=== PATIENT | male | born 1990 | race Caucasian/White ===

== ENCOUNTER 2016-05-03 20:40 | Emergency (ER) | payer MEDICAID ==
[~2016-05-03] VITALS: Ht 175.3 cm; Wt 82.8 kg
[2016-05-03 20:43] VITALS: Ht 175.3 cm; Wt 82.8 kg
[2016-05-03] MEDS ORDERED: CLOT30CR24 TOP (22:38)
--- NOTE | 2016-05-04 00:26 | ERD ---
ER Documentation Chief Complaint Date/Time DATE: 05/04/16 TIME: 00:20 Chief Complaint LARGE RED BUMPS ON PENIS X 1 MONTH HPI 25 year old male with no significant past medical history presents to the ED complaining of a rash of the tip of penis that started intermittently 1 month ago. States that it is itchy. Denies any penile discharge. Denies any concern for STDs. Denies any fever, chills, abdominal pain, nausea, chest pain, shortness of breath. ROS All systems reviewed and are negative except as per history of present illness. Medications Home Meds Active Scripts Clotrimazole* (Clotrimazole* AF) 1% - 30 Gm Cream.gm., 1 APPLIC TOP BID for 7 Days, TUB Prov:NANCY HOGAN PA-C 05/03/16 PMhx/Soc History of Surgery: No Anesthesia Reaction: No Hx Neurological Disorder: No Hx Respiratory Disorders: No Hx Cardiac Disorders: No Hx Psychiatric Problems: No Hx Miscellaneous Medical Probl: No Hx Alcohol Use: No Hx Substance Use: No Hx Tobacco Use: No Physical Exam Vitals Vital Signs Date Time Temp Pulse Resp B/P Pulse Ox O2 Delivery O2 Flow Rate FiO2 05/03/16 20:43 97.2 79 16 124/60 100 Physical Exam Const: [id number], well-nourished. In no acute distress. Head: Atraumatic, normocephalic Eyes: Normal Conjunctiva without injection. No purulent discharge. ENT: Normal external ear, nose. Moist oropharynx without tonsillar exudates. Non -erythematous pharynx. Uvula midline. No drooling. No trismus. Neck: No cervical midline tenderness. Full range of motion. No meningismus. No cervical lymphadenopathy. No JVD. Resp: Clear to auscultation bilaterally. No wheezing, rhonchi, rales, or crackles. No accessory muscle use. No retractions. Cardio: Regular rate and rhythm. No murmurs, rubs or gallops. Abd: Soft, nontender, non distended. Normal bowel sounds. No palpable masses. No rebound tenderness. No guarding. Negative McBurney's point. Negative psoas sign. Negative obturator sign. : Uncircumcised penis. No penile discharge. No scrotal discharge. No scrotal tenderness. No paraphimosis. No phimosis. No hernias. Skin: No petechiae or rashes Back: No midline tenderness. No CVA tenderness. Ext: No cyanosis, or edema. Neur: Awake and alert. Normal gait. Normal coordination. Psych: Normal Mood and Affect Procedures/MDM 25-year-old male with no significant past medical history presents to the ED complaining of a rash on the tip of his penis. Patient is afebrile and nontoxic -appearing. Patient has normal vital signs. Patient's physical exam is consistent with balanitis. There is no penile discharge. Low suspicion for STDs, urinary tract infection, pyelonephritis, acute abdomen, or other emergent conditions. Discharge medications: Clotrimazole Follow up with primary care physician in 1-2 days. Instructed patient to return to the ED sooner for any worsening symptoms. Patient's questions were answered. Patient understood and agreed with discharge plan. Patient discharged stable. Departure Diagnosis: Primary Impression: Balanitis Condition: Stable Patient Instructions: Balanitis Referrals: [facility] YOU HAVE RECEIVED A MEDICAL SCREENING EXAM AND THE RESULTS INDICATE THAT YOU DO NOT HAVE A CONDITION THAT REQUIRES URGENT TREATMENT IN THE EMERGENCY DEPARTMENT. FURTHER EVALUATION AND TREATMENT OF YOUR CONDITION CAN WAIT UNTIL YOU ARE SEEN IN YOUR DOCTORS OFFICE WITHIN THE NEXT 1-2 DAYS. IT IS YOUR RESPONSIBILITY TO MAKE AN APPOINTMENT FOR FOLOW-UP CARE. IF YOU HAVE A PRIMARY DOCTOR --you should call your primary doctor and schedule an appointment IF YOU DO NOT HAVE A PRIMARY DOCTOR YOU CAN CALL OUR PHYSICIAN REFERRAL HOTLINE AT IF YOU CAN NOT AFFORD TO SEE A PHYSICIAN YOU CAN CHOSE FROM THE FOLLOWING [facility] CLINICS [facility] [address] [facility] [address] [facility] [facility] [address] [facility] [address] [facility] [address] [facility]. [facility]. [address] [facility] [facility] YOU HAVE RECEIVED A MEDICAL SCREENING EXAM AND THE RESULTS INDICATE THAT YOU DO NOT HAVE A CONDITION THAT REQUIRES URGENT TREATMENT IN THE EMERGENCY DEPARTMENT. FURTHER EVALUATION AND TREATMENT OF YOUR CONDITION CAN WAIT UNTIL YOU ARE SEEN IN YOUR DOCTORS OFFICE WITHIN THE NEXT 1-2 DAYS. IT IS YOUR RESPONSIBILITY TO MAKE AN APPOINTMENT FOR FOLOW-UP CARE. IF YOU HAVE A PRIMARY DOCTOR --you should call your primary doctor and schedule and appointment IF YOU DO NOT HAVE A PRIMARY DOCTOR YOU CAN CALL OUR PHYSICIAN REFERRAL HOTLINE AT . IF YOU CAN NOT AFFORD TO SEE A PHYSICIAN YOU CAN CHOSE FROM THE FOLLOWING [facility] INSTITUTIONS: [facility] [address] [place] [address] [facility] [address] [place], [place] [id number] [place] [address] [address] [place] [address] [facility] URGENT CARE/SPECIALTIES Additional Instructions: Llame al doctor MAANA y dennis melissa LELAND PARA DENTRO DE 1-2 NOONAN.Dgale a la secretaria que nosotros le instruimos hacer esta leland.Avise o llame si monaco condicin se empeora antes de la leland. Regresa aqui si peor o no mejor. NANCY HOGAN PA-C May 04, 2016 00:26
== END 2016-05-03 22:48 | disposition home or self-care (01) ==
LOC: FTE 20:40
DX: N48.1 Balanitis (principal)
CPT/HCPCS: 99283

== ENCOUNTER 2018-05-16 21:39 | Inpatient (IN) | payer MEDICAID ==
[~2018-05-16] VITALS: Ht 175.3 cm; Wt 68.3 kg
[~2018-05-16 21:39] MED LIST: CLOT30CR24 TOP
[2018-05-16] MEDS ORDERED: SOD CHLORIDE 0.9% 500 ML IV STA (22:38)
[2018-05-16] MEDS: POTASSIUM CHLORIDE 100 ML IVPB SCH (23:30)
[2018-05-17] VITALS (10 sets, daily range): BP systolic 110–121; BP diastolic 56–59; PULSE 59–101; RESP 17–20; Ht 175.3 cm; Wt 68.3 kg
[2018-05-17] MEDS ORDERED: ESCI5TAB10 PO (01:13)
[2018-05-17] MEDS ORDERED: BENZ1TAB7 PO (01:13)
[2018-05-17] MEDS ORDERED: OLAN15TA7 PO (01:13)
[2018-05-17] MEDS ORDERED: CLON1TAB13 PO (01:13)
[2018-05-17] MEDS: POTASSIUM CHLORIDE 100 ML IVPB SCH ×2 (01:54→04:35)
--- NOTE | 2018-05-17 03:33 | HP ---
Date/Time of Note Date/Time of Note DATE: 05/17/18 TIME: 03:20 Assessment/Plan VTE Prophylaxis Pharmacological prophylaxis: heparin Lines/Catheters IV Catheter Type (from Nrs): Saline Lock Assessment/Plan Assessment/Plan 27-year-old male with a history of depression, psychosis, anxiety, catatonia brought to the ER for altered mentation and excessive sleepiness PLAN -Head CT without acute findings. U tox and EtOH negative. -Patient recently hospitalized at [facility]. Will obtain records -Obtain MRI of the brain -EEG -Neurology consult -Replace potassium -will hold home psych medications Result Diagram: 05/16/18224805/16/182248 Results 24hrs Laboratory Tests Test 05/16/18 22:49 05/16/18 23:05 White Blood Count 12.4 H Red Blood Count 4.74 Hemoglobin 14.1 Hematocrit 40.6 L Mean Corpuscular Volume 85.7 Mean Corpuscular Hemoglobin 29.7 Mean Corpuscular Hemoglobin Concent 34.7 Red Cell Distribution Width 11.9 Platelet Count 187 Mean Platelet Volume 12.4 H Immature Granulocytes % 0.600 H Neutrophils % 78.8 H Lymphocytes % 14.1 L Monocytes % 6.0 Eosinophils % 0.2 Basophils % 0.3 Nucleated Red Blood Cells % 0.0 Immature Granulocytes # 0.070 H Neutrophils # 9.8 H Lymphocytes # 1.8 Monocytes # 0.8 Eosinophils # 0.0 Basophils # 0.0 Nucleated Red Blood Cells # 0.0 Sodium Level 143 Potassium Level 2.6 *L Chloride Level 114 H Carbon Dioxide Level 18 L Anion Gap 11 Blood Urea Nitrogen 13 Creatinine 0.54 L Est Glomerular Filtrat Rate mL/min > 60 Glucose Level 76 Calcium Level 8.0 L Total Bilirubin 0.5 Direct Bilirubin 0.00 Indirect Bilirubin 0.5 Aspartate Amino Transf (AST/SGOT) 16 Alanine Aminotransferase (ALT/SGPT) 36 Alkaline Phosphatase 58 Troponin I < 0.012 Total Protein 6.4 Albumin 3.8 Globulin 2.60 Albumin/Globulin Ratio 1.46 Salicylates Level < 1.0 L Acetaminophen Level < 10.0 L Ethyl Alcohol Level < 10.0 H Urine Color YELLOW Urine Clarity CLEAR Urine pH 6.0 Urine Specific [place] 1.021 Urine Ketones 1+ H Urine Nitrite NEGATIVE Urine Bilirubin NEGATIVE Urine Urobilinogen 1+ H Urine Leukocyte Esterase NEGATIVE Urine Microscopic RBC 4 Urine Microscopic WBC 0 Urine Hemoglobin 1+ H Urine Glucose NEGATIVE Urine Total Protein NEGATIVE Urine Opiates Screen Negative Urine Barbiturates Negative Urine Amphetamines Screen Negative Urine Benzodiazepines Screen Negative Urine Cocaine Screen Negative Urine Cannabinoids Negative HPI/ROS Admit Date/Time Admit Date/Time Hx of Present Illness This is a 27-year-old male with a history of depression, psychosis, anxiety, catatonia who was brought to the ER for excessive sleepiness and altered menta tion. Information is gathered from sister who was at the bedside. Patient eyes closed and only responds to painful stimuli. According to the sister, problem started around July of last year after patient his . They do however CT chest or off and on usually on weekends. Patient progressively became more depressed and at times has been experiencing auditory hallucinations. He was diagnosed with depression, psychosis and anxiety and has been placed on psychiatric medications. In January of last year, sister noticed that patient sometimes sleeps excessively for 36 hours or so. This happened again last month. At that time he was taken to [facility] where he was medically managed. Sister is not sure about the results of the brain imaging at that time. Patient is now brought to our ER because his eyes has been closed and has been sleeping for 48 hours. Sister said the last time he opened his eyes was around 7 PM on Monday, which is 2 days ago. She said he is never aggressive or combative. She did mention about occasional auditory hallucinations. No alcohol or illicit drug use. No history of seizure or seizure-like activity witnessed. Sister also went on to say that he lives with her Monday through Monday and on weekends he stays with his ex-. She said every time he comes back after staying with his , he becomes more altered and sick. . When he presented to ER, vitals were stable. Head CT without acute findings. Lab shows a WBC of 12.4 and a potassium of 2.6. Patient has not eaten for 48 hours. . PMH/Family/Social Past Medical History Medical History: other (See HPI) Medications Current Medications Potassium Chloride 100 ml @ 50 mls/hr Q2H IVPB Last administered on 05/17/18at 01:54; Admin Dose 50 MLS/HR; Start 05/16/18 at 23:30; Stop 05/17/18 at 05:29 Coded Allergies: No Known Allergy (Unverified , 05/16/18) Past Surgical History Past Surgical Hx: no surgical history Family History Significant Family History: no pertinent family hx Social History Alcohol Use: none Smoking Status: Never smoker Drug Use: none Exam/Review of Systems Vital Signs Vitals Vital Signs Date Temp Pulse Resp B/P (MAP) Pulse Ox O2 O2 Flow FiO2 Time Delivery Rate 05/17/18 81 14 112/65 100 Room Air 02:00 (81) 05/16/18 98.3 21:47 Exam Constitutional: other (Eyes closed. Responds to painful stimuli. No acute distress.) Head: normocephalic, atraumatic Respiratory: clear to auscultation, normal air movement Cardiovascular: regular rate and rhythm Gastrointestinal: soft Extremities: normal pulses Neurological: other (Eyes closed. Responds to painful stimuli.) FRANCISCO PERDOMO MD May 17, 2018 03:32
[2018-05-17] MEDS ORDERED: ONDANSETRON 4 MG INJ IV PRN (04:00)
[2018-05-17] MEDS ORDERED: NACL 0.9% 3 ML SYG IV SCH (04:00)
[2018-05-17] MEDS: D5W-0.45 NACL + KCL 20 MEQ 1,000 ML IV SCH ×3 (06:52→20:19)
[2018-05-17] MEDS: HEPARIN 5,000 UNIT/1 ML VIAL SC SCH ×2 (10:27→22:55)
--- NOTE | 2018-05-17 12:07 | QN ---
Documentation Comment Unable to evaluate patient. He is non responsive KAREN MCINTOSH NP May 17, 2018 12:07
--- NOTE | 2018-05-17 13:35 | PN ---
Date/Time of Note Date/Time of Note DATE: 05/17/18 TIME: 13:28 Assessment/Plan VTE Prophylaxis Risk score (from [facility])>0 risk: 2 SCD applied (from [facility]): Yes Pharmacological prophylaxis: heparin Lines/Catheters IV C[facility]ter Type (from [facility] Saline Lock Urinary Cath still in place: No Assessment/Plan Assessment/Plan 1. Altered mental status, prob psychogenic, r/o oethers, follow up with MRI and neurology consultation 2. Depression, psychosis, anxiety, catatonia, follow up with psychiatry Result Diagram: 05/17/181 05/17/181 Results 24hrs Laboratory Tests Test 05/16/18 22:49 05/16/18 23:05 05/17/18 04:31 White Blood Count 12.4 H 9.9 # Red Blood Count 4.74 4.22 L Hemoglobin 14.1 12.5 L Hematocrit 40.6 L 37.0 L Mean Corpuscular Volume 85.7 87.7 Mean Corpuscular Hemoglobin 29.7 29.6 Mean Corpuscular Hemoglobin Concent 34.7 33.8 Red Cell Distribution Width 11.9 12.0 Platelet Count 187 163 Mean Platelet Volume 12.4 H 12.3 H Immature Granulocytes % 0.600 H 0.300 Neutrophils % 78.8 H 76.4 Lymphocytes % 14.1 L 16.3 Monocytes % 6.0 6.6 Eosinophils % 0.2 0.2 Basophils % 0.3 0.2 Nucleated Red Blood Cells % 0.0 0.0 Immature Granulocytes # 0.070 H 0.030 Neutrophils # 9.8 H 7.6 H Lymphocytes # 1.8 1.6 Monocytes # 0.8 0.7 Eosinophils # 0.0 0.0 Basophils # 0.0 0.0 Nucleated Red Blood Cells # 0.0 0.0 Sodium Level 143 144 Potassium Level 2.6 *L 3.9 Chloride Level 114 H 110 Carbon Dioxide Level 18 L 20 L Anion Gap 11 14 H Blood Urea Nitrogen 13 16 Creatinine 0.54 L 0.81 Est Glomerular Filtrat Rate mL/min > 60 > 60 Glucose Level 76 86 Calcium Level 8.0 L 9.6 Total Bilirubin 0.5 0.7 Direct Bilirubin 0.00 0.00 Indirect Bilirubin 0.5 0.7 Aspartate Amino Transf (AST/SGOT) 16 18 Alanine Aminotransferase (ALT/SGPT) 36 42 Alkaline Phosphatase 58 65 Troponin I < 0.012 Total Protein 6.4 7.2 Albumin 3.8 4.3 Globulin 2.60 2.90 Albumin/Globulin Ratio 1.46 1.48 Salicylates Level < 1.0 L Acetaminophen Level < 10.0 L Ethyl Alcohol Level < 10.0 H Urine Color YELLOW Urine Clarity CLEAR Urine pH 6.0 Urine Specific [place] 1.021 Urine Ketones 1+ H Urine Nitrite NEGATIVE Urine Bilirubin NEGATIVE Urine Urobilinogen 1+ H Urine Leukocyte Esterase NEGATIVE Urine Microscopic RBC 4 Urine Microscopic WBC 0 Urine Hemoglobin 1+ H Urine Glucose NEGATIVE Urine Total Protein NEGATIVE Urine Opiates Screen Negative Urine Barbiturates Negative Urine Amphetamines Screen Negative Urine Benzodiazepines Screen Negative Urine Cocaine Screen Negative Urine Cannabinoids Negative Hemoglobin A1c 5.3 Magnesium Level 2.3 Triglycerides Level 67 Cholesterol Level 144 LDL Cholesterol, Calculated 90 HDL Cholesterol 41 Cholesterol/HDL Ratio 3.5 Thyroid Stimulating Hormone (TSH) 0.903 Subjective 24 Hr Interval Summary Free Text/Dictation unresponsive but the sister at bedside states he moves all extremities and opens eyes himself Exam/Review of Systems Exam Vitals Vital Signs Date Temp Pulse Resp B/P (MAP) Pulse Ox O2 O2 Flow FiO2 Time Delivery Rate 05/17/18 68 12:31 05/17/18 98.0 20 110/59 99 Room Air 10:58 (76) Constitutional: well developed, non-verbal Head: normocephalic, atraumatic Eyes: nl conjunctiva, EOMI, nl lids, PERRL ENMT: nl external ears & nose, nl lips & teeth, nl nasal mucosa & septum Neck: supple, non-tender Respiratory: clear to auscultation, normal air movement; No congested cough, No crackles/rales, No diminished breath sounds, No intercostal retraction, No labored breathing, No respirations, No tactile fremitus, No wheezing, No other Cardiovascular: regular rate and rhythm, nl pulses Gastrointestinal: soft, nl liver, spleen Musculoskeletal: nl extremities to inspection Extremities: normal pulses; No calf tenderness, No cyanosis, No clubbing, No edema, No pitting pedal edema, No palpable cord, No tenderness, No other Neurological: other (sleeping, daughter states he moves all extremities and opens eyes) Results Results 24hrs Laboratory Tests Test 05/16/18 22:49 05/16/18 23:05 05/17/18 04:31 White Blood Count 12.4 H 9.9 # Red Blood Count 4.74 4.22 L Hemoglobin 14.1 12.5 L Hematocrit 40.6 L 37.0 L Mean Corpuscular Volume 85.7 87.7 Mean Corpuscular Hemoglobin 29.7 29.6 Mean Corpuscular Hemoglobin Concent 34.7 33.8 Red Cell Distribution Width 11.9 12.0 Platelet Count 187 163 Mean Platelet Volume 12.4 H 12.3 H Immature Granulocytes % 0.600 H 0.300 Neutrophils % 78.8 H 76.4 Lymphocytes % 14.1 L 16.3 Monocytes % 6.0 6.6 Eosinophils % 0.2 0.2 Basophils % 0.3 0.2 Nucleated Red Blood Cells % 0.0 0.0 Immature Granulocytes # 0.070 H 0.030 Neutrophils # 9.8 H 7.6 H Lymphocytes # 1.8 1.6 Monocytes # 0.8 0.7 Eosinophils # 0.0 0.0 Basophils # 0.0 0.0 Nucleated Red Blood Cells # 0.0 0.0 Sodium Level 143 144 Potassium Level 2.6 *L 3.9 Chloride Level 114 H 110 Carbon Dioxide Level 18 L 20 L Anion Gap 11 14 H Blood Urea Nitrogen 13 16 Creatinine 0.54 L 0.81 Est Glomerular Filtrat Rate mL/min > 60 > 60 Glucose Level 76 86 Calcium Level 8.0 L 9.6 Total Bilirubin 0.5 0.7 Direct Bilirubin 0.00 0.00 Indirect Bilirubin 0.5 0.7 Aspartate Amino Transf (AST/SGOT) 16 18 Alanine Aminotransferase (ALT/SGPT) 36 42 Alkaline Phosphatase 58 65 Troponin I < 0.012 Total Protein 6.4 7.2 Albumin 3.8 4.3 Globulin 2.60 2.90 Albumin/Globulin Ratio 1.46 1.48 Salicylates Level < 1.0 L Acetaminophen Level < 10.0 L Ethyl Alcohol Level < 10.0 H Urine Color YELLOW Urine Clarity CLEAR Urine pH 6.0 Urine Specific [place] 1.021 Urine Ketones 1+ H Urine Nitrite NEGATIVE Urine Bilirubin NEGATIVE Urine Urobilinogen 1+ H Urine Leukocyte Esterase NEGATIVE Urine Microscopic RBC 4 Urine Microscopic WBC 0 Urine Hemoglobin 1+ H Urine Glucose NEGATIVE Urine Total Protein NEGATIVE Urine Opiates Screen Negative Urine Barbiturates Negative Urine Amphetamines Screen Negative Urine Benzodiazepines Screen Negative Urine Cocaine Screen Negative Urine Cannabinoids Negative Hemoglobin A1c 5.3 Magnesium Level 2.3 Triglycerides Level 67 Cholesterol Level 144 LDL Cholesterol, Calculated 90 HDL Cholesterol 41 Cholesterol/HDL Ratio 3.5 Thyroid Stimulating Hormone (TSH) 0.903 Medications Medication Current Medications Potassium Chloride/Dextrose/ Sod Cl 1,000 ml @ 120 mls/hr Q8H20M IV Last administered on 05/17/18at 06:52; Admin Dose 120 MLS/HR; Start 05/17/18 at 03:39 IV Flush (NS 3 ml) 3 ml PER PROTOCOL IV ; Start 05/17/18 at 04:00 Ondansetron HCl (Zofran Inj) 4 mg Q6H PRN IV NAUSEA/VOMITING; Start 05/17/18 at 04:00 Heparin Sodium (Porcine) (Heparin (5000 Units/1ml)) 5,000 unit Q12 SC Last administered on 05/17/18at 10:27; Admin Dose 5,000 UNIT; Start 05/17/18 at 09:00 MELANI GIBBS MD May 17, 2018 13:35
[2018-05-18] VITALS (14 sets, daily range): BP systolic 94–121; BP diastolic 52–63; PULSE 49–81; RESP 16–19
[2018-05-18] MEDS: D5W-0.45 NACL + KCL 20 MEQ 1,000 ML IV SCH ×3 (04:17→15:05)
[2018-05-18] MEDS: HEPARIN 5,000 UNIT/1 ML VIAL SC SCH ×2 (09:06→20:56)
--- NOTE | 2018-05-18 14:51 | PN ---
Date/Time of Note Date/Time of Note DATE: 05/18/18 TIME: 14:49 Assessment/Plan VTE Prophylaxis Risk score (from Ns)>0 risk: 2 SCD applied (from Ns): Yes Pharmacological prophylaxis: heparin Lines/Catheters IV [facility] Type (from [facility] Saline Lock Urinary Cath still in place: Yes Reason Cath still needed: other (indicate) Assessment/Plan Assessment/Plan 1. Altered mental status, consider psychogenic, r/o others, unremarkable MRI brain, follow up with neurology consultation 2. Depression, psychosis, anxiety, catatonia 3. DVT prophylaxis: heparin SQ Result Diagram: 05/18/1862605/18/18626 Results 24hrs Laboratory Tests Test 05/18/18 06:27 White Blood Count 7.1 # Red Blood Count 4.15 L Hemoglobin 12.3 L Hematocrit 36.7 L Mean Corpuscular Volume 88.4 Mean Corpuscular Hemoglobin 29.6 Mean Corpuscular Hemoglobin Concent 33.5 Red Cell Distribution Width 12.3 Platelet Count 148 Mean Platelet Volume 12.4 H Immature Granulocytes % 0.100 Neutrophils % 63.1 Lymphocytes % 26.6 Monocytes % 8.5 Eosinophils % 1.3 Basophils % 0.4 Nucleated Red Blood Cells % 0.0 Immature Granulocytes # 0.010 Neutrophils # 4.5 Lymphocytes # 1.9 Monocytes # 0.6 Eosinophils # 0.1 Basophils # 0.0 Nucleated Red Blood Cells # 0.0 Sodium Level 142 Potassium Level 3.6 Chloride Level 108 Carbon Dioxide Level 24 Anion Gap 10 Blood Urea Nitrogen 9 Creatinine 0.75 Est Glomerular Filtrat Rate mL/min > 60 Glucose Level 102 Calcium Level 9.5 Total Bilirubin 0.4 Direct Bilirubin 0.00 Indirect Bilirubin 0.4 Aspartate Amino Transf (AST/SGOT) 16 Alanine Aminotransferase (ALT/SGPT) 32 Alkaline Phosphatase 59 Total Protein 6.9 Albumin 4.1 Globulin 2.80 Albumin/Globulin Ratio 1.46 Subjective 24 Hr Interval Summary Free Text/Dictation moves all extremities per the sister Exam/Review of Systems Exam Vitals Vital Signs Date Temp Pulse Resp B/P (MAP) Pulse Ox O2 O2 Flow FiO2 Time Delivery Rate 05/18/18 63 12:13 05/18/18 98.0 19 112/54 100 11:32 (73) 05/18/18 Room Air 01:51 Intake and Output 3/05/17/18 05/18/18 1515:00 23:00 07:00 IntakeIntake Total 200 ml 0 ml 1000 ml OutputOutput Total 1800 ml 350 ml BalanceBalance 200 ml -1800 ml 650 ml Constitutional: non-verbal Head: normocephalic, atraumatic Eyes: nl conjunctiva, EOMI, nl lids, PERRL ENMT: nl external ears & nose, nl lips & teeth, nl nasal mucosa & septum Neck: supple, non-tender Respiratory: clear to auscultation, normal air movement; No congested cough, No crackles/rales, No diminished breath sounds, No intercostal retraction, No labored breathing, No respirations, No tactile fremitus, No wheezing, No other Cardiovascular: regular rate and rhythm, nl pulses; No bruits, No diastolic murmur, No edema, No gallop, No irregular rhythm, No jugular venous distention (JVD), No murmurs/extra sounds, No rub, No systolic murmur, No S3, No S4, No other Gastrointestinal: soft, nl liver, spleen Musculoskeletal: nl extremities to inspection Extremities: normal pulses; No calf tenderness, No cyanosis, No clubbing, No edema, No pitting pedal edema, No palpable cord, No tenderness, No other Neurological: unresponsive Results Results 24hrs Laboratory Tests Test 05/18/18 06:27 White Blood Count 7.1 # Red Blood Count 4.15 L Hemoglobin 12.3 L Hematocrit 36.7 L Mean Corpuscular Volume 88.4 Mean Corpuscular Hemoglobin 29.6 Mean Corpuscular Hemoglobin Concent 33.5 Red Cell Distribution Width 12.3 Platelet Count 148 Mean Platelet Volume 12.4 H Immature Granulocytes % 0.100 Neutrophils % 63.1 Lymphocytes % 26.6 Monocytes % 8.5 Eosinophils % 1.3 Basophils % 0.4 Nucleated Red Blood Cells % 0.0 Immature Granulocytes # 0.010 Neutrophils # 4.5 Lymphocytes # 1.9 Monocytes # 0.6 Eosinophils # 0.1 Basophils # 0.0 Nucleated Red Blood Cells # 0.0 Sodium Level 142 Potassium Level 3.6 Chloride Level 108 Carbon Dioxide Level 24 Anion Gap 10 Blood Urea Nitrogen 9 Creatinine 0.75 Est Glomerular Filtrat Rate mL/min > 60 Glucose Level 102 Calcium Level 9.5 Total Bilirubin 0.4 Direct Bilirubin 0.00 Indirect Bilirubin 0.4 Aspartate Amino Transf (AST/SGOT) 16 Alanine Aminotransferase (ALT/SGPT) 32 Alkaline Phosphatase 59 Total Protein 6.9 Albumin 4.1 Globulin 2.80 Albumin/Globulin Ratio 1.46 Medications Medication Current Medications Potassium Chloride/Dextrose/ Sod Cl 1,000 ml @ 120 mls/hr Q8H20M IV Last administered on 05/18/18at 13:02; Admin Dose 120 MLS/HR; Start 05/17/18 at 03:39 IV Flush (NS 3 ml) 3 ml PER PROTOCOL IV ; Start 05/17/18 at 04:00 Ondansetron HCl (Zofran Inj) 4 mg Q6H PRN IV NAUSEA/VOMITING; Start 05/17/18 at 04:00 Heparin Sodium (Porcine) (Heparin (5000 Units/1ml)) 5,000 unit Q12 SC Last administered on 05/18/18at 09:06; Admin Dose 5,000 UNIT; Start 05/17/18 at 09:00 MELANI GIBBS MD May 18, 2018 14:51
--- NOTE | 2018-05-18 16:51 | CONS ---
Assessment/Plan Assessment/Plan Hospital Course 27 M c/ Hx of psychiatric ill, who is admitted for evaluation of ams.. The clinical picture suggests a decompensated psychiatric disorder.. An acute COAT PADDER process is, though, not yet excluded.. MRI brain is without evidence of acute intracranial pathology.. P: Await EEG to evaluate for epileptiform activity Add ammonia, B1, B12 levels Psychiatry follow up Continued medical management and supportive care per primary Will follow clinically Consultation Date/Type/Reason Admit Date/Time Type of Consult Neurology Reason for Consultation ams Requesting Provider: MELANI GIBBS MD Date/Time of Note DATE: 05/18/18 TIME: 16:50 Hx of Present Illness The pt is currently unable to contribute a hx. It is elsewhere noted: Hx of Present Illness This is a 27-year-old male with a history of depression, psychosis, anxiety, catatonia who was brought to the ER for excessive sleepiness and altered mentation. Information is gathered from sister who was at the bedside. Patient eyes closed and only responds to painful stimuli. According to the sister, problem started around July of last year after patient his . They do however CT chest or off and on usually on weekends. Patient progressively became more depressed and at times has been experiencing auditory hallucinations. He was diagnosed with depression, psychosis and anxiety and has been placed on psychiatric medications. In January of last year, sister noticed that patient sometimes sleeps excessively for 36 hours or so. This happened again last month. At that time he was taken to [facility] where he was medically managed. Sister is not sure about the results of the brain imaging at that time. Patient is now brought to our ER because his eyes h as been closed and has been sleeping for 48 hours. Sister said the last time he opened his eyes was around 7 PM on Monday, which is 2 days ago. She said he is never aggressive or combative. She did mention about occasional auditory hallucinations. No alcohol or illicit drug use. No history of seizure or seizure-like activity witnessed. Sister also went on to say that he lives with her Monday through Monday and on weekends he stays with his ex-. She said every time he comes back after staying with his , he becomes more altered and sick. . When he presented to ER, vitals were stable. Head CT without acute findings. Lab shows a WBC of 12.4 and a potassium of 2.6. Patient has not eaten for 48 hours. . Subjective hx not possible: pt non-verbal Exam/Review of Systems Exam Vitals Vital Signs Date Temp Pulse Resp B/P (MAP) Pulse Ox O2 O2 Flow FiO2 Time Delivery Rate 05/18/18 81 16:13 05/18/18 98.1 19 105/56 100 16:02 (72) 05/18/18 Room Air 01:51 Intake and Output 05/17/18 05/17/18 05/18/18 1515:00 23:00 07:00 IntakeIntake Total 200 ml 0 ml 1000 ml OutputOutput Total 1800 ml 350 ml BalanceBalance 200 ml -1800 ml 650 ml Exam PE: Gen Appearance: No Apparent Distress HEENT: Normocephalic Cardiovascular: Regular rate Abdomen: Soft Extremities: Dry NE: The patient was obtunded and nonverbal. The pt did not open his eyes or otherwise respond meaningfully to noxious stimuli. Cranial nerve examination was limited by mental status. Pupils were equal and reactive to light. There was no afferent pupillary defect. Funduscopic examination was limited. Face was grossly symmetric, w/ present corneal reflexes. Tone was normal. Muscle bulk was normal. I did not see fasciculations. The patient did not withdraw to noxious stimulation x 4. Coordination and gait testing was limited by mental status. Arm and leg reflexes were within normal limits and symmetric. Peacock's sign was absent. Plantar responses were flexor. Results Result Diagram: 05/18/18 0627 05/18/18 0627 Results 24hrs Laboratory Tests Test 05/18/18 06:27 White Blood Count 7.1 # Red Blood Count 4.15 L Hemoglobin 12.3 L Hematocrit 36.7 L Mean Corpuscular Volume 88.4 Mean Corpuscular Hemoglobin 29.6 Mean Corpuscular Hemoglobin Concent 33.5 Red Cell Distribution Width 12.3 Platelet Count 148 Mean Platelet Volume 12.4 H Immature Granulocytes % 0.100 Neutrophils % 63.1 Lymphocytes % 26.6 Monocytes % 8.5 Eosinophils % 1.3 Basophils % 0.4 Nucleated Red Blood Cells % 0.0 Immature Granulocytes # 0.010 Neutrophils # 4.5 Lymphocytes # 1.9 Monocytes # 0.6 Eosinophils # 0.1 Basophils # 0.0 Nucleated Red Blood Cells # 0.0 Sodium Level 142 Potassium Level 3.6 Chloride Level 108 Carbon Dioxide Level 24 Anion Gap 10 Blood Urea Nitrogen 9 Creatinine 0.75 Est Glomerular Filtrat Rate mL/min > 60 Glucose Level 102 Calcium Level 9.5 Total Bilirubin 0.4 Direct Bilirubin 0.00 Indirect Bilirubin 0.4 Aspartate Amino Transf (AST/SGOT) 16 Alanine Aminotransferase (ALT/SGPT) 32 Alkaline Phosphatase 59 Total Protein 6.9 Albumin 4.1 Globulin 2.80 Albumin/Globulin Ratio 1.46 Medications Medication Current Medications Potassium Chloride/Dextrose/ Sod Cl 1,000 ml @ 75 mls/hr [id number] IV Last administered on 05/18/18at 15:05; Admin Dose 75 MLS/HR; Start 05/17/18 at 03:39 IV Flush (NS 3 ml) 3 ml PER PROTOCOL IV ; Start 05/17/18 at 04:00 Ondansetron HCl (Zofran Inj) 4 mg Q6H PRN IV NAUSEA/VOMITING; Start 05/17/18 at 04:00 Heparin Sodium (Porcine) (Heparin (5000 Units/1ml)) 5,000 unit Q12 SC Last administered on 05/18/18at 09:06; Admin Dose 5,000 UNIT; Start 05/17/18 at 09:00 Past Medical History reviewed Medical History: other (See HPI) Home Meds Active Scripts Clotrimazole* (Clotrimazole* AF) 1% - 30 Gm Cream.gm., 1 APPLIC TOP BID for 7 Days, TUB Prov:NANCY HOGAN PA-C 05/03/16 Reported Medications Escitalopram Oxalate* (Escitalopram Oxalate*) 5 Mg Tablet, 5 MG PO DAILY, #30 TAB 05/17/18 Clonazepam* (Clonazepam*) 1 Mg Tablet, 1 MG PO Q8H PRN for ANXIETY, TAB 05/17/18 Olanzapine* (Olanzapine*) 15 Mg Tablet, 15 MG PO DAILY, TAB 05/17/18 Benztropine Mesylate* (Benztropine Mesylate*) 1 Mg Tablet, 1 MG PO BID, TAB 05/17/18 Medications Current Medications Potassium Chloride/Dextrose/ Sod Cl 1,000 ml @ 75 mls/hr [id number] IV Last administered on 05/18/18at 15:05; Admin Dose 75 MLS/HR; Start 05/17/18 at 03:39 IV Flush (NS 3 ml) 3 ml PER PROTOCOL IV ; Start 05/17/18 at 04:00 Ondansetron HCl (Zofran Inj) 4 mg Q6H PRN IV NAUSEA/VOMITING; Start 05/17/18 at 04:00 Heparin Sodium (Porcine) (Heparin (5000 Units/1ml)) 5,000 unit Q12 SC Last administered on 05/18/18at 09:06; Admin Dose 5,000 UNIT; Start 05/17/18 at 09:00 Allergies: Coded Allergies: No Known Allergy (Unverified , 05/17/18) Past Surgical History reviewed Past Surgical Hx: no surgical history Social History reviewed Alcohol Use: none Smoking Status: Never smoker Drug Use: none ELODIA RODRIGUEZ NP May 18, 2018 16:51 FIDEL CHAVEZ May 18, 2018 20:11
[2018-05-19] VITALS (13 sets, daily range): BP systolic 106–117; BP diastolic 58–63; PULSE 68–129; RESP 16
[2018-05-19] MEDS: D5W-0.45 NACL + KCL 20 MEQ 1,000 ML IV SCH ×2 (01:16→14:49)
--- NOTE | 2018-05-19 07:25 | EEG ---
EEG NOTE Report Details DATE OF TEST: 05/17/18 HISTORY: The patient is a 27-year-old M who presents with altered mental status. This EEG is requested to evaluate for seizures. SEDATION: None. CONDITIONS OF RECORDING: This EEG was recorded digitally on the [employer] machine, using the International 10-20 System of electrodes plus anterior temporals and [place]. STATES SAMPLED: Comatose. FINDINGS: During wakefulness, there is an 8 Hz posterior dominant rhythm. There is a normal [id number] frequency-amplitude gradient. The remainder of the awake background is normal. Photic stimulation does not elicit any definite driving responses or epileptiform discharges. Hyperventilation was not performed. No asymmetries, focal abnormalities or epileptiform discharges were seen. IMPRESSION: Normal electroencephalogram during wakefulness and drowsiness. FIDEL CHAVEZ May 19, 2018 07:25
[2018-05-19] MEDS: HEPARIN 5,000 UNIT/1 ML VIAL SC SCH ×2 (08:18→21:47)
--- NOTE | 2018-05-19 09:18 | CONS ---
Assessment/Plan Assessment/Plan Hospital Course 27 M c/ Hx of psychiatric ill, who is admitted for evaluation of ams.. The clinical picture suggests a decompensated psychiatric disorder.. 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 MRI brain is without evidence of acute intracranial pathology.. EEG was normal. TSH/ammonia/B12 wnl P: Await B1 levels Psychiatry follow up Continued medical management and supportive care per primary Will follow clinically Consultation Date/Type/Reason Admit Date/Time May 17, 2018 at 01:36 Type of Consult Neurology Reason for Consultation ams Requesting Provider: MELANI GIBBS MD Date/Time of Note DATE: 05/19/18 TIME: 09:18 24 HR Interval Summary Free Text/Dictation Continues acute care. S/p EEG Exam Vital Signs Vitals Vital Signs Date Temp Pulse Resp B/P (MAP) Pulse Ox O2 O2 Flow FiO2 Time Delivery Rate 05/19/18 84 08:00 05/19/18 98.3 16 106/59 96 Room Air 07:11 (75) Intake and Output 05/18/18 05/18/18 05/19/18 1515:00 23:00 07:00 IntakeIntake Total 360 ml 0 ml 450 ml OutputOutput Total 1600 ml 1000 ml BalanceBalance 360 ml -1600 ml -550 ml Exam PE: Gen Appearance: No Apparent Distress HEENT: Normocephalic Cardiovascular: Regular rate Abdomen: Soft Extremities: Dry NE: The patient was obtunded and nonverbal. The pt did not open his eyes or otherwise respond meaningfully to noxious stimuli. Cranial nerve examination was limited by mental status. Pupils were equal and reactive to light. There was no afferent pupillary defect. Funduscopic examination was limited. Face was grossly symmetric, w/ present corneal reflexes. Tone was normal. Muscle bulk was normal. I did not see fasciculations. The patient did not withdraw to noxious stimulation x 4. Coordination and gait testing was limited by mental status. Arm and leg reflexes were within normal limits and symmetric. Peacock's sign was absent. Plantar responses were flexor. ELODIA RODRIGUEZ NP May 19, 2018 09:18 FIDEL CHAVEZ May 20, 2018 06:58
--- NOTE | 2018-05-19 15:51 | PSY ---
Date/Time of Note Date/Time of Note DATE: 05/19/18 TIME: 18:41 Psychiatric Subjective Eval Consent Pt consented to telemedicine: Yes Subjective Evaluation Patient location: inpatient Chief Complaint: bib ra from home for aloc, hx of psych dx, depression, altered, History of present illness HPI: 27 yo male with ho depression and psychosis, is catatonic, brought into hospital inpatient for catatonia, unresponsive (is responsive ot pain) not eating just keeps eyes closed. Sister was in room and gave parallel via net finisher. Per her, pt has been catatonic since 05/15. Reports his happened a month ago also. Reports he did wake up once to day to ask what is going on. Sister also reprots pt was having AH before catatonia set in. Past Psych Hx: + ho psych admits, denies si Meds: was taking clonazepam 1mg hs, zyprexa 5mg qhs and lexapro All: nkda PMhx: denies MSE: pt disheveled, eyes closed, looks lie he is sleeping but does not respond to voice Imp: 27 yo male, catatonic gravely dsiabled Full delirium workup including MRI/CT brain/head, rpr tsh, utox infectious workup (e.g., UA), cbc lfts nh4 electrolytes Utox 5150 psych admit For moderate agitation Zyprexa 5mg po prn For severe agitation or catatonia chlorpromazine 25mg im prn recommend chlorpromazine 15 im bid or 25mg pobid ativan 1mg tid iv for catatonia (can try 2mg iv x1 for first dose if 1mg has no effect and pt not too drowsy; once pt responds affect taper to avoid dependence) 1:1 sitter while on medicine Medical history Problems Medical Problems: (1) Balanitis Status: Acute (2) Balanitis Status: Acute (3) Catatonia Status: Acute (4) Hypokalemia Status: Acute Allergies: Coded Allergies: No Known Allergy (Unverified , 05/17/18) Psychiatric Objective Eval Mental Status Examination: Laboratory Results Laboratory Tests Test 05/18/18 06:27 05/18/18 20:46 05/19/18 06:03 White Blood Count 7.1 10^3/ul Red Blood Count 4.15 10^6/ul Hemoglobin 12.3 g/dl Hematocrit 36.7 % Mean Corpuscular Volume 88.4 fl Mean Corpuscular Hemoglobin 29.6 pg Mean Corpuscular 33.5 g/dl Hemoglobin Concent Red Cell Distribution Width 12.3 % Platelet Count 148 10^3/UL Mean Platelet Volume 12.4 fl Immature Granulocytes % 0.100 % Neutrophils % 63.1 % Lymphocytes % 26.6 % Monocytes % 8.5 % Eosinophils % 1.3 % Basophils % 0.4 % Nucleated Red Blood Cells % 0.0 /100WBC Immature Granulocytes # 0.010 10^3/ul Neutrophils # 4.5 10^3/ul Lymphocytes # 1.9 10^3/ul Monocytes # 0.6 10^3/ul Eosinophils # 0.1 10^3/ul Basophils # 0.0 10^3/ul Nucleated Red Blood Cells # 0.0 10^3/ul Sodium Level 142 mmol/L 141 mmol/L Potassium Level 3.6 mmol/L 3.4 mmol/L Chloride Level 108 mmol/L 106 mmol/L Carbon Dioxide Level 24 mmol/L 24 mmol/L Anion Gap 10 11 Blood Urea Nitrogen 9 mg/dl 8 mg/dl Creatinine 0.75 mg/dl 0.86 mg/dl Est Glomerular Filtrat Rate mL/min > 60 mL/min > 60 mL/min Glucose Level 102 mg/dl 97 mg/dl Calcium Level 9.5 mg/dl 9.7 mg/dl Total Bilirubin 0.4 mg/dl Direct Bilirubin 0.00 mg/dl Indirect Bilirubin 0.4 mg/dl Aspartate Amino Transf (AST/SGOT) 16 IU/L Alanine 32 IU/L Aminotransferase (ALT/SGPT) Alkaline Phosphatase 59 IU/L Total Protein 6.9 g/dl Albumin 4.1 g/dl Globulin 2.80 g/dl Albumin/Globulin Ratio 1.46 Ammonia < 9 umol/l Vitamin B12 Level 584 pg/ml Magnesium Level 2.0 mg/dl Assessment and Plan Recommendation/Plan Multiple antipsychotics: No Discharge Disposition: Psychiatric inpatient Legal Status: Place involuntary hold BRENDAN SIM May 19, 2018 15:51
--- NOTE | 2018-05-19 17:19 | PN ---
Date/Time of Note Date/Time of Note DATE: 05/19/18 TIME: 17:15 Assessment/Plan VTE Prophylaxis Risk score (from Nsg)>0 risk: 2 SCD applied (from Nsg): Yes Pharmacological prophylaxis: NA/contraindicated Pharm contraindication: low risk/ambulating Lines/Catheters IV Catheter Type (from Nrsg): Saline Lock Urinary Cath still in place: Yes Reason Cath still needed: other (indicate) (catatonia) Assessment/Plan Assessment/Plan 27 yo schizophrenic man presents with acute catatonia #Catatonia - seen by psychiatry today - Will start IM chlorpromazine ATC - IV ativan prn catatonia #Schizophrenia - Will resume home meds when acute catatonia resolves and patient able to take PO DVT: SCDs GI: None Result Diagram: 05/18/1827 05/19/18 0603 Subjective 24 Hr Interval Summary Free Text/Dictation No acute overnight events. Remains catatonic and unresponsive. According to sister he woke up for 15 minutes, asked where he was, appeared confused; then fell back asleep. Exam/Review of Systems Exam Vitals Vital Signs Date Temp Pulse Resp B/P (MAP) Pulse Ox O2 O2 Flow FiO2 Time Delivery Rate 05/19/18 89 16:00 05/19/18 98.2 16 114/58 99 Room Air 15:05 (76) Intake and Output 05/18/18 05/18/18 05/19/18 1515:00 23:00 07:00 IntakeIntake Total 360 ml 0 ml 450 ml OutputOutput Total 1600 ml 1000 ml BalanceBalance 360 ml -1600 ml -550 ml Exam Constitutional: non-verbal Head: normocephalic, atraumatic Eyes: nl conjunctiva, EOMI, nl lids, PERRL ENMT: nl external ears & nose, nl lips & teeth, nl nasal mucosa & septum Neck: supple, non-tender Respiratory: clear to auscultation, normal air movement; No congested cough, No crackles/rales, No diminished breath sounds, No intercostal retraction, No labored breathing, No respirations, No tactile fremitus, No wheezing, No other Cardiovascular: regular rate and rhythm, nl pulses; No bruits, No diastolic murmur, No edema, No gallop, No irregular rhythm, No jugular venous distention (JVD), No murmurs/extra sounds, No rub, No systolic murmur, No S3, No S4, No other Gastrointestinal: soft, nl liver, spleen Musculoskeletal: nl extremities to inspection Extremities: normal pulses; No calf tenderness, No cyanosis, No clubbing, No edema, No pitting pedal edema, No palpable cord, No tenderness, No other Neurological: unresponsive Results Results 24hrs Laboratory Tests Test 05/18/18 20:46 05/19/18 06:03 Ammonia < 9 L Vitamin B12 Level 584 Sodium Level 141 Potassium Level 3.4 L Chloride Level 106 Carbon Dioxide Level 24 Anion Gap 11 Blood Urea Nitrogen 8 Creatinine 0.86 Est Glomerular Filtrat Rate mL/min > 60 Glucose Level 97 Calcium Level 9.7 Magnesium Level 2.0 Medications Medication Current Medications Potassium Chloride/Dextrose/ Sod Cl 1,000 ml @ 75 mls/hr [id number] IV Last administered on 05/19/18at 14:49; Admin Dose 75 MLS/HR; Start 05/17/18 at 03:39 IV Flush (NS 3 ml) 3 ml PER PROTOCOL IV ; Start 05/17/18 at 04:00 Ondansetron HCl (Zofran Inj) 4 mg Q6H PRN IV NAUSEA/VOMITING; Start 05/17/18 at 04:00 Heparin Sodium (Porcine) (Heparin (5000 Units/1ml)) 5,000 unit Q12 SC Last a dministered on 05/19/18at 08:18; Admin Dose 5,000 UNIT; Start 05/17/18 at 09:00 GISSEL CLAYTON MD May 19, 2018 17:19
[2018-05-19] MEDS ORDERED: LORAZEPAM 2 MG INJ IV ONE (17:30)
[2018-05-19] MEDS: CHLORPROMAZINE 25 MG INJ IM SCH (21:35)
[2018-05-20] VITALS (11 sets, daily range): BP systolic 107–123; BP diastolic 55–58; PULSE 75–107; RESP 16–19
[2018-05-20] MEDS: D5W-0.45 NACL + KCL 20 MEQ 1,000 ML IV SCH ×2 (03:54→17:01)
[2018-05-20] MEDS: CHLORPROMAZINE 25 MG INJ IM SCH ×2 (09:53→21:29)
[2018-05-20] MEDS: HEPARIN 5,000 UNIT/1 ML VIAL SC SCH ×2 (09:54→21:43)
--- NOTE | 2018-05-20 11:03 | CONS ---
Assessment/Plan Assessment/Plan Hospital Course 27 M c/ Hx of psychiatric ill, who is admitted for evaluation of ams.. The clinical picture suggests a decompensated psychiatric disorder.. 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 MRI brain is without evidence of acute intracranial pathology.. EEG was normal. TSH/ammonia/B12 wnl P: Await B1 levels Psychiatry follow up Continued medical management and supportive care per primary Will follow clinically Consultation Date/Type/Reason Admit Date/Time May 17, 2018 at 01:36 Type of Consult Neurology Reason for Consultation ams Requesting Provider: MELANI GIBBS MD Date/Time of Note DATE: 05/20/18 TIME: 11:02 24 HR Interval Summary Free Text/Dictation Continues acute care. Family at bedside reports that he has had wakeful episodes w/ interaction.. Exam Vital Signs Vitals Vital Signs Date Temp Pulse Resp B/P (MAP) Pulse Ox O2 O2 Flow FiO2 Time Delivery Rate 05/20/18 93 08:11 05/20/18 98.9 18 113/56 96 07:11 (75) 05/19/18 Room Air 23:50 Intake and Output 05/19/18 05/19/18 05/20/18 1515:00 23:00 07:00 IntakeIntake Total 550 ml 300 ml 1000 ml OutputOutput Total 1800 ml 1200 ml BalanceBalance 550 ml -1500 ml -200 ml Exam PE: Gen Appearance: No Apparent Distress HEENT: Normocephalic Cardiovascular: Regular rate Abdomen: Soft Extremities: Dry NE: The patient was obtunded, nonverbal.. Cranial nerve examination was limited by mental status. Pupils were equal and reactive to light. There was no afferent pupillary defect. Funduscopic examination was limited. Face was grossly symmetric, w/ present corneal and cough reflexes. Tone was normal. Muscle bulk was normal. I did not see fasciculations. The patient withdrew to noxious stimulation x 4. Coordination and gait testing was limited by mental status. Arm and leg reflexes were within normal limits and symmetric. Peacock's sign was absent. Plantar responses were flexor. FIDEL CHAVEZ May 20, 2018 11:03
[2018-05-20] MEDS: LORAZEPAM 2 MG INJ IV PRN (13:16)
--- NOTE | 2018-05-20 14:15 | PN ---
Date/Time of Note Date/Time of Note DATE: 05/20/18 TIME: 14:14 Assessment/Plan VTE Prophylaxis Risk score (from Nsg)>0 risk: 4 SCD applied (from Nsg): Yes Pharmacological prophylaxis: NA/contraindicated Pharm contraindication: low risk/ambulating Lines/Catheters IV Catheter Type (from Nrsg): Saline Lock Urinary Cath still in place: Yes Reason Cath still needed: other (indicate) (catatonia) Assessment/Plan Assessment/Plan 27 yo schizophrenic man presents with acute catatonia #Catatonia - seen by tele-psych - IM chlorpromazine BID - IV ativan prn catatonia #Schizophrenia - Will resume home meds when acute catatonia resolves and patient able to take PO DVT: SCDs GI: None Result Diagram: 05/20/18 0608 05/20/18 06 Subjective 24 Hr Interval Summary Free Text/Dictation No acute overnight events. On my exam he is still completely unresponsive. According to sister, he has more brief episodes of wakefulness. According to nurse, does not fully wake up after ativan but does have more fac ial movements and grimacing. Exam/Review of Systems Exam Vitals Vital Signs Date Temp Pulse Resp B/P (MAP) Pulse Ox O2 O2 Flow FiO2 Time Delivery Rate 05/20/18 107 12:17 05/20/18 98.7 17 107/58 95 11:36 (74) 05/19/18 Room Air 23:50 Intake and Output 05/19/18 05/19/18 05/20/18 1515:00 23:00 07:00 IntakeIntake Total 550 ml 300 ml 1000 ml OutputOutput Total 1800 ml 1200 ml BalanceBalance 550 ml -1500 ml -200 ml Exam Constitutional: non-verbal Head: normocephalic, atraumatic Eyes: nl conjunctiva, EOMI, nl lids, PERRL ENMT: nl external ears & nose, nl lips & teeth, nl nasal mucosa & septum Neck: supple, non-tender Respiratory: clear to auscultation, normal air movement; No congested cough, No crackles/rales, No diminished breath sounds, No in tercostal retraction, No labored breathing, No respirations, No tactile fremitus, No wheezing, No other Cardiovascular: regular rate and rhythm, nl pulses; No bruits, No diastolic murmur, No edema, No gallop, No irregular rhythm, No jugular venous distention (JVD), No murmurs/extra sounds, No rub, No systolic murmur, No S3, No S4, No other Gastrointestinal: soft, nl liver, spleen Musculoskeletal: nl extremities to inspection Extremities: normal pulses; No calf tenderness, No cyanosis, No clubbing, No edema, No pitting pedal edema, No palpable cord, No tenderness, No other Neurological: unresponsive Results Results 24hrs Laboratory Tests Test 05/20/18 06:08 White Blood Count 5.6 # Red Blood Count 4.32 L Hemoglobin 12.8 L Hematocrit 38.3 L Mean Corpuscular Volume 88.7 Mean Corpuscular Hemoglobin 29.6 Mean Corpuscular Hemoglobin Concent 33.4 Red Cell Distribution Width 12.2 Platelet Count 158 Mean Platelet Volume 11.7 H Immature Granulocytes % 0.400 Neutrophils % 74.0 Lymphocytes % 15.6 Monocytes % 8.3 Eosinophils % 1.3 Basophils % 0.4 Nucleated Red Blood Cells % 0.0 Immature Granulocytes # 0.020 Neutrophils # 4.1 Lymphocytes # 0.9 Monocytes # 0.5 Eosinophils # 0.1 Basophils # 0.0 Nucleated Red Blood Cells # 0.0 Sodium Level 141 Potassium Level 3.9 Chloride Level 105 Carbon Dioxide Level 24 Anion Gap 12 Blood Urea Nitrogen 9 Creatinine 0.72 Est Glomerular Filtrat Rate mL/min > 60 Glucose Level 99 Calcium Level 9.6 Phosphorus Level 4.6 Magnesium Level 2.0 Total Bilirubin 0.3 Direct Bilirubin 0.00 Indirect Bilirubin 0.3 Aspartate Amino Transf (AST/SGOT) 24 Alanine Aminotransferase (ALT/SGPT) 32 Alkaline Phosphatase 66 Ammonia 22 Total Protein 7.4 Albumin 4.2 Globulin 3.20 Albumin/Globulin Ratio 1.31 Medications Medication Current Medications Potassium Chloride/Dextrose/ Sod Cl 1,000 ml @ 75 mls/hr [id number] IV Last administered on 05/20/18at 03:54; Admin Dose 75 MLS/HR; Start 05/17/18 at 03:39 IV Flush (NS 3 ml) 3 ml PER PROTOCOL IV ; Start 05/17/18 at 04:00 Ondansetron HCl (Zofran Inj) 4 mg Q6H PRN IV NAUSEA/VOMITING; Start 05/17/18 at 04:00 Heparin Sodium (Porcine) (Heparin (5000 Units/1ml)) 5,000 unit Q12 SC Last administered on 05/20/18 09:54; Admin Dose 5,000 UNIT; Start 05/17/18 at 09:00 Chlorpromazine (Thorazine) 15 mg BID IM Last administered on 05/20/18 09:53; Admin Dose 15 MG; Start 05/19/18 at 21:00 Lorazepam (Ativan) 1 mg Q8H PRN IV catatonia Last administered on 05/20/18at 13:16; Admin Dose 1 MG; Start 05/20/18 at 01:00 GISSEL CLAYTON MD May 20, 2018 14:15
[2018-05-21] VITALS (10 sets, daily range): BP systolic 92–135; BP diastolic 52–77; PULSE 81–104; RESP 18–20
[2018-05-21] MEDS: LORAZEPAM 2 MG INJ IV PRN (03:26)
[2018-05-21] MEDS: D5W-0.45 NACL + KCL 20 MEQ 1,000 ML IV SCH ×2 (05:56→19:44)
[2018-05-21] MEDS: HEPARIN 5,000 UNIT/1 ML VIAL SC SCH ×2 (09:12→20:12)
[2018-05-21] MEDS: CHLORPROMAZINE 25 MG INJ IM SCH ×2 (10:04→20:08)
--- NOTE | 2018-05-21 14:09 | PN ---
Date/Time of Note Date/Time of Note DATE: 05/21/18 TIME: 13:49 Assessment/Plan VTE Prophylaxis Risk score (from Ns)>0 risk: 2 SCD applied (from Nsg): Yes Pharmacological prophylaxis: heparin Lines/Catheters IV Catheter Type (from Nrsg): Saline Lock Urinary Cath still in place: Yes Reason Cath still needed: other (indicate) Assessment/Plan Assessment/Plan 1.Depression, psychosis, anxiety, catatonia, on chlorpromazine follow up with psychiatry, supportive care 2. DVT prophylaxis: heparin SQ Result Diagram: 05/20/18 0608 05/20/18 0608 Subjective 24 Hr Interval Summary Free Text/Dictation woke up shortly but unresponsive right away when I exam him Exam/Review of Systems Exam Vitals Vital Signs Date Temp Pulse Resp B/P (MAP) Pulse Ox O2 O2 Flow FiO2 Time Delivery Rate 05/21/18 81 12:01 05/21/18 97.8 20 110/56 96 11:40 (74) 05/19/18 Room Air 23:50 Intake and Output 05/20/18 05/20/18 05/21/18 1515:00 23:00 07:00 IntakeIntake Total 1075 ml 925 ml OutputOutput Total 1400 ml 600 ml BalanceBalance -325 ml 325 ml Constitutional: non-verbal Head: normocephalic, atraumatic Eyes: nl conjunctiva, EOMI, nl lids, PERRL ENMT: nl external ears & nose, nl lips & teeth, nl nasal mucosa & septum Neck: supple, non-tender Respiratory: clear to auscultation, normal air movement; No congested cough, No crackles/rales, No diminished breath sounds, No intercostal retraction, No labored breathing, No respirations, No tactile fremitus, No wheezing, No other Cardiovascular: regular rate and rhythm, nl pulses; No bruits, No diastolic murmur, No edema, No gallop, No irregular rhythm, No jugular venous distention (JVD), No murmurs/extra sounds, No rub, No systolic murmur, No S3, No S4, No other Gastrointestinal: soft, nl liver, spleen Musculoskeletal: nl extremities to inspection Extremities: normal pulses; No calf tenderness, No cyanosis, No clubbing, No edema, No pitting pedal edema, No palpable cord, No tenderness, No other Neurological: unresponsive Medications Medication Current Medications Potassium Chloride/Dextrose/ Sod Cl 1,000 ml @ 75 mls/hr [id number] IV Last administered on 05/21/18at 05:56; Admin Dose 75 MLS/HR; Start 05/17/18 at 03:39 IV Flush (NS 3 ml) 3 ml PER PROTOCOL IV ; Start 05/17/18 at 04:00 Ondansetron HCl (Zofran Inj) 4 mg Q6H PRN IV NAUSEA/VOMITING; Start 05/17/18 at 04:00 Heparin Sodium (Porcine) (Heparin (5000 Units/1ml)) 5,000 unit Q12 SC Last administered on 05/21/18 09:12; Admin Dose 5,000 UNIT; Start 05/17/18 at 09:00 Chlorpromazine (Thorazine) 15 mg BID IM Last administered on 05/21/18at 10:04; Admin Dose 15 MG; Start 05/19/18 at 21:00 Lorazepam (Ativan) 1 mg Q8H PRN IV catatonia Last administered on 05/21/18 03:26; Admin Dose 1 MG; Start 05/20/18 at 01:00 MELANI GIBBS MD May 21, 2018 14:07
--- NOTE | 2018-05-21 14:17 | CONS ---
Assessment/Plan Assessment/Plan Hospital Course 27 M c/ Hx of psychiatric ill, who is admitted for evaluation of ams.. The clinical picture suggests a decompensated psychiatric disorder.. 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 MRI brain is without evidence of acute intracranial pathology.. EEG was normal. TSH/ammonia/B12 wnl P: Await B1 levels Psychiatry follow up Continued medical management and supportive care per primary Will follow clinically Consultation Date/Type/Reason Admit Date/Time May 17, 2018 at 01:36 Type of Consult Neurology Reason for Consultation ams Requesting Provider: MELANI GIBBS MD Date/Time of Note DATE: 05/21/18 TIME: 14:17 24 HR Interval Summary Free Text/Dictation Continues acute care. Seen by telepsych. Subjective hx not possible: pt non-verbal Exam Vital Signs Vitals Vital Signs Date Temp Pulse Resp B/P (MAP) Pulse Ox O2 O2 Flow FiO2 Time Delivery Rate 05/21/18 81 12:01 05/21/18 97.8 20 110/56 96 11:40 (74) 05/19/18 Room Air 23:50 Intake and Output 05/20/18 05/20/18 05/21/18 1515:00 23:00 07:00 IntakeIntake Total 1075 ml 925 ml OutputOutput Total 1400 ml 600 ml BalanceBalance -325 ml 325 ml Exam PE: Gen Appearance: No Apparent Distress HEENT: Normocephalic Cardiovascular: Regular rate Abdomen: Soft Extremities: Dry NE: The patient was awake and nonverbal.. Turned head to side and closed eyes once HCPs walked into room Cranial nerve examination was limited by mental status. Pupils were equal and reactive to light. There was no afferent pupillary defect. Funduscopic examination was limited. Face was grossly symmetric, w/ present corneal and cough reflexes. Tone was normal. Muscle bulk was normal. I did not see fasciculations. The patient withdrew to noxious stimulation x 4. Coordination and gait testing was limited by mental status. Arm and leg reflexes were within normal limits and symmetric. Peacock's sign was absent. Plantar responses were flexor. ELODIA RODRIGUEZ NP May 21, 2018 14:17
[2018-05-22 02:00] VITALS: BP 95/53; PULSE 75; RESP 18
[2018-05-22 08:18] VITALS: BP 98/56; PULSE 69; RESP 16
[2018-05-22] MEDS: CHLORPROMAZINE 25 MG INJ IM SCH ×2 (08:36→21:46)
[2018-05-22] MEDS: HEPARIN 5,000 UNIT/1 ML VIAL SC SCH ×2 (08:44→21:48)
[2018-05-22] MEDS: D5W-0.45 NACL + KCL 20 MEQ 1,000 ML IV SCH ×2 (09:10→11:40)
--- NOTE | 2018-05-22 12:48 | PN ---
Date/Time of Note Date/Time of Note DATE: 05/22/18 TIME: 12:46 Assessment/Plan VTE Prophylaxis Risk score (from Ns)>0 risk: 4 SCD applied (from Ns): Yes Pharmacological prophylaxis: heparin Lines/Catheters IV [facility]from [facility] Peripheral IV Urinary Cath still in place: Yes Reason Cath still needed: urinary retention Assessment/Plan Assessment/Plan 1.Depression, psychosis, anxiety, catatonia, on chlorpromazine follow up with psychiatry, supportive care, NG tube with tube feeding 2. DVT prophylaxis: heparin SQ Result Diagram: 05/20/18 0608 05/20/18 0608 Subjective 24 Hr Interval Summary Free Text/Dictation nonverbal Exam/Review of Systems Exam Vitals Vital Signs Date Temp Pulse Resp B/P (MAP) Pulse Ox O2 O2 Flow FiO2 Time Delivery Rate 05/22/18 97.7 69 16 98/56 (70) 98 Room Air 08:18 Intake and Output 05/21/18 05/21/18 05/22/18 1414:59 22:59 06:59 IntakeIntake Total 750 ml OutputOutput Total 600 ml BalanceBalance -600 ml 750 ml Constitutional: non-verbal Head: normocephalic, atraumatic Eyes: nl conjunctiva, EOMI, nl lids, PERRL ENMT: nl external ears & nose, nl lips & teeth, nl nasal mucosa & septum Neck: supple, non-tender Respiratory: clear to auscultation, normal air movement; No congested cough, No crackles/rales, No diminished breath sounds, No intercostal retraction, No labored breathing, No respirations, No tactile fremitus, No wheezing, No other Cardiovascular: regular rate and rhythm, nl pulses; No bruits, No diastolic murmur, No edema, No gallop, No irregular rhythm, No jugular venous distention (JVD), No murmurs/extra sounds, No rub, No systolic murmur, No S3, No S4, No other Gastrointestinal: soft, nl liver, spleen Musculoskeletal: nl extremities to inspection Extremities: normal pulses Neurological: unresponsive Medications Medication Current Medications Potassium Chloride/Dextrose/ Sod Cl 1,000 ml @ 75 mls/hr [id number] IV Last administered on 05/22/18at 11:40; Admin Dose 75 MLS/HR; Start 05/17/18 at 03:39 IV Flush (NS 3 ml) 3 ml PER PROTOCOL IV ; Start 05/17/18 at 04:00 Ondansetron HCl (Zofran Inj) 4 mg Q6H PRN IV NAUSEA/VOMITING; Start 05/17/18 at 04:00 Heparin Sodium (Porcine) (Heparin (5000 Units/1ml)) 5,000 unit Q12 SC Last administered on 05/22/18at 08:44; Admin Dose 5,000 UNIT; Start 05/17/18 at 09:00 Chlorpromazine (Thorazine) 15 mg BID IM Last administered on 05/22/18at 08:36; Admin Dose 15 MG; Start 05/19/18 at 21:00 Lorazepam (Ativan) 1 mg Q8H PRN IV catatonia Last administered on 05/21/18at 03:26; Admin Dose 1 MG; Start 05/20/18 at 01:00 MELANI GIBBS MD May 22, 2018 12:48
[2018-05-22 14:32] VITALS: BP 91/50; PULSE 90; RESP 14
--- NOTE | 2018-05-22 15:23 | CONS ---
Assessment/Plan Assessment/Plan Hospital Course 27 M c/ Hx of psychiatric ill, who is admitted for evaluation of ams.. The clinical picture suggests a decompensated psychiatric disorder.. 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 MRI brain is without evidence of acute intracranial pathology.. EEG was normal. TSH/ammonia/B12 wnl P: Await B1 levels Psychiatry follow up Continued medical management and supportive care per primary Will follow clinically Consultation Date/Type/Reason Admit Date/Time May 17, 2018 at 01:36 Type of Consult Neurology Reason for Consultation ams Requesting Provider: MELANI GIBBS MD Date/Time of Note DATE: 05/22/18 TIME: 15:23 24 HR Interval Summary Free Text/Dictation Continues acute care. No reported changes at this time. Subjective hx not possible: pt non-verbal Exam Vital Signs Vitals Vital Signs Date Temp Pulse Resp B/P (MAP) Pulse Ox O2 O2 Flow FiO2 Time Delivery Rate 05/22/18 98.3 90 14 91/50 (64) 97 Room Air 14:32 Intake and Output 05/21/18 05/21/18 05/22/18 1414:59 22:59 06:59 IntakeIntake Total 750 ml OutputOutput Total 600 ml BalanceBalance -600 ml 750 ml Exam PE: Gen Appearance: No Apparent Distress HEENT: Normocephalic Cardiovascular: Regular rate Abdomen: Soft Extremities: Dry NE: The patient was obtunded, nonverbal.. Cranial nerve examination was limited by mental status. Pupils were equal and reactive to light. There was no afferent pupillary defect. Funduscopic exa mination was limited. Face was grossly symmetric, w/ present corneal and cough reflexes. Tone was normal. Muscle bulk was normal. I did not see fasciculations. The patient withdrew to noxious stimulation x 4. Coordination and gait testing was limited by mental status. Arm and leg reflexes were within normal limits and symmetric. Peacock's sign was absent. Plantar responses were flexor. ELODIA RODRIGUEZ NP May 22, 2018 15:23
[2018-05-22] MEDS: LORAZEPAM 2 MG INJ IV PRN (17:48)
[2018-05-22 20:00] VITALS: BP 102/57; PULSE 98; RESP 19
[2018-05-23] MEDS: D5W-0.45 NACL + KCL 20 MEQ 1,000 ML IV SCH ×2 (00:09→15:19)
[2018-05-23 02:00] VITALS: BP 99/57; PULSE 90; RESP 20
[2018-05-23 07:57] VITALS: BP 95/57; PULSE 78; RESP 17
[2018-05-23] MEDS: HEPARIN 5,000 UNIT/1 ML VIAL SC SCH ×2 (08:35→20:15)
[2018-05-23] MEDS: CHLORPROMAZINE 25 MG INJ IM SCH ×2 (08:35→20:09)
[2018-05-23 13:56] VITALS: BP 98/62; PULSE 102; RESP 18
--- NOTE | 2018-05-23 15:18 | CONS ---
Assessment/Plan Assessment/Plan Hospital Course 27 M c/ Hx of psychiatric illness, who is admitted for evaluation of ams.. The clinical picture suggests a decompensated psychiatric disorder.. 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 MRI brain is without evidence of acute intracranial pathology.. EEG was normal. TSH/ammonia/B12 wnl P: Await B1 levels Psychiatry follow up Continued medical management and supportive care per primary Will follow clinically Consultation Date/Type/Reason Admit Date/Time May 17, 2018 at 01:36 Type of Consult Neurology Reason for Consultation ams Requesting Provider: MELANI GIBBS MD Date/Time of Note DATE: 05/23/18 TIME: 15:18 24 HR Interval Summary Free Text/Dictation Continues acute care. Pt remains unable to contribute at this time. Subjective hx not possible: pt non-verbal Exam Vital Signs Vitals Vital Signs Date Temp Pulse Resp B/P (MAP) Pulse Ox O2 O2 Flow FiO2 Time Delivery Rate 05/23/18 98.1 102 18 98/62 (74) 98 Room Air 13:56 Intake and Output 05/22/18 05/22/18 05/23/18 1515:00 23:00 07:00 IntakeIntake Total 250 ml 0 ml 1400 ml OutputOutput Total 650 ml BalanceBalance 250 ml -650 ml 1400 ml Exam PE: Gen Appearance: No Apparent Distress HEENT: Normocephalic Cardiovascular: Regular rate Abdomen: Soft Extremities: Dry NE: The patient was obtunded, nonverbal.. Cranial nerve examination was limited by mental status. Pupils were equal and reactive to light. There was no afferent pupillary defect. Funduscopic examination was limited. Face was grossly symmetric, w/ present corneal and cough reflexes. Tone was normal. Muscle bulk was normal. I did not see fasciculations. The patient withdrew to noxious stimulation x 4. Coordination and gait testing was limited by mental status. Arm and leg reflexes were within normal limits and symmetric. Peacock's sign was absent. Plantar responses were flexor. ELODIA RODRIGUEZ NP May 23, 2018 15:18
--- NOTE | 2018-05-23 15:36 | PN ---
Date/Time of Note Date/Time of Note DATE: 05/23/18 TIME: 15:34 Assessment/Plan VTE Prophylaxis Risk score (from Nsg)>0 risk: 2 SCD applied (from Nsg): Yes Pharmacological prophylaxis: heparin Lines/Catheters IV Catheter Type (from Nrsg): Peripheral IV Urinary Cath still in place: Yes Reason Cath still needed: other (indicate) Assessment/Plan Assessment/Plan 1.Depression, psychosis, anxiety, catatonia, on chlorpromazine follow up with psychiatry, supportive care, add zyprexa 2. DVT prophylaxis: heparin SQ Result Diagram: 05/20/18 0608 05/23/18 0549 Results 24hrs Laboratory Tests Test 05/23/18 05:49 Sodium Level 141 Potassium Level 4.1 Chloride Level 104 Carbon Dioxide Level 25 Anion Gap 12 Blood Urea Nitrogen 11 Creatinine 0.74 Est Glomerular Filtrat Rate mL/min > 60 Glucose Level 91 Calcium Level 9.8 Magnesium Level 2.3 Subjective 24 Hr Interval Summary Free Text/Dictation not responding Exam/Review of Systems Exam Vitals Vital Signs Date Temp Pulse Resp B/P (MAP) Pulse Ox O2 O2 Flow FiO2 Time Delivery Rate 05/23/18 98.1 102 18 98/62 (74) 98 Room Air 13:56 Intake and Output 05/22/18 05/22/18 05/23/18 1515:00 23:00 07:00 IntakeIntake Total 250 ml 0 ml 1400 ml OutputOutput Total 650 ml BalanceBalance 250 ml -650 ml 1400 ml Constitutional: non-verbal Head: normocephalic, atraumatic Eyes: nl conjunctiva, EOMI, nl lids, nl sclera, PERRL ENMT: nl external ears & nose, nl lips & teeth, nl nasal mucosa & septum Respiratory: clear to auscultation, normal air movement; No congested cough, No crackles/rales, No diminished breath sounds, No intercostal retraction, No labored breathing, No respirations, No tactile fremitus, No wheezing, No other Cardiovascular: regular rate and rhythm, nl pulses; No bruits, No diastolic murmur, No edema, No gallop, No irregular rhythm, No jugular venous distention (JVD), No murmurs/extra sounds, No rub, No systolic murmur, No S3, No S4, No other Gastrointestinal: soft, nl liver, spleen Musculoskeletal: nl extremities to inspection Neurological: unresponsive Results Results 24hrs Laboratory Tests Test 05/23/18 05:49 Sodium Level 141 Potassium Level 4.1 Chloride Level 104 Carbon Dioxide Level 25 Anion Gap 12 Blood Urea Nitrogen 11 Creatinine 0.74 Est Glomerular Filtrat Rate mL/min > 60 Glucose Level 91 Calcium Level 9.8 Magnesium Level 2.3 Medications Medication Current Medications Potassium Chloride/Dextrose/ Sod Cl 1,000 ml @ 75 mls/hr [id number] IV Last administered on 05/23/18at 15:19; Admin Dose 75 MLS/HR; Start 05/17/18 at 03:39 IV Flush (NS 3 ml) 3 ml PER PROTOCOL IV ; Start 05/17/18 at 04:00 Ondansetron HCl (Zofran Inj) 4 mg Q6H PRN IV NAUSEA/VOMITING; Start 05/17/18 at 04:00 Heparin Sodium (Porcine) (Heparin (5000 Units/1ml)) 5,000 unit Q12 SC Last administered on 05/23/18at 08:35; Admin Dose 5,000 UNIT; Start 05/17/18 at 09:00 Chlorpromazine (Thorazine) 15 mg BID IM Last administered on 05/23/18at 08:35; Admin Dose 15 MG; Start 05/19/18 at 21:00 Lorazepam (Ativan) 1 mg Q8H PRN IV catatonia Last administered on 05/22/18at 17:48; Admin Dose 1 MG; Start 05/20/18 at 01:00 MELANI GIBBS MD May 23, 2018 15:36
[2018-05-23 19:54] VITALS: BP 95/56; PULSE 97; RESP 17
[2018-05-23] MEDS: OLANZAPINE 10 MG VIAL IM SCH (20:09)
[2018-05-24] MEDS: D5W-0.45 NACL + KCL 20 MEQ 1,000 ML IV SCH ×2 (05:30→20:23)
[2018-05-24 07:29] VITALS: BP 104/59; PULSE 89; RESP 16
[2018-05-24] MEDS: CHLORPROMAZINE 25 MG INJ IM SCH ×2 (08:35→20:23)
[2018-05-24] MEDS: HEPARIN 5,000 UNIT/1 ML VIAL SC SCH ×2 (08:38→20:25)
[2018-05-24] MEDS: OLANZAPINE 10 MG VIAL IM SCH (09:46)
[2018-05-24 14:08] VITALS: BP 106/61; PULSE 101; RESP 16
--- NOTE | 2018-05-24 14:53 | PN ---
Date/Time of Note Date/Time of Note DATE: 05/24/18 TIME: 14:51 Assessment/Plan VTE Prophylaxis Risk score (from Ns)>0 risk: 4 SCD applied (from Ns): Yes Pharmacological prophylaxis: heparin Lines/Catheters IV Catheter Type (from Nrs): Peripheral IV Urinary Cath still in place: Yes Reason Cath still needed: other (indicate) Assessment/Plan Assessment/Plan 1.Depression, psychosis, anxiety, catatonia, on chlorpromazine follow up with psychiatry, supportive care, add zyprexa, talked with the aunt about G-tube for feeding, she will talk to the family 2. DVT prophylaxis: heparin SQ Result Diagram: 05/20/18 0608 05/23/18 0549 Subjective 24 Hr Interval Summary Free Text/Dictation unresponsive Exam/Review of Systems Exam Vitals Vital Signs Date Temp Pulse Resp B/P (MAP) Pulse Ox O2 O2 Flow FiO2 Time Delivery Rate 05/24/18 98.9 101 16 106/61 100 Room Air 14:08 (76) Intake and Output 05/23/18 05/23/18 05/24/18 1515:00 23:00 07:00 IntakeIntake Total 750 ml 850 ml OutputOutput Total 1950 ml 500 ml BalanceBalance -1200 ml 350 ml Constitutional: non-verbal Head: normocephalic, atraumatic Eyes: nl conjunctiva, EOMI, nl lids, PERRL ENMT: nl external ears & nose, nl lips & teeth, nl nasal mucosa & septum Neck: supple, non-tender Respiratory: clear to auscultation, normal air movement Cardiovascular: regular rate and rhythm, nl pulses; No bruits, No diastolic murmur, No edema, No gallop, No irregular rhythm, No jugular venous distention (JVD), No murmurs/extra sounds, No rub, No systolic murmur, No S3, No S4, No other Gastrointestinal: soft, nl liver, spleen; No ascites, No bowel sounds, No distended, No firm, No hepatomegaly, No mass, No rebound or guarding, No splenomegaly, No surgical scars, No tender, No other Musculoskeletal: nl extremities to inspection Extremities: normal pulses; No calf tenderness, No cyanosis, No clubbing, No edema, No pitting pedal edema, No palpable cord, No tenderness, No other Neurological: unresponsive Medications Medication Current Medications Potassium Chloride/Dextrose/ Sod Cl 1,000 ml @ 75 mls/hr [id number] IV Last administered on 05/24/18 05:30; Admin Dose 75 MLS/HR; Start 05/17/18 at 03:39 IV Flush (NS 3 ml) 3 ml PER PROTOCOL IV ; Start 05/17/18 at 04:00 Ondansetron HCl (Zofran Inj) 4 mg Q6H PRN IV NAUSEA/VOMITING; Start 05/17/18 at 04:00 Heparin Sodium (Porcine) (Heparin (5000 Units/1ml)) 5,000 unit Q12 SC Last administered on 05/24/18at 08:38; Admin Dose 5,000 UNIT; Start 05/17/18 at 09:00 Chlorpromazine (Thorazine) 15 mg BID IM Last administered on 05/24/18 08:35; Admin Dose 15 MG; Start 05/19/18 at 21:00 Lorazepam (Ativan) 1 mg Q8H PRN IV catatonia Last administered on 05/22/18at 17:48; Admin Dose 1 MG; Start 05/20/18 at 01:00 Olanzapine (Zyprexa) 2.5 mg BID IM Last administered on 05/24/18at 09:46; Admin Dose 2.5 MG; Start 05/23/18 at 21:00 MELANI GIBBS MD May 24, 2018 14:53
--- NOTE | 2018-05-24 15:15 | CONS ---
Assessment/Plan Assessment/Plan Hospital Course 27 M c/ Hx of psychiatric illness, who is admitted for evaluation of ams.. The clinical picture suggests a decompensated psychiatric disorder. 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 MRI brain is without evidence of acute intracranial pathology.. EEG was reassuringly without epileptiform activity. TSH/ammonia/B12 wnl P: Psychiatry follow up Medical management and supportive care per primary Will follow clinically Consultation Date/Type/Reason Admit Date/Time May 17, 2018 at 01:36 Type of Consult Neurology Reason for Consultation ams Requesting Provider: MELANI GIBBS MD Date/Time of Note DATE: 05/24/18 TIME: 15:15 24 HR Interval Summary Free Text/Dictation Continues acute care. Subjective hx not possible: pt non-verbal Exam Vital Signs Vitals Vital Signs Date Temp Pulse Resp B/P (MAP) Pulse Ox O2 O2 Flow FiO2 Time Delivery Rate 05/24/18 98.9 101 16 106/61 100 Room Air 14:08 (76) Intake and Output 05/23/18 05/23/18 05/24/18 1515:00 23:00 07:00 IntakeIntake Total 750 ml 850 ml OutputOutput Total 1950 ml 500 ml BalanceBalance -1200 ml 350 ml Exam PE: Gen Appearance: No Apparent Distress HEENT: Normocephalic Cardiovascular: Regular rate Abdomen: Soft Extremities: Dry NE: The patient was obtunded and nonverbal.. Cranial nerve examination was limited by mental status. Pupils were equal and reactive to light. There was no afferent pupillary defect. Funduscopic examination was limited. Face was grossly symmetric, w/ present corneal and cough reflexes. Tone was normal. Muscle bulk was normal. I did not see fasciculations. The patient withdrew to noxious stimulation x 4. Coordination and gait testing was limited by mental status. Arm and leg reflexes were within normal limits and symmetric. Peacock's sign was absent. Plantar responses were flexor. ELODIA RODRIGUEZ NP May 24, 2018 15:15 FIDEL CHAVEZ May 24, 2018 16:41
[2018-05-24] MEDS ORDERED: CEFAZOLIN 2 GM/50 ML (PMX) 50 ML IVPB ONE (15:30)
--- NOTE | 2018-05-24 15:41 | CONS ---
Assessment/Plan Assessment/Plan Hospital Course (Demo Recall) Summary Assessment and Plan: Assessment: Dysphagia 2/2 underlying psychosis catatonia Depression Psychosis Anxiety Plan: Family agrees to Peg- which we will now put on hold per Dr. Mcmillan and neurology Endoscopy - risks/benefits/alternatives/indications of procedure and sedation/anesthesia discussed with patient who states understanding and gives informed consent to proceed. Patient seen in collaboration with Dr. Davies CC: LORENZO DAVIES ; Consultation Date/Type/Reason Admit Date/Time May 17, 2018 at 01:36 Date of Consultation: May 24, 2018 Type of Consult GI Reason for Consultation Dysphagia secondary to underlying psychosis and catatonia Date/Time of Note DATE: 05/24/18 TIME: 15:28 Hx of Present Illness This is a 27-year-old male with past psychiatric history who was admitted for catatonia. Pt is unresponsive, NGT placement was attempted but unable to be placed. GI has been consulted for PEG placement. Currently Pt aunt is at bedside I reviewed PEG placement including risk of procedure and sedation she verbalized understanding. Additionally I spoke to the patient mother who agrees to move forward with PEG placement. Subjective hx not possible: pt non-verbal Past Medical History Medical History: other (See HPI) Home Meds Active Scripts Clotrimazole* (Clotrimazole* AF) 1% - 30 Gm Cream.gm., 1 APPLIC TOP BID for 7 Days, TUB Prov:NANCY HOGAN PA-C 05/03/16 Reported Medications Escitalopram Oxalate* (Escitalopram Oxalate*) 5 Mg Tablet, 5 MG PO DAILY, #30 TAB 05/17/18 Clonazepam* (Clonazepam*) 1 Mg Tablet, 1 MG PO Q8H PRN for ANXIETY, TAB 05/17/18 Olanzapine* (Olanzapine*) 15 Mg Tablet, 15 MG PO DAILY, TAB 05/17/18 Benztropine Mesylate* (Benztropine Mesylate*) 1 Mg Tablet, 1 MG PO BID, TAB 05/17/18 Medications Current Medications Potassium Chloride/Dextrose/ Sod Cl 1,000 ml @ 75 mls/hr [id number] IV Last administered on 05/24/18at 05:30; Admin Dose 75 MLS/HR; Start 05/17/18 at 03:39 IV Flush (NS 3 ml) 3 ml PER PROTOCOL IV ; Start 05/17/18 at 04:00 Ondansetron HCl (Zofran Inj) 4 mg Q6H PRN IV NAUSEA/VOMITING; Start 05/17/18 at 04:00 Heparin Sodium (Porcine) (Heparin (5000 Units/1ml)) 5,000 unit Q12 SC Last administered on 05/24/18at 08:38; Admin Dose 5,000 UNIT; Start 05/17/18 at 09:00 Chlorpromazine (Thorazine) 15 mg BID IM Last administered on 05/24/18at 08:35; Admin Dose 15 MG; Start 05/19/18 at 21:00 Lorazepam (Ativan) 1 mg Q8H PRN IV catatonia Last administered on 05/22/18at 17:48; Admin Dose 1 MG; Start 05/20/18 at 01:00 Olanzapine (Zyprexa) 2.5 mg BID IM Last administered on 05/24/18at 09:46; Admin Dose 2.5 MG; Start 05/23/18 at 21:00 Cefazolin Sodium/ Dextrose 50 ml @ 100 mls/hr ON JOANNA TO GI LAB ONCE IVPB ; Start 05/24/18 at 15:30; Stop 05/24/18 at 15:59 Allergies: Coded Allergies: No Known Allergy (Unverified , 05/17/18) Past Surgical History Past Surgical Hx: no surgical history Social History Alcohol Use: none Smoking Status: Never smoker Drug Use: none Exam/Review of Systems Exam Vitals Vital Signs Date Temp Pulse Resp B/P (MAP) Pulse Ox O2 O2 Flow FiO2 Time Delivery Rate 05/24/18 98.9 101 16 106/61 100 Room Air 14:08 (76) Intake and Output 05/23/18 05/23/18 05/24/18 1515:00 23:00 07:00 IntakeIntake Total 750 ml 850 ml OutputOutput Total 1950 ml 500 ml BalanceBalance -1200 ml 350 ml Exam PHYSICAL EXAMINATION: GENERAL: Well developed, unresponsive SKIN: No lesions EYES: Pupils equal reactive to light. EARS/NOSE AND THROAT: Ears normal, nose normal, oropharynx normal NECK: Supple, no masses CHEST: Inspection within normal limits. CARDIOVASCULAR: Heart: Regular rate and rhythm RESPIRATORY: Lungs clear to auscultation GASTROINTESTINAL AND LIVER: Abdomen: Soft, non tenderness, non-distended, no hernias, no masses, no organomegaly, no ascites, no guarding, no rebound tenderness, normoactive bowel sounds. Rectal: Deferred. GENITOURINARY: Male genitalia within normal limits. Results Result Diagram: 05/20/18 0608 05/23/18 0549 Medications Medication Current Medications Potassium Chloride/Dextrose/ Sod Cl 1,000 ml @ 75 mls/hr [id number] IV Last administered on 05/24/18at 05:30; Admin Dose 75 MLS/HR; Start 05/17/18 at 03:39 IV Flush (NS 3 ml) 3 ml PER PROTOCOL IV ; Start 05/17/18 at 04:00 Ondansetron HCl (Zofran Inj) 4 mg Q6H PRN IV NAUSEA/VOMITING; Start 05/17/18 at 04:00 Heparin Sodium (Porcine) (Heparin (5000 Units/1ml)) 5,000 unit Q12 SC Last administered on 05/24/18at 08:38; Admin Dose 5,000 UNIT; Start 05/17/18 at 09:00 Chlorpromazine (Thorazine) 15 mg BID IM Last administered on 05/24/18at 08:35; Admin Dose 15 MG; Start 05/19/18 at 21:00 Lorazepam (Ativan) 1 mg Q8H PRN IV catatonia Last administered on 05/22/18at 17:48; Admin Dose 1 MG; Start 05/20/18 at 01:00 Olanzapine (Zyprexa) 2.5 mg BID IM Last administered on 05/24/18at 09:46; Admin Dose 2.5 MG; Start 05/23/18 at 21:00 Cefazolin Sodium/ Dextrose 50 ml @ 100 mls/hr ON JOANNA TO GI LAB ONCE IVPB ; Start 05/24/18 at 15:30; Stop 05/24/18 at 15:59 CARLOS A MAX May 24, 2018 15:38
[2018-05-24] MEDS ORDERED: OLANZAPINE 10 MG VIAL IM PRN (16:30)
[2018-05-24] MEDS: LORAZEPAM 2 MG INJ IV SCH (17:39)
[2018-05-24 20:45] VITALS: BP 98/58; PULSE 112; RESP 18
[2018-05-25] MEDS: LORAZEPAM 2 MG INJ IV SCH ×3 (01:07→16:13)
[2018-05-25 02:50] VITALS: BP 96/58; PULSE 88; RESP 18
[2018-05-25 08:00] VITALS: BP 107/57; PULSE 78; RESP 18
[2018-05-25] MEDS: D5W-0.45 NACL + KCL 20 MEQ 1,000 ML IV SCH ×2 (09:04→23:07)
[2018-05-25] MEDS: HEPARIN 5,000 UNIT/1 ML VIAL SC SCH ×2 (09:06→20:27)
[2018-05-25] MEDS: CHLORPROMAZINE 25 MG INJ IM SCH ×2 (09:07→20:23)
--- NOTE | 2018-05-25 11:38 | PN ---
Date/Time of Note Date/Time of Note DATE: 05/25/18 TIME: 11:20 Assessment/Plan VTE Prophylaxis Risk score (from Nsg)>0 risk: 4 SCD applied (from Nsg): Yes Pharmacological prophylaxis: heparin Lines/Catheters IV Catheter Type (from Nrsg): Peripheral IV Urinary Cath still in place: Yes Reason Cath still needed: skin wounds contaminated by urine Assessment/Plan Assessment/Plan Assessment: Dysphagia 2/2 underlying psychosis catatonia Depression Psychosis Anxiety Plan: Family agrees to Peg- which we will now put on hold per Dr. Mcmillan and neurology GI will sign off at this time and will be available to reconsult upon request . Patient seen in collaboration with Dr. Khan Subjective: Patient is resting in bed comfortably. Arousable. No c/o abd pain, nausea or v omiting. With the PEG placement on hold GI will sign off and will be available to reconsult upon request. PHYSICAL EXAMINATION: GENERAL: Well developed, unresponsive SKIN: No lesions EYES: Pupils equal reactive to light. EARS/NOSE AND THROAT: Ears normal, nose normal, oropharynx normal NECK: Supple, no masses CHEST: Inspection within normal limits. CARDIOVASCULAR: Heart: Regular rate and rhythm RESPIRATORY: Lungs clear to auscultation GASTROINTESTINAL AND LIVER: Abdomen: Soft, non tenderness, non-distended, no hernias, no masses, no organomegaly, no ascites, no guarding, no rebound tenderness, normoactive bowel sounds. Rectal: Deferred. GENITOURINARY: Male genitalia within normal limits. Result Diagram: 05/25/18 0742 Results 24hrs Laboratory Tests Test 05/25/18 07:42 Sodium Level 140 Potassium Level 4.3 Chloride Level 101 Carbon Dioxide Level 28 Anion Gap 11 Blood Urea Nitrogen 11 Creatinine 0.97 Est Glomerular Filtrat Rate mL/min > 60 Glucose Level 101 Calcium Level 10.2 Exam/Review of Systems Exam Vitals Vital Signs Date Temp Pulse Resp B/P (MAP) Pulse Ox O2 O2 Flow FiO2 Time Delivery Rate 05/25/18 98.7 78 18 107/57 98 08:00 (74) 05/24/18 Room Air 14:08 Intake and Output 05/24/18 05/24/18 05/25/18 1515:00 23:00 07:00 IntakeIntake Total 1000 ml 700 ml OutputOutput Total 1500 ml BalanceBalance -500 ml 700 ml Results Results 24hrs Laboratory Tests Test 05/25/18 07:42 Sodium Level 140 Potassium Level 4.3 Chloride Level 101 Carbon Dioxide Level 28 Anion Gap 11 Blood Urea Nitrogen 11 Creatinine 0.97 Est Glomerular Filtrat Rate mL/min > 60 Glucose Level 101 Calcium Level 10.2 Medications Medication Current Medications Potassium Chloride/Dextrose/ Sod Cl 1,000 ml @ 75 mls/hr [id number] IV Last a dministered on 05/25/18 09:04; Admin Dose 75 MLS/HR; Start 05/17/18 at 03:39 IV Flush (NS 3 ml) 3 ml PER PROTOCOL IV ; Start 05/17/18 at 04:00 Ondansetron HCl (Zofran Inj) 4 mg Q6H PRN IV NAUSEA/VOMITING; Start 05/17/18 at 04:00 Heparin Sodium (Porcine) (Heparin (5000 Units/1ml)) 5,000 unit Q12 SC Last administered on 05/25/18at 09:06; Admin Dose 5,000 UNIT; Start 05/17/18 at 09:00 Lorazepam (Ativan) 1 mg Q8H PRN IV catatonia Last administered on 05/22/18 17:48; Admin Dose 1 MG; Start 05/20/18 at 01:00 Olanzapine (Zyprexa) 2.5 mg BID PRN IM agitation; Start 05/24/18 at 16:30 Chlorpromazine (Thorazine) 15 mg BID IM Last administered on 05/25/18 09:07; Admin Dose 15 MG; Start 05/24/18 at 21:00 Lorazepam (Ativan) 1 mg Q8H IV Last administered on 05/25/18at 09:08; Admin Dose 1 MG; Start 05/24/18 at 16:30 ROSA PATTERSON NP May 25, 2018 11:38
[2018-05-25 14:00] VITALS: BP 96/52; PULSE 100; RESP 18
--- NOTE | 2018-05-25 14:03 | PN ---
Date/Time of Note Date/Time of Note DATE: 05/25/18 TIME: 13:59 Assessment/Plan VTE Prophylaxis Risk score (from Nsg)>0 risk: 4 SCD applied (from Nsg): Yes Pharmacological prophylaxis: heparin Lines/Catheters IV Catheter Type (from Nrsg): Peripheral IV Urinary Cath still in place: Yes Reason Cath still needed: other (indicate) Assessment/Plan Assessment/Plan 1. Catatonia, on ativan, psychiatry follow up if no response over the weekend, supportive care 2. Depression, psychosis, anxiety, on chlorpromazine, follow up with psychiatry 3. DVT prophylaxis: heparin SQ Result Diagram: 05/25/18 0742 Results 24hrs Laboratory Tests Test 05/25/18 07:42 Sodium Level 140 Potassium Level 4.3 Chloride Level 101 Carbon Dioxide Level 28 Anion Gap 11 Blood Urea Nitrogen 11 Creatinine 0.97 Est Glomerular Filtrat Rate mL/min > 60 Glucose Level 101 Calcium Level 10.2 Subjective 24 Hr Interval Summary Free Text/Dictation unresponsive Exam/Review of Systems Exam Vitals Vital Signs Date Temp Pulse Resp B/P (MAP) Pulse Ox O2 O2 Flow FiO2 Time Delivery Rate 05/25/18 98.7 78 18 107/57 98 08:00 (74) 05/24/18 Room Air 14:08 Intake and Output 05/24/18 05/24/18 05/25/18 1414:59 22:59 06:59 IntakeIntake Total 1000 ml 700 ml OutputOutput Total 1500 ml BalanceBalance -500 ml 700 ml Constitutional: non-verbal Head: normocephalic, atraumatic Eyes: nl conjunctiva, EOMI, nl lids, PERRL ENMT: nl external ears & nose, nl lips & teeth, nl nasal mucosa & septum Neck: supple, non-tender Respiratory: clear to auscultation, normal air movement; No congested cough, No crackles/rales, No diminished breath sounds, No intercostal retraction, No labored breathing, No respirations, No tactile fremitus, No wheezing, No other Cardiovascular: regular rate and rhythm, nl pulses; No bruits, No diastolic murmur, No edema, No gallop, No irregular rhythm, No jugular venous distention (JVD), No murmurs/extra sounds, No rub, No systolic murmur, No S3, No S4, No other Gastrointestinal: soft, nl liver, spleen Musculoskeletal: nl extremities to inspection Extremities: normal pulses; No calf tenderness, No cyanosis, No clubbing, No edema, No pitting pedal edema, No palpable cord, No tenderness, No other Neurological: unresponsive Results Results 24hrs Laboratory Tests Test 05/25/18 07:42 Sodium Level 140 Potassium Level 4.3 Chloride Level 101 Carbon Dioxide Level 28 Anion Gap 11 Blood Urea Nitrogen 11 Creatinine 0.97 Est Glomerular Filtrat Rate mL/min > 60 Glucose Level 101 Calcium Level 10.2 Medications Medication Current Medications Potassium Chloride/Dextrose/ Sod Cl 1,000 ml @ 75 mls/hr [id number] IV Last admi nistered on 05/25/18 09:04; Admin Dose 75 MLS/HR; Start 05/17/18 at 03:39 IV Flush (NS 3 ml) 3 ml PER PROTOCOL IV ; Start 05/17/18 at 04:00 Ondansetron HCl (Zofran Inj) 4 mg Q6H PRN IV NAUSEA/VOMITING; Start 05/17/18 at 04:00 Heparin Sodium (Porcine) (Heparin (5000 Units/1ml)) 5,000 unit Q12 SC Last administered on 05/25/18 09:06; Admin Dose 5,000 UNIT; Start 05/17/18 at 09:00 Lorazepam (Ativan) 1 mg Q8H PRN IV catatonia Last administered on 05/22/18 17:48; Admin Dose 1 MG; Start 05/20/18 at 01:00 Olanzapine (Zyprexa) 2.5 mg BID PRN IM agitation; Start 05/24/18 at 16:30 Chlorpromazine (Thorazine) 15 mg BID IM Last administered on 05/25/18 09:07; Admin Dose 15 MG; Start 05/24/18 at 21:00 Lorazepam (Ativan) 1 mg Q8H IV Last administered on 05/25/18 09:08; Admin Dose 1 MG; Start 05/24/18 at 16:30 MELANI GIBBS MD May 25, 2018 14:03
--- NOTE | 2018-05-25 15:06 | CONS ---
Assessment/Plan Assessment/Plan Hospital Course 27 M c/ Hx of psychiatric illness, who is admitted for evaluation of ams.. The clinical picture suggests a decompensated psychiatric disorder. An acute PRODUCE SORTER process is less likely, though, not yet excluded.. MRI brain is without evidence of acute intracranial pathology.. EEG was reassuringly without epileptiform activity. TSH/ammonia/B12 wnl P: Ok to defer neuroimaging for now Psychiatry follow up Medical management and supportive care per primary Will follow clinically Consultation Date/Type/Reason Admit Date/Time May 17, 2018 at 01:36 Type of Consult Neurology Reason for Consultation ams Requesting Provider: MELANI GIBBS MD Date/Time of Note DATE: 05/25/18 TIME: 15:06 24 HR Interval Summary Free Text/Dictation Continues acute care. Pt reportedly is without changes. Subjective hx not possible: pt non-verbal Exam Vital Signs Vitals Vital Signs Date Temp Pulse Resp B/P (MAP) Pulse Ox O2 O2 Flow FiO2 Time Delivery Rate 05/25/18 98.5 100 18 96/52 (67) 97 14:00 05/24/18 Room Air 14:08 Intake and Output 05/24/18 05/24/18 05/25/18 1414:59 22:59 06:59 IntakeIntake Total 1000 ml 700 ml OutputOutput Total 1500 ml BalanceBalance -500 ml 700 ml Exam PE: Gen Appearance: No Apparent Distress HEENT: Normocephalic Cardiovascular: Regular rate Abdomen: Soft Extremities: Dry NE: The patient was obtunded and nonverbal.. Cranial nerve examination was limited by mental status. Pupils were equal and reactive to light. There was no afferent pupillary defect. Funduscopic examination was limited. Face was grossly symmetric, w/ present corneal and cough reflexes. Tone was normal. Muscle bulk was normal. I did not see fasciculations. The patient withdrew to noxious stimulation x 4. Coordination and gait testing was limited by mental status. Arm and leg reflexes were within normal limits and symmetric. Peacock's sign was absent. Plantar responses were flexor. ELODIA RODRIGUEZ NP May 25, 2018 15:06
--- NOTE | 2018-05-25 17:36 | PSY ---
Date/Time of Note Date/Time of Note DATE: 05/25/18 TIME: 20:23 Psychiatric Subjective Eval Consent Pt consented to telemedicine: Yes Subjective Evaluation Patient location: inpatient Chief Complaint: bib ra from home for aloc, hx of psych dx, depression, altered, History of present illness HPI: 27 yo male seen by this MD a week ago with ho depression and psychosis, is catatonic, brought into hospital inpatient for catatonia, unresponsive (is responsive to pain) not eating just keeps eyes closed. Per previous notes, pt has been catatonic since 05/15. This has happened to pt in past, including one month prior to last week. This information was obtained from pt's sister. Per last note, pt was having AH before catatonia set in. Today MD spoke with charge nurse who reports pt has been stable, not eating or getting out of bed. Has a colon catheter and is getting iv fluid with dextrose. Per nurse, he does not respond to voice but does clearly respond to pain and very vigorously responded to attempts to place NG tube, which pt fully resisted. They also report that when pt not being monitored, he has been noted to move. MD also observed pt move when video was first turned on. Per chart and nurse, pt has normal imaging, normal labs. HAs not responded at all to antipsychotics or iv lorazepam. Past Psych Hx: + ho psych admits, Home Meds: chlorpromazine 15mg im bid, lorazepam 1mg tid iv All: nkda PMhx: denies MSE: pt disheveled, eyes closed, looks lie he is sleeping but does not respond to voice Imp: 27 yo male, catatonic gravely disabled, very severe since pt unable to communicate in current state, recommend ethics consult to discuss ECT with family recommend electroconvulsive therapy as next treatment option as pt has not resp onded to lorazepam or antipsychotics; recommend safe taper of both lorazepam and chlorpromazine 5150 psych admit For moderate agitation Zyprexa 5mg po prn For severe agitation or catatonia chlorpromazine 25mg im prn 1:1 sitter while on medicine d/w charge nurse who will also give the attending physician the psych consult physician's phone number to discuss plan as the attending medical physician is not on the unit Medical history Problems Medical Problems: (1) Balanitis Status: Acute (2) Balanitis Status: Acute (3) Catatonia Status: Acute (4) Hypokalemia Status: Acute Allergies: Coded Allergies: No Known Allergy (Unverified , 05/17/18) Psychiatric Objective Eval Mental Status Examination: Laboratory Results Laboratory Tests Test 05/25/18 07:42 Sodium Level 140 mmol/L Potassium Level 4.3 mmol/L Chloride Level 101 mmol/L Carbon Dioxide Level 28 mmol/L Anion Gap 11 Blood Urea Nitrogen 11 mg/dl Creatinine 0.97 mg/dl Est Glomerular Filtrat Rate mL/min > 60 mL/min Glucose Level 101 mg/dl Calcium Level 10.2 mg/dl Assessment and Plan Recommendation/Plan Multiple antipsychotics: No Discharge Disposition: Psychiatric inpatient Legal Status: Place involuntary hold CHIQUISBRENDAN CHAN May 25, 2018 17:35
[2018-05-25 20:00] VITALS: BP 102/58; PULSE 108; RESP 20
[2018-05-26] MEDS: LORAZEPAM 2 MG INJ IV SCH ×3 (00:04→16:30)
[2018-05-26 02:11] VITALS: BP 91/54; PULSE 86; RESP 16
[2018-05-26 07:56] VITALS: BP 93/51; PULSE 95; RESP 17
[2018-05-26] MEDS: HEPARIN 5,000 UNIT/1 ML VIAL SC SCH ×2 (08:16→20:21)
[2018-05-26] MEDS: CHLORPROMAZINE 25 MG INJ IM SCH ×2 (08:18→20:21)
[2018-05-26] MEDS: D5W-0.45 NACL + KCL 20 MEQ 1,000 ML IV SCH (12:54)
[2018-05-26 14:32] VITALS: BP 100/52; PULSE 130; RESP 19
--- NOTE | 2018-05-26 15:02 | PN ---
Date/Time of Note Date/Time of Note DATE: 05/26/18 TIME: 14:59 Assessment/Plan VTE Prophylaxis Risk score (from Nsg)>0 risk: 4 SCD applied (from Ns): Yes Pharmacological prophylaxis: heparin Lines/Catheters IV Catheter Type (from Nrsg): Peripheral IV Urinary Cath still in place: Yes Reason Cath still needed: other (indicate) (not needed) Assessment/Plan Assessment/Plan 1. Catatonia, on ativan. Now awake but still gravely disabled, plan for transfer to psych facility. 2. Depression, psychosis, anxiety, on chlorpromazine, follow up with psychiatry 3. DVT prophylaxis: heparin SQ Result Diagram: 05/25/18 0742 Subjective 24 Hr Interval Summary Free Text/Dictation The patient is awake and alert when I saw him this afternoon. Ate all his lunch and is reading the Bible ([place]). Oriented to name. Disoriented to location (won't even guess), year, month, day, situation. Does not remember why he is in the hospital or for how long. Refused to get out of bed and try ambulating, saying he feels too weak. Exam/Review of Systems Exam Vitals Vital Signs Date Temp Pulse Resp B/P (MAP) Pulse Ox O2 O2 Flow FiO2 Time Delivery Rate 05/26/18 98.1 130 19 100/52 97 14:32 (68) 05/24/18 Room Air 14:08 Intake and Output 05/25/18 05/25/18 05/26/18 1515:00 23:00 07:00 IntakeIntake Total 151 ml 825 ml OutputOutput Total 1400 ml BalanceBalance 151 ml -575 ml Exam Constitutional: Well developed man lying in bed in no distress. Head: normocephalic, atraumatic ENMT: nl external ears & nose, nl lips & teeth, nl nasal mucosa & septum Neck: supple, non-tender Respiratory: Breathing comfortably on room air. Cardiovascular: regular rate and rhythm Gastrointestinal: soft, nontender. Musculoskeletal: nl extremities to inspection Extremities: normal pulses; Medications Medication Current Medications Potassium Chloride/Dextrose/ Sod Cl 1,000 ml @ 75 mls/hr [id number] IV Last administered on 05/26/18at 12:54; Admin Dose 75 MLS/HR; Start 05/17/18 at 03:39 IV Flush (NS 3 ml) 3 ml PER PROTOCOL IV ; Start 05/17/18 at 04:00 Ondansetron HCl (Zofran Inj) 4 mg Q6H PRN IV NAUSEA/VOMITING; Start 05/17/18 at 04:00 Heparin Sodium (Porcine) (Heparin (5000 Units/1ml)) 5,000 unit Q12 SC Last administered on 05/26/18 08:16; Admin Dose 5,000 UNIT; Start 05/17/18 at 09:00 Lorazepam (Ativan) 1 mg Q8H PRN IV catatonia Last administered on 05/22/18at 17:48; Admin Dose 1 MG; Start 05/20/18 at 01:00 Olanzapine (Zyprexa) 2.5 mg BID PRN IM agitation; Start 05/24/18 at 16:30 Chlorpromazine (Thorazine) 15 mg BID IM Last administered on 05/26/18at 08:18; Admin Dose 15 MG; Start 05/24/18 at 21:00 Lorazepam (Ativan) 1 mg Q8H IV Last administered on 05/26/18at 08:16; Admin Dose 1 MG; Start 05/24/18 at 16:30 GISSEL CLAYTON MD May 26, 2018 15:02
[2018-05-26 18:30] VITALS: PULSE 129
[2018-05-26 19:47] VITALS: BP 106/59; PULSE 124; RESP 18
[2018-05-26 23:38] VITALS: PULSE 109
[2018-05-27] MEDS: D5W-0.45 NACL + KCL 20 MEQ 1,000 ML IV SCH (01:10)
[2018-05-27 01:42] VITALS: BP 90/52; PULSE 102; RESP 18
[2018-05-27 03:38] VITALS: PULSE 98
[2018-05-27 08:11] VITALS: BP 101/47; PULSE 89; RESP 18
[2018-05-27] MEDS: CHLORPROMAZINE 25 MG INJ IM SCH ×2 (08:29→21:00)
[2018-05-27] MEDS: HEPARIN 5,000 UNIT/1 ML VIAL SC SCH ×2 (08:36→21:00)
--- NOTE | 2018-05-27 12:31 | PN ---
Date/Time of Note Date/Time of Note DATE: 05/27/18 TIME: 12:29 Assessment/Plan VTE Prophylaxis Risk score (from Nsg)>0 risk: 3 SCD applied (from Ns): Yes Pharmacological prophylaxis: NA/contraindicated Pharm contraindication: low risk/ambulating Lines/Catheters IV Catheter Type (from Nrsg): Peripheral IV Urinary Cath still in place: No Assessment/Plan Assessment/Plan 1. Catatonia, on ativan. Now awake but still gravely disabled, plan for transfer to psych facility. 2. Depression, psychosis, anxiety, on chlorpromazine, follow up with psychiatry 3. DVT prophylaxis: heparin SQ Dispo: Patient awake and alert, ambulatory. Medically clear to transfer to [facility] psych. If cannot be transferred, maybe repeat tele-psych eval to see if he can be discharged home. Result Diagram: 05/25/18 0742 Subjective 24 Hr Interval Summary Free Text/Dictation No acute overnight events. Patient awake and alert today. He is aware he was "sleeping" for the past week and acknowledges this has happened before. Able to ambulate the full 5th floor [place] without assistance. Wants to go home. I informed him still on 5150. Exam/Review of Systems Exam Vitals Vital Signs Date Temp Pulse Resp B/P (MAP) Pulse Ox O2 O2 Flow FiO2 Time Delivery Rate 05/27/18 98.3 89 18 101/47 99 08:11 (65) 05/24/18 Room Air 14:08 Intake and Output 05/26/18 05/26/18 05/27/18 1515:00 23:00 07:00 IntakeIntake Total 1270 ml 1307.5 ml OutputOutput Total 1600 ml BalanceBalance -330 ml 1307.5 ml Exam Constitutional: Well developed man lying in bed in no distress. Head: normocephalic, atraumatic ENMT: nl external ears & nose, nl lips & teeth, nl nasal mucosa & septum Neck: supple, non-tender Respiratory: Breathing comfortably on room air. Cardiovascular: regular rate and rhythm Gastrointestinal: soft, nontender. Musculoskeletal: nl extremities to inspection Extremities: normal pulses; Medications Medication Current Medications Potassium Chloride/Dextrose/ Sod Cl 1,000 ml @ 75 mls/hr [id number] IV Last administered on 05/27/18at 01:10; Admin Dose 75 MLS/HR; Start 05/17/18 at 03:39 IV Flush (NS 3 ml) 3 ml PER PROTOCOL IV ; Start 05/17/18 at 04:00 Ondansetron HCl (Zofran Inj) 4 mg Q6H PRN IV NAUSEA/VOMITING; Start 05/17/18 at 04:00 Heparin Sodium (Porcine) (Heparin (5000 Units/1ml)) 5,000 unit Q12 SC Last administered on 05/26/18at 08:16; Admin Dose 5,000 UNIT; Start 05/17/18 at 09:00 Lorazepam (Ativan) 1 mg Q8H PRN IV catatonia Last administered on 05/22/18at 17:48; Admin Dose 1 MG; Start 05/20/18 at 01:00 Olanzapine (Zyprexa) 2.5 mg BID PRN IM agitation; Start 05/24/18 at 16:30 Chlorpromazine (Thorazine) 15 mg BID IM Last administered on 05/26/18at 08:18; Admin Dose 15 MG; Start 05/24/18 at 21:00 GISSEL CLAYTON MD May 27, 2018 12:31
[2018-05-27 14:23] VITALS: BP 96/57; PULSE 98; RESP 17
--- NOTE | 2018-05-27 16:23 | RADRPT ---
Vent Rate: 89 bpm RR Interval: 0 msec DC Interval: 136 msec QRS Duration: 88 msec QT Interval: 352 msec QTC Interval: 428 msec P-R-T [place]: 66 - 68 - 41 degrees Normal sinus rhythm Normal ECG Electronically Signed By: Renard Alvarado
[2018-05-27 20:45] VITALS: BP 98/58; PULSE 86; RESP 18
[2018-05-27] MEDS: DOCUSATE SODIUM 100 MG CAP PO SCH (23:02)
[2018-05-27] MEDS: POLYETHYLENE GLYCOL 17 GM PACKET GTB SCH (23:02)
[2018-05-28 02:14] VITALS: BP 89/53; PULSE 75; RESP 18
[2018-05-28 08:00] VITALS: BP 96/48; PULSE 84; RESP 18
[2018-05-28] MEDS: CHLORPROMAZINE 25 MG INJ IM SCH (08:31)
[2018-05-28] MEDS: HEPARIN 5,000 UNIT/1 ML VIAL SC SCH (08:32)
[2018-05-28] MEDS: POLYETHYLENE GLYCOL 17 GM PACKET GTB SCH (08:33)
[2018-05-28] MEDS: DOCUSATE SODIUM 100 MG CAP PO SCH (08:33)
--- NOTE | 2018-05-28 11:58 | CONS ---
Assessment/Plan Assessment/Plan Hospital Course 27 M c/ Hx of psychiatric illness, who is admitted for evaluation of ams.. The clinical picture suggests a decompensated psychiatric disorder. An acute [employer] DEVELOPER process is less likely, though, not yet excluded.. MRI brain is without evidence of acute intracranial pathology.. EEG was reassuringly without epileptiform activity. TSH/ammonia/B12 wnl P: Ok to defer neuroimaging for now Psychiatry follow up Medical management and supportive care per primary Will sign off for now; please call w/ ?s Consultation Date/Type/Reason Admit Date/Time May 17, 2018 at 01:36 Type of Consult Neurology Reason for Consultation ams Requesting Provider: MELANI GIBBS MD Date/Time of Note DATE: 05/28/18 TIME: 11:58 24 HR Interval Summary Free Text/Dictation Continues acute care. Pt reportedly awake today. Exam Vital Signs Vitals Vital Signs Date Temp Pulse Resp B/P (MAP) Pulse Ox O2 O2 Flow FiO2 Time Delivery Rate 05/28/18 97.8 84 18 96/48 (64) 98 08:00 05/24/18 Room Air 14:08 Intake and Output 05/27/18 05/27/18 05/28/18 1515:00 23:00 07:00 IntakeIntake Total 940 ml 120 ml OutputOutput Total 1400 ml 300 ml BalanceBalance -460 ml -180 ml Exam PE: Gen Appearance: No Apparent Distress HEENT: Normocephalic Cardiovascular: Regular rate Lungs: Clear bilaterally Abdomen: Soft Extremities: Dry NE: The patient was alert and oriented. Language was normal. Fund of knowledge was normal. Pupils were equal and reactive to light. There was no afferent pupillary defect. Visual deng were normal. Funduscopic examination was limited. Extra-ocular movements were full. Ptosis was absent. There was no nystagmus. Facial sensation was normal. Face was symmetric with normal strength. Hearing was intact. Palate movements were normal. Neck strength was normal. There was normal tongue bulk and speed of movement. Tone was normal. Muscle bulk was normal. I did not see fasciculations. Arms and legs were moving spontaneously. Vibration sensation was normal. Temperature and pinprick sensation was normal. Rapid alternating movements were normal. There was no dysmetria. There was no intention tremor. Gait was deferred due to bedrest. Arm and leg reflexes were 2+ and symmetric. Peacock's sign was absent. Plantar responses were flexor. ELODIA RODRIGUEZ NP May 28, 2018 11:58 FIDEL CHAVEZ May 28, 2018 14:17
[2018-05-28 14:00] VITALS: BP 96/58; PULSE 101; RESP 18
--- NOTE | 2018-05-28 14:03 | PDOCDIS ---
Discharge Instructions CONDITION [id number] Patient Condition: [id number] Stable HOME CARE INSTRUCTIONS: [id number] Diet Instructions: [id number] Low Fat /Cholesterol ACTIVITY: [id number] Activity Restrictions: [id number] Slowly Increase Activity Rest between Activity Avoid heavy lifting FOLLOW UP/APPOINTMENTS Follow-up Plan Please take your medications as prescribed, see your doctor in the clinic in the next 1-2 weeks for follow-up. ILENE LUTZ May 28, 2018 14:03
[2018-05-28] MEDS ORDERED: OLAN5TAB5 PO (14:05)
--- NOTE | 2018-05-28 14:12 | DS ---
Date/Time of Note Date/Time of Note DATE: 05/28/18 TIME: 14:07 Discharge Summary Admission/Discharge Info Admit Date/Time May 17, 2018 at 01:36 Discharge Date/Time Discharge Diagnosis 1. Catatonia-resolved after a few days, now awake evaluated by psychiatry team during this hospital admission 2. Depression, psychosis, anxiety-prior to admission had been on chlorpromazine, follow up with psychiatry Patient Condition: Stable Hx of Present Illness 27-year-old male with a history of depression, psychosis, anxiety, catatonia who was brought to the ER for excessive sleepiness and altered mentation. I nformation is gathered from sister who was at the bedside. Patient eyes closed and only responds to painful stimuli. According to the sister, problem started around July of last year after patient his . They do however CT chest or off and on usually on weekends. Patient progressively became more depressed and at times has been experiencing auditory hallucinations. He was diagnosed with depression, psychosis and anxiety and has been placed on psychiatric medications. In January of last year, sister noticed that patient sometimes sleeps excessively for 36 hours or so. This happened again last month. At that time he was taken to [facility] where he was medically managed. Sister is not sure about the results of the brain imaging at that time. Patient is now brought to our ER because his eyes has been closed and has been sleeping for 48 hours. Sister said the last time he opened his eyes was around 7 PM on Monday, which is 2 days ago. She said he is never aggressive or combative. She did mention about occasional auditory hallucinations. No alcohol or illicit drug use. No history of seizure or seizure-like activity witnessed. Sister also went on to say that he lives with her Monday through Monday and on weekends he stays with his ex-. She said every time he comes back after staying with his , he becomes more altered and sick. When he presented to ER, vitals were stable. Head CT without acute findings. Lab shows a WBC of 12.4 and a potassium of 2.6. Patient has not eaten for 48 hours. Hospital Course Patient was admitted with a diagnosis of catatonia. Patient apparently has a prior history of these occurrences. He was seen by psychiatry neurology team during this hospital stay. Patient had some tests performed which included MRI brain is without evidence of acute intracranial pathology. EEG was reassuringly without epileptiform activity. TSH/ammonia/B12 wnl as well. Eventually has catatonia resolved. He was initially recommended to be placed on a 5150 hold with a sitter which was performed. Initially he was thought to be needed to be transferred to inpatient psych psychiatric facility. However upon their evaluation on the day of discharge, they felt that the patient was more awake and alert, tolerating diet, did not show any signs of any further catatonia or other psychiatric symptoms. They felt that the patient could be discharged home with close follow-up with outpatient psychiatrist in the next week or 2 and in improved condition. The inpatient psychiatrist did recommend a few days prior to discharge Zyprexa as needed for agitation which we will prescribe. Because the patient is clinically improved as mentioned before he will be discharged home today and is stated will need close follow-up with psychiatry outpatient services in improved condition. See below for full list of discharge medications. Home Meds Active Scripts Olanzapine* (Zyprexa*) 5 Mg Tablet, 5 MG PO QPM, #30 TAB Prov:ILENE LUTZ 05/28/18 Discontinued Reported Medications Escitalopram Oxalate* (Escitalopram Oxalate*) 5 Mg Tablet, 5 MG PO DAILY, #30 TAB 05/17/18 Clonazepam* (Clonazepam*) 1 Mg Tablet, 1 MG PO Q8H PRN for ANXIETY, TAB 05/17/18 Olanzapine* (Olanzapine*) 15 Mg Tablet, 15 MG PO DAILY, TAB 05/17/18 Benztropine Mesylate* (Benztropine Mesylate*) 1 Mg Tablet, 1 MG PO BID, TAB 05/17/18 Discontinued Scripts Clotrimazole* (Clotrimazole* AF) 1% - 30 Gm Cream.gm., 1 APPLIC TOP BID for 7 Days, TUB Prov:NANCY HOGAN PA-C 05/03/16 Follow-up Plan Please take your medications as prescribed, see your doctor in the clinic in the next 1-2 weeks for follow-up. Primary Care Provider Time spent on discharge: > 30 minutes ILENE LUTZ May 28, 2018 14:12
--- NOTE | 2018-05-29 02:32 | ERD ---
ER Documentation Chief Complaint Chief Complaint bib ra from home for aloc, hx of psych dx, depression, altered, HPI This is a 19-year-old male brought in by rescue from home for altered level conscious. 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 Patient himself refuses to give any history and does not move at all. ROS All systems reviewed and are negative except as per history of present illness. Medications Home Meds Active Scripts Olanzapine* (Zyprexa*) 5 Mg Tablet, 5 MG PO QPM, #30 TAB Prov:ILENE LUTZ S. 05/28/18 Discontinued Reported Medications Escitalopram Oxalate* (Escitalopram Oxalate*) 5 Mg Tablet, 5 MG PO DAILY, #30 TAB 05/17/18 Clonazepam* (Clonazepam*) 1 Mg Tablet, 1 MG PO Q8H PRN for ANXIETY, TAB 05/17/18 Olanzapine* (Olanzapine*) 15 Mg Tablet, 15 MG PO DAILY, TAB 05/17/18 Benztropine Mesylate* (Benztropine Mesylate*) 1 Mg Tablet, 1 MG PO BID, TAB 05/17/18 Discontinued Scripts Clotrimazole* (Clotrimazole* AF) 1% - 30 Gm Cream.gm., 1 APPLIC TOP BID for 7 Days, TUB Prov:NANCY HOGAN PA-C 05/03/16 Allergies Allergies: Coded Allergies: No Known Allergy (Unverified , 05/17/18) PMhx/Soc Medical and Surgical Hx: pt denies Surgical Hx History of Surgery: No Anesthesia Reaction: No Hx Neurological Disorder: No Hx Respiratory Disorders: No Hx Cardiac Disorders: No Hx Psychiatric Problems: Yes (acute depression w/psychotic symptoms, catatonia) Hx Miscellaneous Medical Probl: Yes (depression, psychosis, anxiety, catatonia) Hx Alcohol Use: No Hx Substance Use: No Hx Tobacco Use: No Smoking Status: Never smoker Physical Exam Physical Exam Const: No acute distress Head: Atraumatic Eyes: Normal Conjunctiva ENT: Normal External Ears, Nose and Mouth. Neck: Full range of motion. No meningismus. Resp: Clear to auscultation bilaterally Cardio: Regular rate and rhythm, no murmurs Abd: Soft, non tender, non distended. Normal bowel sounds Skin: No petechiae or rashes Back: No midline or flank tenderness Ext: No cyanosis, or edema Neur: Awake and alert Psych: Normal Mood and Affect Result Diagram: 05/25/18 0742 Results 24 hrs Laboratory Tests Test 05/16/18 22:49 05/16/18 23:05 White Blood Count 12.4 10^3/ul Red Blood Count 4.74 10^6/ul Hemoglobin 14.1 g/dl Hematocrit 40.6 % Mean Corpuscular Volume 85.7 fl Mean Corpuscular Hemoglobin 29.7 pg Mean Corpuscular Hemoglobin Concent 34.7 g/dl Red Cell Distribution Width 11.9 % Platelet Count 187 10^3/UL Mean Platelet Volume 12.4 fl Immature Granulocytes % 0.600 % Neutrophils % 78.8 % Lymphocytes % 14.1 % Monocytes % 6.0 % Eosinophils % 0.2 % Basophils % 0.3 % Nucleated Red Blood Cells % 0.0 /100WBC Immature Granulocytes # 0.070 10^3/ul Neutrophils # 9.8 10^3/ul Lymphocytes # 1.8 10^3/ul Monocytes # 0.8 10^3/ul Eosinophils # 0.0 10^3/ul Basophils # 0.0 10^3/ul Nucleated Red Blood Cells # 0.0 10^3/ul Sodium Level 143 mmol/L Potassium Level 2.6 mmol/L Chloride Level 114 mmol/L Carbon Dioxide Level 18 mmol/L Anion Gap 11 Blood Urea Nitrogen 13 mg/dl Creatinine 0.54 mg/dl Est Glomerular Filtrat Rate mL/min > 60 mL/min Glucose Level 76 mg/dl Calcium Level 8.0 mg/dl Total Bilirubin 0.5 mg/dl Direct Bilirubin 0.00 mg/dl Indirect Bilirubin 0.5 mg/dl Aspartate Amino Transf (AST/SGOT) 16 IU/L Alanine Aminotransferase (ALT/SGPT) 36 IU/L Alkaline Phosphatase 58 IU/L Troponin I < 0.012 ng/ml Total Protein 6.4 g/dl Albumin 3.8 g/dl Globulin 2.60 g/dl Albumin/Globulin Ratio 1.46 Salicylates Level < 1.0 mg/dl Acetaminophen Level < 10.0 ug/ml Ethyl Alcohol Level < 10.0 mg/dl Urine Color YELLOW Urine Clarity CLEAR Urine pH 6.0 Urine Specific [place] 1.021 Urine Ketones 1+ mg/dL Urine Nitrite NEGATIVE mg/dL Urine Bilirubin NEGATIVE mg/dL Urine Urobilinogen 1+ mg/dL Urine Leukocyte Esterase NEGATIVE Luis Fernando/ul Urine Microscopic RBC 4 /HPF Urine Microscopic WBC 0 /HPF Urine Hemoglobin 1+ mg/dL Urine Glucose NEGATIVE mg/dL Urine Total Protein NEGATIVE mg/dl Urine Opiates Screen Negative Urine Barbiturates Negative Urine Amphetamines Screen Negative Urine Benzodiazepines Screen Negative Urine Cocaine Screen Negative Urine Cannabinoids Negative Current Medications Medications Dose Sig/Lia Start Time Status Last (Trade) Ordered Route PRN Stop Time Admin Dose Reason Admin Sodium 500 ml @ Q1H STAT 05/16/18 DC 05/16/18 Chloride 500 mls/hr IV 22:38 22:52 05/16/18 23:37 Potassium 100 ml @ Q2H IVPB 05/16/18 DC 05/17/18 Chloride 50 mls/hr 23:30 04:35 05/17/18 05:29 Procedures/MDM Medical decision making: Is a 19-year-old male with essentially psychiatric catatonia, however the patient does have severe hypokalemia. It has been supplemented however the patient will need to be admitted to telemetric setting given his severe hypokalemia. Psychiatric consult can be appreciated as an inpatient. Departure Diagnosis: Primary Impression: Catatonia Additional Impression: Hypokalemia Condition: Serious Patient Instructions: Hypokalemia FRANCISCO BARBA May 29, 2018 02:32
== END 2018-05-28 15:45 | disposition home or self-care (01) | DRG 885 ==
LOC: E/R 21:39 → MERGE 05-17 01:36 → TEL 05-17 01:36 → CANRESERV 05-17 04:18 → TEL 05-17 17:32 → 5EC 05-21 15:48
PROVIDERS: ADMIT Internal Medicine; ATTEND Hospitalist
DX: F20.2 Catatonic schizophrenia (principal); R13.10 Dysphagia, unspecified; F32.9 Major depressive disorder, single episode, unspecified; F29 Unspecified psychosis not due to a substance or known physiological condition; F41.9 Anxiety disorder, unspecified
CPT/HCPCS: 70450; 70551; 71045; 80048; 80053; 80061; 80307; 81001; 82140; 82607; 83036; 83735; 84100; 84425; 84443; 84484; 85025; 86592; 90686; 93005; 95819; 97161; J0690; J1644; J2060; J3230; J3480; J7040

== ENCOUNTER 2018-07-21 20:35 | Inpatient (IN) | payer MEDICAID, OTHER ==
[~2018-07-21] VITALS: Ht 180.3 cm; Wt 56.7 kg
[~2018-07-21 20:35] MED LIST changes: -CLOT30CR24 TOP; +OLAN5TAB5 PO
[2018-07-21] MEDS ORDERED: SOD CHLORIDE 0.9% 1,000 ML IV STA (20:37)
[2018-07-21] MEDS ORDERED: SOD CHLORIDE 0.9% 500 ML IV STA (20:37)
--- NOTE | 2018-07-21 22:45 | ERD ---
ER Documentation Chief Complaint Chief Complaint bruce KAM from home,filure to thrive,refused to speak,low BS 59 HPI This is a 27-year-old male who is not providing any history. History is later provided by family the patient had a mental breakdown in January and basically stopped eating. He had a recent hospitalization at an outside hospital for similar symptoms. The family called because he has not been eating over the last several days. Patient's blood pressure is borderline low. Blood sugars in the 50-60 range. Patient is not providing any history and refuses to speak. ROS All systems reviewed and are negative except as per history of present illness. Allergies Allergies: Coded Allergies: Unknown: Unable to obtain (Unverified , 07/21/18) Pt refused to respond. PMhx/Soc Medical and Surgical Hx: Unable to obtain Smoking Status: Unknown if ever smoked FmHx Family History: No diabetes Physical Exam Vitals Vital Signs Date Temp Pulse Resp B/P (MAP) Pulse Ox O2 O2 Flow FiO2 Time Delivery Rate 07/21/18 98.4 75 18 99/52 (68) 100 Room Air 21:24 07/21/18 Nasal 21:20 Cannula 07/21/18 98.4 69 18 99/58 (72) 100 20:42 Physical Exam General: Cachectic male, refusing to speak Head: Normocephalic, atraumatic. Eyes: Pupils equally reactive, EOM intact ENT: Dry mucous membranes Neck: Supple, no lymphadenopathy Respiratory: Lungs clear bilaterally, no distress Cardiovascular: RRR, no murmurs, rubs, or gallops Abdominal: Soft, non-tender, non-distended, no peritoneal signs : Deferred MSK: No edema, no unilateral swelling, Neurologic: uncooperative, moving extremities but limited exam Skin: No rash Psych: Unable to assess, patient not conversive Result Diagram: 07/21/188 07/21/188 Results 24 hrs Laboratory Tests Test 07/21/18 20:46 07/21/18 21:21 07/21/18 22:18 Bedside Glucose 62 mg/dL Prothrombin Time 13.3 Sec Prothrombin Time Ratio 1.0 INR International Normalized Ratio 1.00 Activated Partial Thromboplast 31.4 Sec Time White Blood Count 8.5 10^3/ul Red Blood Count 4.07 10^6/ul Hemoglobin 11.9 g/dl Hematocrit 36.2 % Mean Corpuscular Volume 88.9 fl Mean Corpuscular Hemoglobin 29.2 pg Mean Corpuscular 32.9 g/dl Hemoglobin Concent Red Cell Distribution Width 13.0 % Platelet Count 199 10^3/UL Mean Platelet Volume 12.3 fl Immature Granulocytes % 0.400 % Neutrophils % 64.6 % Lymphocytes % 28.3 % Monocytes % 5.4 % Eosinophils % 0.9 % Basophils % 0.4 % Nucleated Red Blood Cells % 0.0 /100WBC Immature Granulocytes # 0.030 10^3/ul Neutrophils # 5.5 10^3/ul Lymphocytes # 2.4 10^3/ul Monocytes # 0.5 10^3/ul Eosinophils # 0.1 10^3/ul Basophils # 0.0 10^3/ul Nucleated Red Blood Cells # 0.0 10^3/ul Sodium Level 141 mmol/L Potassium Level 3.8 mmol/L Chloride Level 106 mmol/L Carbon Dioxide Level 22 mmol/L Anion Gap 13 Blood Urea Nitrogen 26 mg/dl Creatinine 0.69 mg/dl Est Glomerular Filtrat Rate mL/min > 60 mL/min Glucose Level 71 mg/dl Calcium Level 9.9 mg/dl Total Bilirubin 0.8 mg/dl Direct Bilirubin 0.00 mg/dl Indirect Bilirubin 0.8 mg/dl Aspartate Amino Transf (AST/SGOT) 26 IU/L Alanine 29 IU/L Aminotransferase (ALT/SGPT) Alkaline Phosphatase 66 IU/L Troponin I < 0.012 ng/ml Total Protein 7.4 g/dl Albumin 4.5 g/dl Globulin 2.90 g/dl Albumin/Globulin Ratio 1.55 Free Thyroxine Index Pending Thyroxine (T4) Pending Triiodothyronine (T3) Uptake Pending Ethyl Alcohol Level < 10.0 mg/dl Current Medications Medications Dose Sig/Lia Start Time Status Last (Trade) Ordered Route PRN Stop Time Admin Dose Reason Admin Sodium 500 ml @ Q1H STAT 07/21/18 DC 07/21/18 Chloride 500 mls/hr IV 20:37 20:37 07/21/18 21:36 Sodium 1,000 ml @ Q1H STAT 07/21/18 DC 07/21/18 Chloride 1,000 mls/hr IV 20:37 20:37 07/21/18 21:36 1,000 ml @ Q10H IV 07/21/18 Dextrose/Sodi 100 mls/hr 23:00 um Chloride Procedures/MDM EKG, MONITORS, & DIAGNOSTIC IMAGING: EKG: I reviewed and interpreted a 12-lead EKG. Rhythm: Normal sinus rhythm ST Changes: No contiguous ST segment elevations T waves: No contiguous T wave inversions Impression: No evidence of acute cardiac ischemia CTB IMPRESSION: 1. No acute intracranial abnormality. 2. Generalized atrophy. 3. Incidental slight asymmetry lateral ventricles without an underlying lesion. RPTAT: HMVK Chest x-ray: I reviewed and interpreted a 1 view of the chest Mediastinum: No enlargement Cardiac silhouette: No cardiomegaly Airspace: Clear lung deng bilaterally without evidence of pneumothorax Bones: No evidence of fracture LAB INTERPRETATION: I reviewed the laboratory testing and it shows hypoglycemia MEDICAL DECISION MAKING: Patient has signs and symptoms consistent with severe dehydration, failure to thrive and borderline hypoglycemia. The patient is neglecting himself. There is likely underlying psychiatric illness but the patient likely has medical issues that need to be addressed first. The patient is clinically dehydrated. IV fluids provided. Dextrose solution initiated. ER COURSE: * Patient given IV fluid resuscitation, dextrose supplementation * Patient will require inpatient psychiatric evaluation CONSULTATION: None DISPOSITION PLAN: Accepting care team and consultations: I discussed the current laboratory data, diagnostic imaging and emergency care provided. Admitting team: Dr. Salinas Admitting team indication: Insurance directed Departure Diagnosis: Primary Impression: Severe dehydration Additional Impressions: Failure to thrive in adult Hypoglycemia Condition: Stable SUSANNE CASTILLO MD July 21, 2018 22:45
[2018-07-21] MEDS: DEXTROSE 5%-0.45% NACL 1,000 ML IV SCH (23:25)
[2018-07-22] MEDS ORDERED: NACL 0.9% 3 ML SYG IV SCH
[2018-07-22] MEDS ORDERED: LORAZEPAM 2 MG INJ IV ONE
[2018-07-22] MEDS ORDERED: ACETAMINOPHEN 325 MG TAB PO PRN ×2
[2018-07-22] MEDS ORDERED: ONDANSETRON 4 MG INJ IV PRN ×2
[2018-07-22] MEDS ORDERED: LORAZEPAM 2 MG INJ IV PRN
--- NOTE | 2018-07-22 01:37 | HP ---
Date/Time of Note Date/Time of Note DATE: 07/22/18 TIME: 01:36 Assessment/Plan VTE Prophylaxis SCD applied (from Nsg): Yes Pharmacological prophylaxis: NA/contraindicated Pharm contraindication: low risk/ambulating Lines/Catheters IV Catheter Type (from Nrsg): Saline Lock Assessment/Plan Hospital Course This is a 27-year-old male being admitted to the [facility] floor for: #1 suspect major depressive disorder: At the current time we will obtain a telemetry psych evaluation. I did recommend to the ED physician that patient would need inpatient psychiatric evaluation. However given that the fact that the patient is not eating the ED physician suspected that the psychiatric facilities would not accept him. At the current time we will await telemetry psychiatry evaluation for medication recommendations. We will also obtain social work and case management consult to assist in seeing if we can transfer the patient to inpatient psychiatry. Patient was on Zyprexa, clonazepam, and lorazepam that he received from [facility]. We will attempt to convert this to IM dosing in the meantime to see if they have any positive effect for the patient. Will consult inpatient psych nurse practitioner. #2 failure to thrive: Secondary to #1. Patient is refusing to eat or drink. He does appear to be malnourished. His labs though do appear stable. We will provide him with IV fluid hydration with dextrose. Monitor electrolytes. Encourage diet. #3 protein calorie malnutrition: Secondary to refusal to eat secondary to psychiatric disorder. Attempt to encourage diet. IV fluid hydration at the current time. #4 DVT GI prophylaxis: Lovenox, no GI prophylaxis indicated Further treatment strategy will be implemented as per the clinical course. Result Diagram: 07/21/188 07/21/188 Results 24hrs Laboratory Tests Test 07/21/18 20:46 07/21/18 21:21 07/21/18 22:18 Bedside Glucose 62 L Prothrombin Time 13.3 Prothrombin Time Ratio 1.0 INR International Normalized Ratio 1.00 Activated Partial Thromboplast Time 31.4 White Blood Count 8.5 Red Blood Count 4.07 L Hemoglobin 11.9 L Hematocrit 36.2 L Mean Corpuscular Volume 88.9 Mean Corpuscular Hemoglobin 29.2 Mean Corpuscular Hemoglobin Concent 32.9 Red Cell Distribution Width 13.0 Platelet Count 199 Mean Platelet Volume 12.3 H Immature Granulocytes % 0.400 Neutrophils % 64.6 Lymphocytes % 28.3 Monocytes % 5.4 Eosinophils % 0.9 Basophils % 0.4 Nucleated Red Blood Cells % 0.0 Immature Granulocytes # 0.030 Neutrophils # 5.5 Lymphocytes # 2.4 Monocytes # 0.5 Eosinophils # 0.1 Basophils # 0.0 Nucleated Red Blood Cells # 0.0 Sodium Level 141 Potassium Level 3.8 Chloride Level 106 Carbon Dioxide Level 22 Anion Gap 13 Blood Urea Nitrogen 26 H Creatinine 0.69 Est Glomerular Filtrat Rate mL/min > 60 Glucose Level 71 Calcium Level 9.9 Total Bilirubin 0.8 Direct Bilirubin 0.00 Indirect Bilirubin 0.8 Aspartate Amino Transf (AST/SGOT) 26 Alanine Aminotransferase (ALT/SGPT) 29 Alkaline Phosphatase 66 Troponin I < 0.012 Total Protein 7.4 Albumin 4.5 Globulin 2.90 Albumin/Globulin Ratio 1.55 Free Thyroxine Index 2.33 Thyroxine (T4) 7.7 Triiodothyronine (T3) Uptake 30.2 Ethyl Alcohol Level < 10.0 H HPI/ROS Admit Date/Time Admit Date/Time Hx of Present Illness Chief complaint: Not speaking, refusing to eat This is a 27-year-old male brought in via EMS after patient refusing to eat or talk. History was provided by the family at the bedside. Family states that patient recently was admitted to [facility] and was there for approximately 6 weeks due to similar condition. Family states that prior to his admission at [facility] patient had an issue with his girlfriend and was no longer able to live with her. Patient as a result of that ended up not eating or drinking and not communicating. He was admitted to [facility] and was there for approximately 6 weeks and then just a few days ago was discharged and he walked home. Patient was back to talking and eating at home however after he talked to his girlfriend again and after she did not want him to come back to the house patient completely shut down. He has not been eating or drinking. The family states that today when they called the EMS that the p atient all of a sudden got up and tried to run away from them. Upon my examination of the patient at the bedside he is laying flat on the bed without any movement. His eyes are open and he just staring into space. He does not respond to questions nor does the follow any commands. Patient was discharged from [facility] with medications but the patient has not been taking them. Family does report that he has lost a significant amount of weight since he is refusing to eat or drink. Allergies: None Medications: Clonazepam Lorazepam Zyprexa ROS Subjective hx not possible: pt non-verbal PMH/Family/Social Past Medical History Suspect mood disorder/adjustment disorder Medications Current Medications Dextrose/Sodium Chloride 1,000 ml @ 100 mls/hr Q10H IV Last administered on 07/21/18at 23:25; Admin Dose 100 MLS/HR; Start 07/21/18 at 23:00 Ondansetron HCl (Zofran Inj) 4 mg BRIDGE ORDER PRN IV NAUSEA/VOMITING; Start 07/22/18 at 00:00; Stop 07/22/18 at 23:59 Acetaminophen (Tylenol Tab) 650 mg ER BRIDGE PRN PO .MILD PAIN 1-3 OR TEMP; Start 07/22/18 at 00:00; Stop 07/22/18 at 23:59 IV Flush (NS 3 ml) 3 ml PER PROTOCOL IV ; Start 07/22/18 at 00:00 Ondansetron HCl (Zofran Inj) 4 mg Q6H PRN IV NAUSEA/VOMITING; Start 07/22/18 at 00:00 Acetaminophen (Tylenol Tab) 650 mg Q6H PRN PO .PAIN 1-3 OR TEMP; Start 07/22/18 at 00:00 Lorazepam (Ativan) 0.5 mg Q8H PRN IV ANXIETY; Start 07/22/18 at 00:00 Coded Allergies: Unknown: Unable to obtain (Unverified , 07/21/18) Pt refused to respond. Past Surgical History Past Surgical Hx: no surgical history Family History Significant Family History: no pertinent family hx Social History Alcohol Use: none Smoking Status: Current every day smoker Drug Use: marijuana Exam/Review of Systems Vital Signs Vitals Vital Signs Date Temp Pulse Resp B/P (MAP) Pulse Ox O2 O2 Flow FiO2 Time Delivery Rate 07/21/18 98.4 56 16 97/55 (69) 100 Room Air 23:54 Exam Exam General: Patient is currently lying in bed he does not appear to be in any acute distress, he is noncommunicative. His eyes are open. He does not respond to questions or commands. She does appear to be malnourished HEENT: Atraumatic, normocephalic. The pupils are equal, round and reactive. Extraocular motor are intact, mucous membranes slightly dry Neck: Supple with full range of motion. No rigidity or meningismus Chest: Nontender Lungs: Clear to auscultation bilaterally no crackles rales or wheezing Heart: Normal S1-S2, Regular rhythm and rate. No murmur, S3, or S4 Abdomen: Soft , nontender, nondistended , bowel sounds are present. No guarding no rebound tenderness , No masses or organomegaly. No costovertebral temporal angle mass Extremities: Normal to inspection, no edema no cyanosis Neurologic: Awake, but not responding to commands or conversing. Psych: Awake, flat affect. Noncombative. Additional Comments PROCEDURE: CT Brain without contrast. CLINICAL INDICATION: Altered mental status. TECHNIQUE: Serial axial computed tomographic images of the brain was performed on a CT scanner from the skull base through the vertex without contrast. Sagittal and coronal reconstruction images were produced. Exam CTDlvol = 40 mGy and DLP = 634 mGy-cm. One of the following 3 dose reduction techniques were used: Automated exposure control; adjustment of the mA and/or kV according to patient size; or use of iterative reconstruction technique. DICOM images are available. COMPARISON: None available FINDINGS: There is mild generalized atrophy for age. There is slight asymmetric dilation of the left lateral ventricle without an underlying lesion, likely a congenital variant. The ventricles and sulci are otherwise normal in size and configuration. There is no hydrocephalus. There is no midline shift. There are no focal parenchymal abnormalities. There is no acute stroke. No acute intrac ranial hemorrhage or abnormal extra-axial fluid collection. No fracture identified. Visualized paranasal sinuses are clear. IMPRESSION: 1. No acute intracranial abnormality. 2. Generalized atrophy. 3. Incidental slight asymmetry lateral ventricles without an underlying lesion. RPTAT: HMVK .Renard Kim MD, Date Time Electronically viewed and signed by .Renard Kim MD, MD on 07/21/2018 22:05 .K/ CC: SUSANNE CASTILLO MD [id number] PROCEDURE: XR Chest. CLINICAL INDICATION: Shortness of breath. TECHNIQUE: Single frontal chest x-ray. COMPARISON: None. FINDINGS: The cardiomediastinal silhouette is unremarkable. There is no congestive heart failure.. No focal infiltrate is seen. There is no pleural effusion. There is no pneumothorax. The osseous structures are unremarkable. IMPRESSION: 1. No active disease. RPTAT: HMVK .Renard Kim MD, MD Date Time Electronically viewed and signed by .Renard Kim MD, MD on 07/21/2018 22:03 .K/ CC: SUSANNE CASTILLO MD [id number] JERAMY SHETH July 22, 2018 01:37
[2018-07-22 02:00] VITALS: BP 124/76; PULSE 74; RESP 18
[2018-07-22] MEDS ORDERED: ACCU-CHEK XX SCH (02:00)
[2018-07-22] MEDS ORDERED: GLUCOSE GEL 15 GRAM TUBE PO PRN ×2 (02:00)
[2018-07-22] MEDS ORDERED: GLUCAGON 1 MG INJ IM PRN (02:00)
[2018-07-22] MEDS ORDERED: GLUCOSE GEL 15 GRAM TUBE BUCCAL PRN (02:00)
[2018-07-22] MEDS ORDERED: DEXTROSE 50% 50 ML SYRINGE IV PRN ×2 (02:00)
[2018-07-22 02:01] VITALS: Ht 180.3 cm; Wt 56.7 kg
[2018-07-22] MEDS: DEXTROSE 5%-0.45% NACL 1,000 ML IV SCH (02:19)
--- NOTE | 2018-07-22 02:38 | PSY ---
Date/Time of Note Date/Time of Note DATE: 07/22/18 TIME: 02:32 Psychiatric Subjective Eval Consent Pt consented to telemedicine: Yes Subjective Evaluation Patient location: emergency Chief Complaint: EDDY,m from home,filure to thrive,refused to speak,low BS 59 Reason for consult: not eating not talking History of present illness patient is 27 yo male with PPH Of depression and anxiety who was brought to the ER by his sister and sister's boyfriend due to worsening failure to thrive, patient was recently discharged from medical unit where he was for the same reason but according to the family he has not done better, he is not talking for days, not getting out of bed, not going to the bathroom and not eating. He has been feeling depressed hopeless and helpless for months due to conflict with 2 differents girlfriends, he has not been sleeping well, during the interview patient did not answer any of my question just having blank stare. Past psychiatric history no past tx Hospitalization: no Family History no Medical history Problems Medical Problems: (1) Failure to thrive in adult Status: Acute (2) Hypoglycemia Status: Acute (3) Severe dehydration Status: Acute Allergies: Coded Allergies: Unknown: Unable to obtain (Unverified , 07/21/18) Pt refused to respond. Substance Abuse Substance use: No known substance abuse Social History Marital status: single Level of education: hs DPA/Conservatorship: No Psychiatric Objective Eval Review of Systems: Review of Systems: Not Applicable Physical Examination: Physical Examination: Applicable Sleep: Insomnia Appetite: Decreased, Weight Loss Energy: Decreased Interest: Decreased Mental Status Examination: Appearance: Groomed Eye Contact: None Psychomotor Activity: Slow Behavior: Other (not talking ) Speech: Other (not talking ) AFFECT: Flat Mood: Depressed Though Process: Other Thought Content: Delusions Suicidal: No Homicidal: No On 72 hour hold: No Orientation: No orientation Insight: Impared Judgement: Impared Attention Span: Distractible Laboratory Results Laboratory Tests Test 07/21/18 20:46 07/21/18 21:21 07/21/18 22:18 Bedside Glucose 62 mg/dL Prothrombin Time 13.3 Sec Prothrombin Time Ratio 1.0 INR International Normalized Ratio 1.00 Activated Partial Thromboplast 31.4 Sec Time White Blood Count 8.5 10^3/ul Red Blood Count 4.07 10^6/ul Hemoglobin 11.9 g/dl Hematocrit 36.2 % Mean Corpuscular Volume 88.9 fl Mean Corpuscular Hemoglobin 29.2 pg Mean Corpuscular 32.9 g/dl Hemoglobin Concent Red Cell Distribution Width 13.0 % Platelet Count 199 10^3/UL Mean Platelet Volume 12.3 fl Immature Granulocytes % 0.400 % Neutrophils % 64.6 % Lymphocytes % 28.3 % Monocytes % 5.4 % Eosinophils % 0.9 % Basophils % 0.4 % Nucleated Red Blood Cells % 0.0 /100WBC Immature Granulocytes # 0.030 10^3/ul Neutrophils # 5.5 10^3/ul Lymphocytes # 2.4 10^3/ul Monocytes # 0.5 10^3/ul Eosinophils # 0.1 10^3/ul Basophils # 0.0 10^3/ul Nucleated Red Blood Cells # 0.0 10^3/ul Sodium Level 141 mmol/L Potassium Level 3.8 mmol/L Chloride Level 106 mmol/L Carbon Dioxide Level 22 mmol/L Anion Gap 13 Blood Urea Nitrogen 26 mg/dl Creatinine 0.69 mg/dl Est Glomerular Filtrat Rate mL/min > 60 mL/min Glucose Level 71 mg/dl Calcium Level 9.9 mg/dl Total Bilirubin 0.8 mg/dl Direct Bilirubin 0.00 mg/dl Indirect Bilirubin 0.8 mg/dl Aspartate Amino Transf (AST/SGOT) 26 IU/L Alanine 29 IU/L Aminotransferase (ALT/SGPT) Alkaline Phosphatase 66 IU/L Troponin I < 0.012 ng/ml Total Protein 7.4 g/dl Albumin 4.5 g/dl Globulin 2.90 g/dl Albumin/Globulin Ratio 1.55 Free Thyroxine Index 2.33 ug/ml Thyroxine (T4) 7.7 ug/dl Triiodothyronine (T3) Uptake 30.2 % Ethyl Alcohol Level < 10.0 mg/dl Assessment and Plan Assessment/Diagnosis Diagnosis major depressive do with psychosis Recommendation/Plan Medication Management haldol 10 mg po bid with ativan 2 mg po bid and benadryl 25 mg po bid for acute psychosis leading to Grave disability Multiple antipsychotics: No Discharge Disposition: Psychiatric inpatient Legal Status: Place involuntary hold LORENA PORTILLO MD July 22, 2018 02:38
[2018-07-22] MEDS ORDERED: LORA1TAB PO (02:55)
[2018-07-22] MEDS ORDERED: CLON2TAB12 PO (02:55)
[2018-07-22] MEDS ORDERED: OLAN10TA7 PO (02:55)
[2018-07-22] MEDS: INSULIN ASPART [NOVOLOG] 3 ML PEN SC SCH ×5 (05:00→20:35)
[2018-07-22 07:28] VITALS: BP 90/43; PULSE 63; RESP 17
[2018-07-22] MEDS: D5W-0.45 NACL + KCL 20 MEQ 1,000 ML IV SCH ×2 (08:16→20:36)
[2018-07-22] MEDS: OLANZAPINE 10 MG VIAL IM SCH ×2 (09:00→10:26)
[2018-07-22] MEDS ORDERED: LORAZEPAM 2 MG INJ IV SCH (09:00)
[2018-07-22] MEDS ORDERED: HALOPERIDOL 5 MG INJ IM PRN (09:00)
[2018-07-22] MEDS ORDERED: HALOPERIDOL 5 MG INJ IM SCH (09:00)
[2018-07-22] MEDS: ENOXAPARIN 40 MG/0.4 ML SYG SC SCH (10:13)
--- NOTE | 2018-07-22 11:47 | PN ---
Date/Time of Note Date/Time of Note DATE: 07/22/18 TIME: 11:45 Assessment/Plan VTE Prophylaxis Risk score (from Ns)>0 risk: 1 SCD applied (from Ns): Yes Pharmacological prophylaxis: LMWH Lines/Catheters IV Catheter Type (from Nrsg): Peripheral IV Urinary Cath still in place: No Assessment/Plan Hospital Course This is a 27-year-old male being admitted to the [facility] floor for: 1. Failure to thrive secondary to major depressive disorder Telemetry psych evaluation appreciated Consultation with child psychologist tomorrow Patient refusing Zyprexa IM flour worker consultation Patient was previously on Zyprexa, clonazepam and lorazepam Patient continues to refuse to eat, continue IV fluids 2. Protein calorie malnutrition secondary to his p.o. intake Prophylaxis: Lovenox Result Diagram: 07/22/1853507/22/18535 Results 24hrs Laboratory Tests Test 07/21/18 20:46 07/21/18 21:21 07/21/18 22:18 07/22/18 02:35 Bedside Glucose 62 L 131 Prothrombin Time 13.3 Prothrombin Time 1.0 Ratio INR International 1.00 Normalized Ratio Activated 31.4 Partial Thromboplast Time White Blood Count 8.5 Red Blood Count 4.07 L Hemoglobin 11.9 L Hematocrit 36.2 L Mean Corpuscular 88.9 Volume Mean Corpuscular 29.2 Hemoglobin Mean Corpuscular 32.9 Hemoglobin Concent Red Cell 13.0 Distribution Width Platelet Count 199 Mean Platelet Volume 12.3 H Immature 0.400 Granulocytes % Neutrophils % 64.6 Lymphocytes % 28.3 Monocytes % 5.4 Eosinophils % 0.9 Basophils % 0.4 Nucleated Red Blood 0.0 Cells % Immature 0.030 Granulocytes # Neutrophils # 5.5 Lymphocytes # 2.4 Monocytes # 0.5 Eosinophils # 0.1 Basophils # 0.0 Nucleated Red Blood 0.0 Cells # Sodium Level 141 Potassium Level 3.8 Chloride Level 106 Carbon Dioxide Level 22 Anion Gap 13 Blood Urea Nitrogen 26 H Creatinine 0.69 Est Glomerular > 60 Filtrat Rate mL/min Glucose Level 71 Calcium Level 9.9 Total Bilirubin 0.8 Direct Bilirubin 0.00 Indirect Bilirubin 0.8 Aspartate Amino 26 Transf (AST/SGOT) Alanine 29 Aminotransferase (AL T/SGPT) Alkaline Phosphatase 66 Troponin I < 0.012 Total Protein 7.4 Albumin 4.5 Globulin 2.90 Albumin/Globulin 1.55 Ratio Free Thyroxine Index 2.33 Thyroxine (T4) 7.7 Triiodothyronine 30.2 (T3) Uptake Ethyl Alcohol Level < 10.0 H Test 07/22/18 05:05 07/22/18 05:32 07/22/18 05:36 07/22/18 08:06 Bedside Glucose 78 82 Free Thyroxine 0.88 Free 2.54 L Triiodothyronine (T3) pg/mL White Blood Count 6.6 # Red Blood Count 3.43 L Hemoglobin 10.2 L Hematocrit 30.8 L Mean Corpuscular 89.8 Volume Mean Corpuscular 29.7 Hemoglobin Mean Corpuscular 33.1 Hemoglobin Concent Red Cell 13.2 Distribution Width Platelet Count 167 Mean Platelet Volume 12.3 H Immature 0.500 H Granulocytes % Neutrophils % 57.8 Lymphocytes % 32.3 Monocytes % 6.9 Eosinophils % 2.0 Basophils % 0.5 Nucleated Red Blood 0.0 Cells % Immature 0.030 Granulocytes # Neutrophils # 3.8 Lymphocytes # 2.1 Monocytes # 0.5 Eosinophils # 0.1 Basophils # 0.0 Nucleated Red Blood 0.0 Cells # Sodium Level 139 Potassium Level 3.3 L Chloride Level 108 Carbon Dioxide Level 25 Anion Gap 6 Blood Urea Nitrogen 22 H Creatinine 0.72 Est Glomerular > 60 Filtrat Rate mL/min Glucose Level 79 Hemoglobin A1c 5.2 Calcium Level 8.7 Magnesium Level 2.3 Total Bilirubin 0.8 Direct Bilirubin 0.00 Indirect Bilirubin 0.8 Aspartate Amino 21 Transf (AST/SGOT) Alanine 22 Aminotransferase (AL T/SGPT) Alkaline Phosphatase 47 Total Protein 6.3 # Albumin 3.7 Globulin 2.60 Albumin/Globulin 1.42 Ratio Triglycerides Level 66 Cholesterol Level 132 LDL Cholesterol, 88 Calculated HDL Cholesterol 31 Cholesterol/HDL 4.2 Ratio Thyroid Stimulating 0.281 L Hormone (TSH) Subjective 24 Hr Interval Summary Subjective hx not possible: pt non-verbal Exam/Review of Systems Exam Vitals Vital Signs Date Temp Pulse Resp B/P (MAP) Pulse Ox O2 O2 Flow FiO2 Time Delivery Rate 07/22/18 98.5 63 17 90/43 (59) 100 07:28 07/21/18 Room Air 23:54 Intake and Output 07/21/18 07/21/18 07/22/18 1414:59 22:59 06:59 IntakeIntake Total 210 ml BalanceBalance 210 ml Constitutional: non-verbal Respiratory: clear to auscultation Cardiovascular: regular rate and rhythm Gastrointestinal: soft; No distended Musculoskeletal: nl extremities to inspection Results Results 24hrs Laboratory Tests Test 07/21/18 20:46 07/21/18 21:21 07/21/18 22:18 07/22/18 02:35 Bedside Glucose 62 L 131 Prothrombin Time 13.3 Prothrombin Time 1.0 Ratio INR International 1.00 Normalized Ratio Activated 31.4 Partial Thromboplast Time White Blood Count 8.5 Red Blood Count 4.07 L Hemoglobin 11.9 L Hematocrit 36.2 L Mean Corpuscular 88.9 Volume Mean Corpuscular 29.2 Hemoglobin Mean Corpuscular 32.9 Hemoglobin Concent Red Cell 13.0 Distribution Width Platelet Count 199 Mean Platelet Volume 12.3 H Immature 0.400 Granulocytes % Neutrophils % 64.6 Lymphocytes % 28.3 Monocytes % 5.4 Eosinophils % 0.9 Basophils % 0.4 Nucleated Red Blood 0.0 Cells % Immature 0.030 Granulocytes # Neutrophils # 5.5 Lymphocytes # 2.4 Monocytes # 0.5 Eosinophils # 0.1 Basophils # 0.0 Nucleated Red Blood 0.0 Cells # Sodium Level 141 Potassium Level 3.8 Chloride Level 106 Carbon Dioxide Level 22 Anion Gap 13 Blood Urea Nitrogen 26 H Creatinine 0.69 Est Glomerular > 60 Filtrat Rate mL/min Glucose Level 71 Calcium Level 9.9 Total Bilirubin 0.8 Direct Bilirubin 0.00 Indirect Bilirubin 0.8 Aspartate Amino 26 Transf (AST/SGOT) Alanine 29 Aminotransferase (AL T/SGPT) Alkaline Phosphatase 66 Troponin I < 0.012 Total Protein 7.4 Albumin 4.5 Globulin 2.90 Albumin/Globulin 1.55 Ratio Free Thyroxine Index 2.33 Thyroxine (T4) 7.7 Triiodothyronine 30.2 (T3) Uptake Ethyl Alcohol Level < 10.0 H Test 07/22/18 05:05 07/22/18 05:32 07/22/18 05:36 07/22/18 08:06 Bedside Glucose 78 82 Free Thyroxine 0.88 Free 2.54 L Triiodothyronine (T3) pg/mL White Blood Count 6.6 # Red Blood Count 3.43 L Hemoglobin 10.2 L Hematocrit 30.8 L Mean Corpuscular 89.8 Volume Mean Corpuscular 29.7 Hemoglobin Mean Corpuscular 33.1 Hemoglobin Concent Red Cell 13.2 Distribution Width Platelet Count 167 Mean Platelet Volume 12.3 H Immature 0.500 H Granulocytes % Neutrophils % 57.8 Lymphocytes % 32.3 Monocytes % 6.9 Eosinophils % 2.0 Basophils % 0.5 Nucleated Red Blood 0.0 Cells % Immature 0.030 Granulocytes # Neutrophils # 3.8 Lymphocytes # 2.1 Monocytes # 0.5 Eosinophils # 0.1 Basophils # 0.0 Nucleated Red Blood 0.0 Cells # Sodium Level 139 Potassium Level 3.3 L Chloride Level 108 Carbon Dioxide Level 25 Anion Gap 6 Blood Urea Nitrogen 22 H Creatinine 0.72 Est Glomerular > 60 Filtrat Rate mL/min Glucose Level 79 Hemoglobin A1c 5.2 Calcium Level 8.7 Magnesium Level 2.3 Total Bilirubin 0.8 Direct Bilirubin 0.00 Indirect Bilirubin 0.8 Aspartate Amino 21 Transf (AST/SGOT) Alanine 22 Aminotransferase (AL T/SGPT) Alkaline Phosphatase 47 Total Protein 6.3 # Albumin 3.7 Globulin 2.60 Albumin/Globulin 1.42 Ratio Triglycerides Level 66 Cholesterol Level 132 LDL Cholesterol, 88 Calculated HDL Cholesterol 31 Cholesterol/HDL 4.2 Ratio Thyroid Stimulating 0.281 L Hormone (TSH) Medications Medication Current Medications Ondansetron HCl (Zofran Inj) 4 mg BRIDGE ORDER PRN IV NAUSEA/VOMITING; Start 07/22/18 at 00:00; Stop 07/22/18 at 23:59 IV Flush (NS 3 ml) 3 ml PER PROTOCOL IV ; Start 07/22/18 at 00:00 Ondansetron HCl (Zofran Inj) 4 mg Q6H PRN IV NAUSEA/VOMITING; Start 07/22/18 at 00:00 Acetaminophen (Tylenol Tab) 650 mg Q6H PRN PO .PAIN 1-3 OR TEMP; Start 07/22/18 at 00:00 Lorazepam (Ativan) 0.5 mg Q8H PRN IV ANXIETY; Start 07/22/18 at 00:00 Insulin Aspart (Novolog Insulin Pen) NOVOLOG *MILD* ALGORI... Q4 SC ; Start 07/22/18 at 05:00 Miscellaneous Information 1 ea NOTE XX ; Start 07/22/18 at 02:00 Glucose (Glutose) 15 gm Q15M PRN PO DECREASED GLUCOSE; Start 07/22/18 at 02:00 Glucose (Glutose) 22.5 gm Q15M PRN PO DECREASED GLUCOSE; Start 07/22/18 at 02:00 Dextrose (D50w Syringe) 25 ml Q15M PRN IV DECREASED GLUCOSE; Start 07/22/18 at 02:00 Dextrose (D50w Syringe) 50 ml Q15M PRN IV DECREASED GLUCOSE; Start 07/22/18 at 02:00 Glucagon (Glucagen) 1 mg Q15M PRN IM DECREASED GLUCOSE; Start 07/22/18 at 02:00 Glucose (Glutose) 15 gm Q15M PRN BUCCAL DECREASED GLUCOSE; Start 07/22/18 at 02:00 Potassium Chloride/Dextrose/ Sod Cl 1,000 ml @ 70 mls/hr [id number] IV Last administered on 07/22/18at 08:16; Admin Dose 70 MLS/HR; Start 07/22/18 at 08:30 Lorazepam (Ativan) 1 mg Q12 IV ; Start 07/22/18 at 09:00 Haloperidol (Haldol) 5 mg BID PRN IM PSYCHOSIS; Start 07/22/18 at 09:00 Olanzapine (Zyprexa) 5 mg BID IM ; Start 07/22/18 at 09:00 Enoxaparin Sodium (Lovenox) 40 mg DAILY SC Last administered on 07/22/18at 10:13; Admin Dose 40 MG; Start 07/22/18 at 09:00 AGUTAM CONWAY July 22, 2018 11:47
--- NOTE | 2018-07-22 11:55 | RADRPT ---
Vent Rate: 59 bpm RR Interval: 0 msec TN Interval: 110 msec QRS Duration: 90 msec QT Interval: 428 msec QTC Interval: 423 msec P-R-T [place]: 25 - 80 - 62 degrees Sinus bradycardia with short TN Otherwise normal ECG Electronically Signed By: *[facility]
[2018-07-22 14:25] VITALS: BP 95/51; PULSE 61; RESP 17
[2018-07-22 20:02] VITALS: BP 104/50; PULSE 66; RESP 18
[2018-07-23] MEDS: INSULIN ASPART [NOVOLOG] 3 ML PEN SC SCH ×6 (01:00→20:29)
[2018-07-23 01:52] VITALS: BP 113/56; PULSE 64; RESP 18
[2018-07-23] MEDS: D5W-0.45 NACL + KCL 20 MEQ 1,000 ML IV SCH ×4 (04:35→22:46)
[2018-07-23 07:28] VITALS: BP 102/55; PULSE 83; RESP 15
[2018-07-23] MEDS: ENOXAPARIN 40 MG/0.4 ML SYG SC SCH (08:18)
--- NOTE | 2018-07-23 11:10 | PN ---
Date/Time of Note Date/Time of Note DATE: 07/23/18 TIME: 11:10 Assessment/Plan VTE Prophylaxis Risk score (from Nsg)>0 risk: 0 Pharmacological prophylaxis: LMWH Lines/Catheters IV Catheter Type (from Nrsg): Peripheral IV Urinary Cath still in place: No Assessment/Plan Hospital Course This is a 27-year-old male being admitted to the [facility] floor for: 1. 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 Protein calorie malnutrition secondary to his p.o. intake Prophylaxis: Lovenox Result Diagram: 07/22/1836 07/22/18535 Results 24hrs Laboratory Tests Test 07/22/18 12:24 07/22/18 16:44 07/22/18 20:35 07/23/18 00:55 Bedside Glucose 82 89 101 95 Test 07/23/18 04:34 07/23/18 08:17 Bedside Glucose 88 116 Subjective 24 Hr Interval Summary Subjective hx not possible: pt non-verbal Exam/Review of Systems Exam Vitals Vital Signs Date Temp Pulse Resp B/P (MAP) Pulse Ox O2 O2 Flow FiO2 Time Delivery Rate 07/23/18 99.7 83 15 102/55 100 Room Air 07:28 (71) Intake and Output 07/22/18 07/22/18 07/23/18 1515:00 23:00 07:00 IntakeIntake Total 179 ml 1000 ml 1125 ml OutputOutput Total 300 ml BalanceBalance 179 ml 700 ml 1125 ml Respiratory: clear to auscultation Cardiovascular: regular rate and rhythm Gastrointestinal: soft; No distended Musculoskeletal: nl extremities to inspection Results Results 24hrs Laboratory Tests Test 07/22/18 12:24 07/22/18 16:44 07/22/18 20:35 07/23/18 00:55 Bedside Glucose 82 89 101 95 Test 07/23/18 04:34 07/23/18 08:17 Bedside Glucose 88 116 Medications Medication Current Medications IV Flush (NS 3 ml) 3 ml PER PROTOCOL IV ; Start 07/22/18 at 00:00 Ondansetron HCl (Zofran Inj) 4 mg Q6H PRN IV NAUSEA/VOMITING; Start 07/22/18 at 00:00 Acetaminophen (Tylenol Tab) 650 mg Q6H PRN PO .PAIN 1-3 OR TEMP; Start 07/22/18 at 00:00 Lorazepam (Ativan) 0.5 mg Q8H PRN IV ANXIETY; Start 07/22/18 at 00:00 Insulin Aspart (Novolog Insulin Pen) NOVOLOG *MILD* ALGORI... Q4 SC ; Start 07/22/18 at 05:00 Miscellaneous Information 1 ea NOTE XX ; Start 07/22/18 at 02:00 Glucose (Glutose) 15 gm Q15M PRN PO DECREASED GLUCOSE; Start 07/22/18 at 02:00 Glucose (Glutose) 22.5 gm Q15M PRN PO DECREASED GLUCOSE; Start 07/22/18 at 02:00 Dextrose (D50w Syringe) 25 ml Q15M PRN IV DECREASED GLUCOSE; Start 07/22/18 at 02:00 Dextrose (D50w Syringe) 50 ml Q15M PRN IV DECREASED GLUCOSE; Start 07/22/18 at 02:00 Glucagon (Glucagen) 1 mg Q15M PRN IM DECREASED GLUCOSE; Start 07/22/18 at 02:00 Glucose (Glutose) 15 gm Q15M PRN BUCCAL DECREASED GLUCOSE; Start 07/22/18 at 02:00 Potassium Chloride/Dextrose/ Sod Cl 1,000 ml @ 125 mls/hr Q8H IV Last administered on 07/23/18at 04:35; Admin Dose 125 MLS/HR; Start 07/22/18 at 08:30 Haloperidol (Haldol) 5 mg BID PRN IM PSYCHOSIS; Start 07/22/18 at 09:00 Enoxaparin Sodium (Lovenox) 40 mg DAILY SC Last administered on 07/23/18at 08:18; Admin Dose 40 MG; Start 07/22/18 at 09:00 GAUTAM CONWAY July 23, 2018 11:10
[2018-07-23 14:28] VITALS: BP 105/59; PULSE 73
[2018-07-23 20:06] VITALS: BP 100/54; PULSE 84; RESP 19
[2018-07-24] MEDS: INSULIN ASPART [NOVOLOG] 3 ML PEN SC SCH ×6 (01:00→21:00)
[2018-07-24 02:00] VITALS: BP 97/58; PULSE 69; RESP 19
[2018-07-24] MEDS: D5W-0.45 NACL + KCL 20 MEQ 1,000 ML IV SCH ×4 (04:49→20:49)
[2018-07-24 07:38] VITALS: BP 100/62; PULSE 65; RESP 18
[2018-07-24] MEDS: ENOXAPARIN 40 MG/0.4 ML SYG SC SCH (09:19)
--- NOTE | 2018-07-24 13:56 | PN ---
Date/Time of Note Date/Time of Note DATE: 07/24/18 TIME: 13:55 Assessment/Plan VTE Prophylaxis Risk score (from Nsg)>0 risk: 1 Pharmacological prophylaxis: LMWH Lines/Catheters IV Catheter Type (from Nrsg): Peripheral IV Urinary Cath still in place: No Assessment/Plan Hospital Course This is a 27-year-old male being admitted to the [facility] floor for: 1. 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 Protein calorie malnutrition secondary to his p.o. intake Prophylaxis: Lovenox Result Diagram: 07/23/18 1544 07/23/18 1544 Results 24hrs Laboratory Tests Test 07/23/18 15:44 07/23/18 16:56 07/23/18 20:25 07/24/18 01:44 White Blood Count 6.4 Red Blood Count 4.12 #L Hemoglobin 12.2 L Hematocrit 36.2 L Mean Corpuscular 87.9 Volume Mean Corpuscular 29.6 Hemoglobin Mean Corpuscular 33.7 Hemoglobin Concent Red Cell 12.8 Distribution Width Platelet Count 173 Mean Platelet Volume 12.3 H Immature 0.300 Granulocytes % Neutrophils % 82.0 H Lymphocytes % 11.0 L Monocytes % 6.2 Eosinophils % 0.2 Basophils % 0.3 Nucleated Red Blood 0.0 Cells % Immature 0.020 Granulocytes # Neutrophils # 5.3 Lymphocytes # 0.7 L Monocytes # 0.4 Eosinophils # 0.0 Basophils # 0.0 Nucleated Red Blood 0.0 Cells # Sodium Level 139 Potassium Level 3.8 Chloride Level 106 Carbon Dioxide Level 24 Anion Gap 9 Blood Urea Nitrogen 4 #L Creatinine 0.59 L Est Glomerular > 60 Filtrat Rate mL/min Glucose Level 117 Calcium Level 9.4 Bedside Glucose 103 92 108 Test 07/24/18 09:12 07/24/18 12:36 Bedside Glucose 113 109 Subjective 24 Hr Interval Summary Subjective hx not possible: pt non-verbal Exam/Review of Systems Exam Vitals Vital Signs Date Temp Pulse Resp B/P (MAP) Pulse Ox O2 O2 Flow FiO2 Time Delivery Rate 07/24/18 98.2 65 18 100/62 95 Room Air 07:38 (75) Intake and Output 07/23/18 07/23/18 07/24/18 1515:00 23:00 07:00 IntakeIntake Total 875 ml 1000 ml 1000 ml BalanceBalance 875 ml 1000 ml 1000 ml Constitutional: non-verbal Respiratory: clear to auscultation Cardiovascular: regular rate and rhythm Gastrointestinal: soft; No distended Musculoskeletal: nl extremities to inspection Results Results 24hrs Laboratory Tests Test 07/23/18 15:44 07/23/18 16:56 07/23/18 20:25 07/24/18 01:44 White Blood Count 6.4 Red Blood Count 4.12 #L Hemoglobin 12.2 L Hematocrit 36.2 L Mean Corpuscular 87.9 Volume Mean Corpuscular 29.6 Hemoglobin Mean Corpuscular 33.7 Hemoglobin Concent Red Cell 12.8 Distribution Width Platelet Count 173 Mean Platelet Volume 12.3 H Immature 0.300 Granulocytes % Neutrophils % 82.0 H Lymphocytes % 11.0 L Monocytes % 6.2 Eosinophils % 0.2 Basophils % 0.3 Nucleated Red Blood 0.0 Cells % Immature 0.020 Granulocytes # Neutrophils # 5.3 Lymphocytes # 0.7 L Monocytes # 0.4 Eosinophils # 0.0 Basophils # 0.0 Nucleated Red Blood 0.0 Cells # Sodium Level 139 Potassium Level 3.8 Chloride Level 106 Carbon Dioxide Level 24 Anion Gap 9 Blood Urea Nitrogen 4 #L Creatinine 0.59 L Est Glomerular > 60 Filtrat Rate mL/min Glucose Level 117 Calcium Level 9.4 Bedside Glucose 103 92 108 Test 07/24/18 09:12 07/24/18 12:36 Bedside Glucose 113 109 Medications Medication Current Medications IV Flush (NS 3 ml) 3 ml PER PROTOCOL IV ; Start 07/22/18 at 00:00 Ondansetron HCl (Zofran Inj) 4 mg Q6H PRN IV NAUSEA/VOMITING; Start 07/22/18 at 00:00 Acetaminophen (Tylenol Tab) 650 mg Q6H PRN PO .PAIN 1-3 OR TEMP; Start 07/22/18 at 00:00 Lorazepam (Ativan) 0.5 mg Q8H PRN IV ANXIETY; Start 07/22/18 at 00:00 Insulin Aspart (Novolog Insulin Pen) NOVOLOG *MILD* ALGORI... Q4 SC ; Start 07/22/18 at 05:00 Miscellaneous Information 1 ea NOTE XX ; Start 07/22/18 at 02:00 Glucose (Glutose) 15 gm Q15M PRN PO DECREASED GLUCOSE; Start 07/22/18 at 02:00 Glucose (Glutose) 22.5 gm Q15M PRN PO DECREASED GLUCOSE; Start 07/22/18 at 02:00 Dextrose (D50w Syringe) 25 ml Q15M PRN IV DECREASED GLUCOSE; Start 07/22/18 at 02:00 Dextrose (D50w Syringe) 50 ml Q15M PRN IV DECREASED GLUCOSE; Start 07/22/18 at 02:00 Glucagon (Glucagen) 1 mg Q15M PRN IM DECREASED GLUCOSE; Start 07/22/18 at 02:00 Glucose (Glutose) 15 gm Q15M PRN BUCCAL DECREASED GLUCOSE; Start 07/22/18 at 02:00 Potassium Chloride/Dextrose/ Sod Cl 1,000 ml @ 125 mls/hr Q8H IV Last administered on 07/24/18at 07:00; Admin Dose 125 MLS/HR; Start 07/22/18 at 08:30 Haloperidol (Haldol) 5 mg BID PRN IM PSYCHOSIS; Start 07/22/18 at 09:00 Enoxaparin Sodium (Lovenox) 40 mg DAILY SC Last administered on 07/24/18at 09:19; Admin Dose 40 MG; Start 07/22/18 at 09:00 GAUTAM CONWAY July 24, 2018 13:56
[2018-07-24 14:00] VITALS: BP 106/61; PULSE 68; RESP 18
[2018-07-24] MEDS ORDERED: LORAZEPAM 0.5 MG TAB PO PRN (16:00)
[2018-07-24] MEDS ORDERED: LORAZEPAM 2 MG INJ IV PRN (16:00)
--- NOTE | 2018-07-24 16:25 | CONS ---
Date/Time of Note Date/Time of Note DATE: 07/24/18 TIME: 16:21 Consult Date/Type/Reason Admit Date July 21, 2018 at 23:38 Type of Consult Psych Subjective Patient is 27 yo male with history depression, who is currently on [facility] unit, catatonic. Patient is not eatying, not drinking , not talking. Will order Ativan IM. Objective Patient Appearance: Disheveled Voice Loudness: Excessive Variation Mood and Affect Description: Uncooperative Mood or Affect: Depressed (selectively mute) Hallucination Type: None Delusion Description: Not Present KAREN MCINTOSH NP July 24, 2018 16:25
[2018-07-24 19:50] VITALS: BP 124/76; PULSE 81; RESP 18
[2018-07-24] MEDS: LORAZEPAM 2 MG INJ IM SCH (20:57)
[2018-07-25] MEDS: INSULIN ASPART [NOVOLOG] 3 ML PEN SC SCH ×5 (00:03→17:00)
[2018-07-25 01:52] VITALS: BP 114/76; PULSE 78; RESP 18
[2018-07-25] MEDS: LORAZEPAM 2 MG INJ IM SCH ×2 (04:00→12:00)
[2018-07-25] MEDS: D5W-0.45 NACL + KCL 20 MEQ 1,000 ML IV SCH (04:11)
[2018-07-25 07:51] VITALS: BP 91/52; PULSE 78; RESP 18
[2018-07-25] MEDS: ENOXAPARIN 40 MG/0.4 ML SYG SC SCH (08:31)
--- NOTE | 2018-07-25 14:13 | PN ---
Date/Time of Note Date/Time of Note DATE: 07/25/18 TIME: 14:12 Assessment/Plan VTE Prophylaxis Risk score (from Nsg)>0 risk: 2 Pharmacological prophylaxis: LMWH Lines/Catheters IV Catheter Type (from Nrsg): Peripheral IV Urinary Cath still in place: No Assessment/Plan Hospital Course This is a 27-year-old male being admitted to the [facility] floor for: 1. 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 Protein calorie malnutrition secondary to his p.o. intake Prophylaxis: Lovenox DC planning: ornamental metal worker attempting to arrange for transfer to inpatient psychiatry Result Diagram: 07/23/18 1544 07/23/18 1544 Results 24hrs Laboratory Tests Test 07/25/18 00:02 07/25/18 04:10 Bedside Glucose 98 78 Subjective 24 Hr Interval Summary Subjective hx not possible: pt non-verbal Exam/Review of Systems Exam Vitals Vital Signs Date Temp Pulse Resp B/P (MAP) Pulse Ox O2 O2 Flow FiO2 Time Delivery Rate 07/25/18 98.3 78 18 91/52 (65) 93 Room Air 07:51 Intake and Output 07/24/18 07/24/18 07/25/18 1515:00 23:00 07:00 IntakeIntake Total 500 ml BalanceBalance 500 ml Constitutional: non-verbal Respiratory: clear to auscultation Cardiovascular: regular rate and rhythm Gastrointestinal: soft; No distended Musculoskeletal: nl extremities to inspection Results Results 24hrs Laboratory Tests Test 07/25/18 00:02 07/25/18 04:10 Bedside Glucose 98 78 Medications Medication Current Medications IV Flush (NS 3 ml) 3 ml PER PROTOCOL IV ; Start 07/22/18 at 00:00 Ondansetron HCl (Zofran Inj) 4 mg Q6H PRN IV NAUSEA/VOMITING; Start 07/22/18 at 00:00 Acetaminophen (Tylenol Tab) 650 mg Q6H PRN PO .PAIN 1-3 OR TEMP; Start 07/22/18 at 00:00 Insulin Aspart (Novolog Insulin Pen) NOVOLOG *MILD* ALGORI... Q4 SC ; Start 07/22/18 at 05:00 Miscellaneous Information 1 ea NOTE XX ; Start 07/22/18 at 02:00 Glucose (Glutose) 15 gm Q15M PRN PO DECREASED GLUCOSE; Start 07/22/18 at 02:00 Glucose (Glutose) 22.5 gm Q15M PRN PO DECREASED GLUCOSE; Start 07/22/18 at 02:00 Dextrose (D50w Syringe) 25 ml Q15M PRN IV DECREASED GLUCOSE; Start 07/22/18 at 02:00 Dextrose (D50w Syringe) 50 ml Q15M PRN IV DECREASED GLUCOSE; Start 07/22/18 at 02:00 Glucagon (Glucagen) 1 mg Q15M PRN IM DECREASED GLUCOSE; Start 07/22/18 at 02:00 Glucose (Glutose) 15 gm Q15M PRN BUCCAL DECREASED GLUCOSE; Start 07/22/18 at 02:00 Haloperidol (Haldol) 5 mg BID PRN IM PSYCHOSIS Last administered on 07/25/18at 11:21; Admin Dose 5 MG; Start 07/22/18 at 09:00 Enoxaparin Sodium (Lovenox) 40 mg DAILY SC Last administered on 07/24/18at 09:19; Admin Dose 40 MG; Start 07/22/18 at 09:00 Lorazepam (Ativan) 0.5 mg TID PRN PO ANXIETY; Start 07/24/18 at 16:00 Lorazepam (Ativan) 1 mg Q8H IM Last administered on 07/24/18at 20:57; Admin Dose 1 MG; Start 07/24/18 at 20:00 GAUTAM CONWAY July 25, 2018 14:13
[2018-07-25 20:15] VITALS: BP 130/67; PULSE 91; RESP 18
--- NOTE | 2018-07-25 21:45 | EN ---
Date/Time of Note Date/Time of Note DATE: 07/25/18 TIME: 21:43 Event Note Medicine Medicine Event Note I was just told by nurse that pt left AMA. He was escorted out. Nurse had contacted her superiors prior to pt leaving AMA. Police was notified. Pt has a psych issue and PET eval was pending. Nurse has assessed pt and he was alert and oriented and denied SI FRANCISCO PERDOMO MD July 25, 2018 21:45
== END 2018-07-25 21:45 | disposition left against medical advice (07) | DRG 885 ==
LOC: E/R 20:35 → 5EC 23:38 → MERGE 23:38 → EDBEDREQ 07-22 00:11
PROVIDERS: ADMIT Family Medicine; ATTEND Internal Medicine
DX: F33.3 Major depressive disorder, recurrent, severe with psychotic symptoms (principal); Z68.1 Body mass index [BMI] 19.9 or less, adult; E46 Unspecified protein-calorie malnutrition; R62.7 Adult failure to thrive; E16.2 Hypoglycemia, unspecified; E86.0 Dehydration; F17.200 Nicotine dependence, unspecified, uncomplicated
CPT/HCPCS: 36415; 70450; 71045; 80048; 80053; 80061; 80307; 82962; 83036; 83735; 84436; 84439; 84443; 84479; 84481; 84484; 85025; 85610; 85730; 87081; 93005; J1630; J1650; J1815; J2060; J3480; J7030; J7040; J7042

== ENCOUNTER 2018-08-24 17:46 | Emergency (ER) | payer MEDICAID ==
[~2018-08-24] VITALS: Ht 170.2 cm; Wt 76.4 kg
[~2018-08-24 17:46] MED LIST changes: +CLON2TAB12 PO; +LORA1TAB PO; +OLAN10TA7 PO
[2018-08-24 17:51] VITALS: Ht 170.2 cm; Wt 76.4 kg
[2018-08-24] MEDS ORDERED: DIPHENHYDRAMINE 25 MG CAP PO ONE (18:00)
[2018-08-24] MEDS ORDERED: BENZTROPINE 1 MG TAB PO ONE (18:00)
[2018-08-24] MEDS ORDERED: LORAZEPAM 2 MG INJ IV STA (18:39)
[2018-08-24] MEDS ORDERED: SOD CHLORIDE 0.9% 1,000 ML IV STA (18:39)
[2018-08-24] MEDS ORDERED: IBUP-1542 PO (20:05)
[2018-08-24] MEDS ORDERED: BEN25 PO (20:05)
--- NOTE | 2018-08-24 20:08 | ERD ---
ER Documentation Chief Complaint Chief Complaint aloc, dystonic. no sz activity reported. taking new psych meds HPI Patient is a 27-year-old male with history of psychiatric disease and depression who presents for neck pain and twisting of his arms. The patient was brought in by ambulance. He had twisting of the face and arms after taking his new psychiatric medicines today. He had shortness of breath as well. He was discharged from a psychiatric hospital yesterday after being admitted for 2 weeks. His blood sugar was 133 by paramedics. His new medications were benztropine, Neurontin, mirtazapine, and sertraline. He does not currently have a primary doctor. ROS All systems reviewed and are negative except as per history of present illness. Medications Home Meds Active Scripts Diphenhydramine Hcl* (Benadryl*) 25 Mg Cap, 25 MG PO Q6, #10 CAP Prov:JAMARI ROSALES MD 08/24/18 Ibuprofen* (Motrin*) 600 Mg Tab, 600 MG PO Q6H PRN for PAIN AND OR ELEVATED TEMP, #30 TAB Prov:JAMARI ROSALES MD 08/24/18 Olanzapine* (Zyprexa*) 5 Mg Tablet, 5 MG PO QPM, #30 TAB Prov:ILENE LUTZ 05/28/18 Reported Medications Lorazepam* (Lorazepam*) 1 Mg Tablet, 2 MG PO Q8, #60 TAB 07/22/18 Olanzapine* (Zyprexa*) 10 Mg Tablet, 10 MG PO BID, #30 TAB 07/22/18 Clonazepam* (Clonazepam*) 2 Mg Tablet, 3 MG PO BID, TAB 07/22/18 Allergies Allergies: Coded Allergies: No Known Allergy (Unverified , 05/17/18) Unknown: Unable to obtain (Unverified , 07/26/18) Pt refused to respond. PMhx/Soc History of Surgery: No ( ) Anesthesia Reaction: No Hx Neurological Disorder: No Hx Respiratory Disorders: No Hx Cardiac Disorders: No Hx Psychiatric Problems: Yes (Depression/anxiety) Hx Miscellaneous Medical Probl: No Hx Alcohol Use: No Hx Substance Use: No Hx Tobacco Use: No Smoking Status: Current every day smoker FmHx Family History: No diabetes Physical Exam Vitals Vital Signs Date Temp Pulse Resp B/P (MAP) Pulse Ox O2 O2 Flow FiO2 Time Delivery Rate 08/24/18 120 26 106/84 99 Room Air 19:00 (91) 08/24/18 97.9 133 18 123/72 96 17:51 (89) Physical Exam Const: Moderate distress Head: Atraumatic Eyes: Normal Conjunctiva ENT: Normal External Ears, Nose and Mouth. Neck: Full range of motion. No meningismus. Resp: Clear to auscultation bilaterally Cardio: Tachycardic rate without murmur Abd: Soft, non tender, non distended. Normal bowel sounds Skin: No petechiae or rashes Back: No midline or flank tenderness Ext: No cyanosis, or edema Neur: Awake, patient is twisting his neck back and forth as well as twisting his arms Psych: Appears to have akathisia's, negative for suicidal or homicidal ideation Result Diagram: 08/24/18185608/24/181855 Results 24 hrs Laboratory Tests Test 08/24/18 18:56 08/24/18 18:57 Sodium Level 143 mmol/L Potassium Level 4.5 mmol/L Chloride Level 107 mmol/L Carbon Dioxide Level 21 mmol/L Anion Gap 15 Blood Urea Nitrogen 21 mg/dl Creatinine 0.59 mg/dl Est Glomerular Filtrat Rate mL/min > 60 mL/min Glucose Level 152 mg/dl Calcium Level 9.9 mg/dl Total Bilirubin 0.2 mg/dl Direct Bilirubin 0.00 mg/dl Indirect Bilirubin 0.2 mg/dl Aspartate Amino Transf (AST/SGOT) 42 IU/L Alanine Aminotransferase (ALT/SGPT) 31 IU/L Alkaline Phosphatase 69 IU/L Total Protein 8.4 g/dl Albumin 4.9 g/dl Globulin 3.50 g/dl Albumin/Globulin Ratio 1.40 Salicylates Level < 1.0 mg/dl Acetaminophen Level < 10.0 ug/ml Ethyl Alcohol Level < 10.0 mg/dl White Blood Count 14.1 10^3/ul Red Blood Count 3.93 10^6/ul Hemoglobin 11.6 g/dl Hematocrit 35.7 % Mean Corpuscular Volume 90.8 fl Mean Corpuscular Hemoglobin 29.5 pg Mean Corpuscular Hemoglobin Concent 32.5 g/dl Red Cell Distribution Width 13.5 % Platelet Count 292 10^3/UL Mean Platelet Volume 10.8 fl Immature Granulocytes % 0.400 % Neutrophils % 84.1 % Lymphocytes % 10.9 % Monocytes % 4.1 % Eosinophils % 0.3 % Basophils % 0.2 % Nucleated Red Blood Cells % 0.0 /100WBC Immature Granulocytes # 0.060 10^3/ul Neutrophils # 11.8 10^3/ul Lymphocytes # 1.5 10^3/ul Monocytes # 0.6 10^3/ul Eosinophils # 0.0 10^3/ul Basophils # 0.0 10^3/ul Nucleated Red Blood Cells # 0.0 10^3/ul Current Medications Medications Dose Sig/Lia Start Time Status Last (Trade) Ordered Route PRN Stop Time Admin Dose Reason Admin 25 mg ONCE ONCE 08/24/18 DC 08/24/18 Diphenhydrami PO 18:00 18:05 ne HCl 08/24/18 18:01 (Benadryl) Benztropine 2 mg ONCE ONCE 08/24/18 DC 08/24/18 Mesylate PO 18:00 18:05 (Cogentin) 08/24/18 18:01 Sodium 1,000 ml @ Q1H STAT 08/24/18 DC 08/24/18 Chloride 1,000 mls/hr IV 18:39 19:04 08/24/18 19:38 Lorazepam 1 mg ONCE STAT 08/24/18 DC 08/24/18 (Ativan) IV 18:39 19:03 08/24/18 18:41 Procedures/MDM EKG read by me: Rate/Rhythm: Sinus tachycardia rate of 101 Intervals: Normal Impression: Sinus tachycardia without ischemia Patient is a 27-year-old male with a history of psychiatric disease who presents with what appears to be an acute dystonic reaction. The patient was given Cogentin and Benadryl. However he was still having symptoms so was given 1 L of normal saline fluid bolus and Ativan and now feels much better. Laboratory studies are basically normal. I do not believe the patient requires a 5150 hold at this time. I believe outpatient management is appropriate but the patient will need close follow-up with a primary doctor within 24 to 48 hours. Departure Diagnosis: Primary Impression: Neck pain Additional Impression: Dystonic drug reaction Condition: Fair Patient Instructions: Drug Reaction, Dystonic, Neck Pain, No Trauma Referrals: Your psychiatrist Additional Instructions: Llame al doctor LANDON y dennis melissa LELAND PARA DENTRO DE 1-2 NOONAN.Dgale a la secretaria que nosotros le instruimos hacer esta [place].Avise o llame si [place] condic in se empeora antes de la [place]. Regresa aqui si peor o no mejor. JAMARI ROSALES MD Aug 24, 2018 20:08
[2018-08-24 20:45] VITALS: BP 99/61; PULSE 99; RESP 18
== END 2018-08-24 21:01 | disposition home or self-care (01) ==
LOC: E/R 17:46
DX: M54.2 Cervicalgia (principal); G24.02 Drug induced acute dystonia; R00.0 Tachycardia, unspecified
CPT/HCPCS: 36415; 80053; 80307; 85025; 93005; 96374; J2060; J7030; Z7502; Z7610

== ENCOUNTER 2018-08-26 19:30 | Inpatient (IN) | payer MEDICAID ==
[~2018-08-26] VITALS: Ht 182.9 cm; Wt 62.0 kg
[~2018-08-26 19:30] MED LIST changes: +BEN25 PO; +IBUP-1542 PO
--- NOTE | 2018-08-26 20:29 | ERD ---
ER Documentation Chief Complaint Chief Complaint catatonic even on meds; advised to come back x further Psych eval HPI This is a 27-year-old man with a history of severe psychiatric illness and depression presenting with another episode of acute dystonia and muscle spasming to the mouth, neck, and upper extremities. He was seen and evaluated for similar symptom here in our ED 2 days ago and was treated with intravenous diphenhydramine and lorazepam with resolution of symptoms, but was told to return if he has another episode. Family members state when they were able to administer lorazepam p.o. they did so and his symptoms improved and they brought him here for evaluation. Patient is on multiple medications including wilmer ztropine, gabapentin, mirtazapine, and sertraline. He has had no fevers or chills, no tonic-clonic seizure activity, no vomiting, no loss of bowel or bladder control. Patient has had no recent weight loss. ROS All systems reviewed and are negative except as per history of present illness. Medications Home Meds Active Scripts Diphenhydramine Hcl* (Benadryl*) 25 Mg Cap, 25 MG PO Q6, #10 CAP Prov:JAMARI ROSALES MD 08/24/18 Ibuprofen* (Motrin*) 600 Mg Tab, 600 MG PO Q6H PRN for PAIN AND OR ELEVATED TEMP, #30 TAB Prov:JAMARI ROSALES MD 08/24/18 Olanzapine* (Zyprexa*) 5 Mg Tablet, 5 MG PO QPM, #30 TAB Prov:ILENE LUTZ 05/28/18 Reported Medications Lorazepam* (Lorazepam*) 1 Mg Tablet, 2 MG PO Q8, #60 TAB 07/22/18 Olanzapine* (Zyprexa*) 10 Mg Tablet, 10 MG PO BID, #30 TAB 07/22/18 Clonazepam* (Clonazepam*) 2 Mg Tablet, 3 MG PO BID, TAB 07/22/18 Allergies Allergies: Coded Allergies: No Known Allergy (Unverified , 05/17/18) PMhx/Soc Psychiatric illness Medical and Surgical Hx: pt denies Surgical Hx History of Surgery: No ( ) Anesthesia Reaction: No Hx Neurological Disorder: No Hx Respiratory Disorders: No Hx Cardiac Disorders: No Hx Psychiatric Problems: Yes (Depression/anxiety) Hx Miscellaneous Medical Probl: No Hx Alcohol Use: No Hx Substance Use: No Hx Tobacco Use: No Smoking Status: Unknown if ever smoked Physical Exam Vitals Vital Signs Date Temp Pulse Resp B/P (MAP) Pulse Ox O2 O2 Flow FiO2 Time Delivery Rate 08/26/18 98.1 105 29 116/73 99 Room Air 20:14 (87) 08/26/18 97.4 117 20 120/80 98 19:32 (93) Physical Exam GENERAL: Well-developed, well-nourished young man, appears dehydrated, afebrile HEENT: Dry mucous membranes, pink conjunctiva, no cervical spine tenderness or step-off deformities, no goiter, no jaundice or icterus NEURO: Alert and oriented 3, no focal deficits or facial asymmetry, pupils equal round reactive to light CARDIAC: Tachycardic and regular, no murmurs rubs or gallops LUNGS: Clear bilaterally no wheezing crackles or stridor ABDOMEN: Soft nontender, no guarding, no rigidity, no rebound, no psoas sign no obturator sign. SKIN: Warm and dry to touch, no abrasions, contusions, or hematomas, no lacerations, no ecchymosis, no target lesions, and without ulcers EXTREMITIES: No clubbing cyanosis or edema, calves are bilaterally symmetrical, no Homans sign, no popliteal cord sign. Distal pulses equal and bilateral PSYCH: Severely depressed flat affect Result Diagram: 08/26/18201908/26/182019 Results 24 hrs Laboratory Tests Test 08/26/18 20:20 White Blood Count 7.2 10^3/ul Red Blood Count 3.19 10^6/ul Hemoglobin 9.6 g/dl Hematocrit 29.6 % Mean Corpuscular Volume 92.8 fl Mean Corpuscular Hemoglobin 30.1 pg Mean Corpuscular Hemoglobin Concent 32.4 g/dl Red Cell Distribution Width 13.7 % Platelet Count 231 10^3/UL Mean Platelet Volume 11.0 fl Immature Granulocytes % 0.700 % Neutrophils % 59.7 % Lymphocytes % 31.3 % Monocytes % 6.4 % Eosinophils % 1.8 % Basophils % 0.1 % Nucleated Red Blood Cells % 0.0 /100WBC Immature Granulocytes # 0.050 10^3/ul Neutrophils # 4.3 10^3/ul Lymphocytes # 2.2 10^3/ul Monocytes # 0.5 10^3/ul Eosinophils # 0.1 10^3/ul Basophils # 0.0 10^3/ul Nucleated Red Blood Cells # 0.0 10^3/ul Prothrombin Time 12.4 Sec Prothrombin Time Ratio 1.0 INR International Normalized Ratio 0.91 Activated Partial Thromboplast Time 28.5 Sec Urine Color YELLOW Urine Clarity CLEAR Urine pH 5.0 Urine Specific [place] 1.020 Urine Ketones NEGATIVE mg/dL Urine Nitrite NEGATIVE mg/dL Urine Bilirubin NEGATIVE mg/dL Urine Urobilinogen NEGATIVE mg/dL Urine Leukocyte Esterase NEGATIVE Luis Fernando/ul Urine Hemoglobin NEGATIVE mg/dL Urine Glucose NEGATIVE mg/dL Urine Total Protein NEGATIVE mg/dl Sodium Level 141 mmol/L Potassium Level 3.7 mmol/L Chloride Level 106 mmol/L Carbon Dioxide Level 27 mmol/L Anion Gap 8 Blood Urea Nitrogen 13 mg/dl Creatinine 0.68 mg/dl Est Glomerular Filtrat Rate mL/min > 60 mL/min Glucose Level 129 mg/dl Calcium Level 8.7 mg/dl Total Bilirubin 0.2 mg/dl Direct Bilirubin 0.00 mg/dl Indirect Bilirubin 0.2 mg/dl Aspartate Amino Transf (AST/SGOT) 48 IU/L Alanine Aminotransferase (ALT/SGPT) 47 IU/L Alkaline Phosphatase 58 IU/L Troponin I < 0.012 ng/ml Total Protein 7.0 g/dl Albumin 3.9 g/dl Globulin 3.10 g/dl Albumin/Globulin Ratio 1.25 Lipase 340 U/L Salicylates Level < 1.0 mg/dl Urine Opiates Screen Negative Acetaminophen Level < 10.0 ug/ml Urine Barbiturates Negative Urine Amphetamines Screen Negative Urine Benzodiazepines Screen Negative Urine Cocaine Screen Negative Urine Cannabinoids Negative Ethyl Alcohol Level < 10.0 mg/dl Current Medications Medications Dose Sig/Lia Start Time Status Last (Trade) Ordered Route PRN Stop Time Admin Dose Reason Admin Lactated 1,000 ml @ Q1H STAT 08/26/18 DC 08/26/18 Ringer's 1,000 mls/hr IV 20:31 20:46 08/26/18 21:30 Procedures/MDM IV line was established patient was placed on cardiac technician rhythm strip revealed a narrow complex tachycardia at 110 bpm with upright P and T waves. Patient was afebrile EKG performed, read by me revealed a sinus tachycardia at 109 bpm, normal axis, narrow QRS complex, no concerning ST elevations or depressions noted One AP view of the chest performed, read by me reveals no acute infiltrates, normal mediastinum, sharp costophrenic and cardiac borders, no air under the diaphragm. Otherwise unremarkable chest x-ray. I administered 1 L LR IV x1 for dehydration. CBC and electrolytes were unremarkable, liver function test normal, troponin negative, urinalysis negative for infection, drug screen negative, aspirin, Tylenol, ethanol levels negative. It seems patient had a half an hour to an hour of an acute dystonic reaction affecting his face, upper torso, and upper extremities. It seems symptoms improved with lorazepam therapy and most likely offending agent is sertraline, which may have to be discontinued to prevent further episodes. Patient admitted to telemetry setting. Departure Diagnosis: Primary Impression: Acute dystonic reaction due to drugs Additional Impressions: Depression Depression Type: major depressive disorder Major depression recurrence: single episode Active/Remission status: currently active Major depression episode severity: moderate Qualified Codes: F32.1 - Major depressive disorder, single episode, moderate Acute dehydration Catatonia Condition: Fair JUAN SOLIMAN MD Aug 26, 2018 20:29
[2018-08-26] MEDS ORDERED: LACTATED RINGER'S 1,000 ML IV STA (20:31)
[2018-08-27] VITALS (13 sets, daily range): BP systolic 92–109; BP diastolic 41–61; PULSE 80–117; RESP 16–18; Ht 182.9 cm; Wt 62.0 kg
[2018-08-27] MEDS ORDERED: ONDANSETRON 4 MG INJ IV PRN (02:00)
[2018-08-27] MEDS ORDERED: ACETAMINOPHEN 325 MG TAB PO PRN (02:00)
[2018-08-27] MEDS ORDERED: ALBUTEROL/IPRATROPIUM (NEB) 3 ML AMP HHN PRN (02:00)
[2018-08-27] MEDS ORDERED: NACL 0.9% 3 ML SYG IV SCH (02:00)
[2018-08-27] MEDS ORDERED: IBUPROFEN 600 MG TAB PO PRN (02:00)
[2018-08-27] MEDS: DIPHENHYDRAMINE 25 MG CAP PO SCH ×3 (05:52→17:27)
--- NOTE | 2018-08-27 05:56 | HP ---
Date/Time of Note Date/Time of Note DATE: 08/27/18 TIME: 05:52 Assessment/Plan VTE Prophylaxis Pharmacological prophylaxis: heparin Lines/Catheters IV Catheter Type (from Nrsg): Saline Lock Assessment/Plan Assessment/Plan 27-year-old male with a history of depression, psychosis, anxiety, catatonia presents make, shoulder and upper extremity dystonic reaction PLAN -Admit to telemetry unit -IV Benadryl, Ativan as needed -Neurology and psychiatry consult (to adjust psych meds) -Check ferritin/iron to work-up for iron deficiency anemia Result Diagram: 08/27/18 0406 08/27/18 0406 Results 24hrs Laboratory Tests Test 08/26/18 20:20 08/27/18 04:06 White Blood Count 7.2 # 7.4 Red Blood Count 3.19 L 3.03 L Hemoglobin 9.6 L 9.1 L Hematocrit 29.6 L 27.9 L Mean Corpuscular Volume 92.8 92.1 Mean Corpuscular Hemoglobin 30.1 30.0 Mean Corpuscular Hemoglobin Concent 32.4 32.6 Red Cell Distribution Width 13.7 13.9 Platelet Count 231 # 216 Mean Platelet Volume 11.0 H 10.4 Immature Granulocytes % 0.700 H 0.700 H Neutrophils % 59.7 58.7 Lymphocytes % 31.3 31.0 Monocytes % 6.4 7.4 Eosinophils % 1.8 1.9 Basophils % 0.1 0.3 Nucleated Red Blood Cells % 0.0 0.0 Immature Granulocytes # 0.050 H 0.050 H Neutrophils # 4.3 4.4 Lymphocytes # 2.2 2.3 Monocytes # 0.5 0.6 Eosinophils # 0.1 0.1 Basophils # 0.0 0.0 Nucleated Red Blood Cells # 0.0 0.0 Prothrombin Time 12.4 Prothrombin Time Ratio 1.0 INR International Normalized Ratio 0.91 Activated Partial Thromboplast Time 28.5 Urine Color YELLOW Urine Clarity CLEAR Urine pH 5.0 Urine Specific [place] 1.020 Urine Ketones NEGATIVE Urine Nitrite NEGATIVE Urine Bilirubin NEGATIVE Urine Urobilinogen NEGATIVE Urine Leukocyte Esterase NEGATIVE Urine Hemoglobin NEGATIVE Urine Glucose NEGATIVE Urine Total Protein NEGATIVE Sodium Level 141 144 Potassium Level 3.7 3.7 Chloride Level 106 110 Carbon Dioxide Level 27 27 Anion Gap 8 7 Blood Urea Nitrogen 13 12 Creatinine 0.68 0.55 L Est Glomerular Filtrat Rate mL/min > 60 > 60 Glucose Level 129 115 Calcium Level 8.7 8.5 Total Bilirubin 0.2 0.1 L Direct Bilirubin 0.00 0.00 Indirect Bilirubin 0.2 0.1 Aspartate Amino Transf (AST/SGOT) 48 H 44 Alanine Aminotransferase (ALT/SGPT) 47 50 Alkaline Phosphatase 58 56 Troponin I < 0.012 Total Protein 7.0 6.0 #L Albumin 3.9 3.3 Globulin 3.10 2.70 Albumin/Globulin Ratio 1.25 1.22 Lipase 340 H Salicylates Level < 1.0 L Urine Opiates Screen Negative Acetaminophen Level < 10.0 L Urine Barbiturates Negative Urine Amphetamines Screen Negative Urine Benzodiazepines Screen Negative Urine Cocaine Screen Negative Urine Cannabinoids Negative Ethyl Alcohol Level < 10.0 H Magnesium Level 1.9 HPI/ROS Admit Date/Time Admit Date/Time Aug 26, 2018 at 21:38 Hx of Present Illness Patient is a 27-year-old male with a history of depression, psychosis, anxiety, catatonia was brought to the ER complaining of neck stiffness/rigidity as well as shoulder and upper extremity rigidity. To some extent he also was having some facial spasm. Patient was seen in our ER a few days ago for similar symptoms and was treated with IV Benadryl and Ativan was resolution of symptoms. Symptoms recurred and as such she came back for evaluation. Patient had been admitted here multiple times including by myself related to major depression, failure to thrive and catatonia. Previously has had brain MRI, EEG and lab work looks, which were negative. PMH/Family/Social Past Medical History Medical History: other (See HPI) Medications Current Medications IV Flush (NS 3 ml) 3 ml PER PROTOCOL IV ; Start 08/27/18 at 02:00 Lorazepam (Ativan) 0.5 mg Q8H PRN PO .ANXIETY; Start 08/27/18 at 02:00 Ondansetron HCl (Zofran Inj) 4 mg Q6H PRN IV NAUSEA/VOMITING; Start 08/27/18 at 02:00 Acetaminophen (Tylenol Tab) 650 mg Q6H PRN PO .PAIN 1-3 OR TEMP; Start 08/27/18 at 02:00 Heparin Sodium (Porcine) (Heparin (5000 Units/1ml)) 5,000 unit Q12 SC ; Start 08/27/18 at 09:00 Albuterol/ Ipratropium (Duoneb) 3 ml Q2H RESP THERAPY PRN HHN SHORTNESS OF BREATH; Start 08/27/18 at 02:00 Diphenhydramine HCl (Benadryl) 25 mg Q6 PO ; Start 08/27/18 at 06:00 Ibuprofen (Motrin) 600 mg Q6H PRN PO MILD PAIN(1-3)OR ELEVATED TEMP; Start 08/27/18 at 02:00 Olanzapine (Zyprexa) 5 mg QPM PO ; Start 08/27/18 at 21:00 Coded Allergies: No Known Allergy (Unverified , 05/17/18) Past Surgical History Past Surgical Hx: no surgical history Family History Significant Family History: no pertinent family hx Social History Alcohol Use: none Smoking Status: Never smoker Drug Use: none Exam/Review of Systems Vital Signs Vitals Vital Signs Date Temp Pulse Resp B/P (MAP) Pulse Ox O2 O2 Flow FiO2 Time Delivery Rate 08/27/18 97.7 99 18 101/51 98 Room Air 04:22 (68) Intake and Output 08/26/18 08/26/18 08/27/18 1515:00 23:00 07:00 IntakeIntake Total 1000 ml BalanceBalance 1000 ml Exam Constitutional: other (No acute distress) Head: normocephalic, atraumatic Eyes: EOMI Respiratory: clear to auscultation, normal air movement Cardiovascular: regular rate and rhythm, nl pulses Gastrointestinal: soft, non-tender Extremities: normal pulses FRANCISCO PERDOMO MD Aug 27, 2018 05:55
[2018-08-27] MEDS: HEPARIN 5,000 UNIT/1 ML VIAL SC SCH ×2 (08:13→20:34)
--- NOTE | 2018-08-27 17:11 | PN ---
Date/Time of Note Date/Time of Note DATE: 08/27/18 TIME: 17:09 Assessment/Plan VTE Prophylaxis Risk score (from [facility])>0 risk: 0 SCD applied (from [facility]): No SCD contraindicated: low risk/ambulating Pharmacological prophylaxis: NA/contraindicated Pharm contraindication: low risk/ambulating Lines/Catheters IV Catheter Type (from [facility]): Saline Lock Assessment/Plan Hospital Course A/P 1. Acute dystonia, fairly stable, consult behavioral health. 2. Medication nonadherence? Patient does not see a regular specialist of which I find hard to believe. 3. Anemia, medication induced bone marrow suppression? S: Awake alert follows commands. Wants to go home and shower. I updated his brother Abner O: vss PE Pallor droop Regular no murmur rub gallop Clear Benign No edema Result Diagram: 08/27/186 08/27/18 0406 Results 24hrs Laboratory Tests Test 08/26/18 20:20 08/27/18 04:05 08/27/18 04:06 White Blood Count 7.2 # 7.4 Red Blood Count 3.19 L 3.03 L Hemoglobin 9.6 L 9.1 L Hematocrit 29.6 L 27.9 L Mean Corpuscular Volume 92.8 92.1 Mean Corpuscular Hemoglobin 30.1 30.0 Mean Corpuscular Hemoglobin Concent 32.4 32.6 Red Cell Distribution Width 13.7 13.9 Platelet Count 231 # 216 Mean Platelet Volume 11.0 H 10.4 Immature Granulocytes % 0.700 H 0.700 H Neutrophils % 59.7 58.7 Lymphocytes % 31.3 31.0 Monocytes % 6.4 7.4 Eosinophils % 1.8 1.9 Basophils % 0.1 0.3 Nucleated Red Blood Cells % 0.0 0.0 Immature Granulocytes # 0.050 H 0.050 H Neutrophils # 4.3 4.4 Lymphocytes # 2.2 2.3 Monocytes # 0.5 0.6 Eosinophils # 0.1 0.1 Basophils # 0.0 0.0 Nucleated Red Blood Cells # 0.0 0.0 Prothrombin Time 12.4 Prothrombin Time Ratio 1.0 INR International Normalized Ratio 0.91 Activated Partial Thromboplast Time 28.5 Urine Color YELLOW Urine Clarity CLEAR Urine pH 5.0 Urine Specific [place] 1.020 Urine Ketones NEGATIVE Urine Nitrite NEGATIVE Urine Bilirubin NEGATIVE Urine Urobilinogen NEGATIVE Urine Leukocyte Esterase NEGATIVE Urine Hemoglobin NEGATIVE Urine Glucose NEGATIVE Urine Total Protein NEGATIVE Sodium Level 141 144 Potassium Level 3.7 3.7 Chloride Level 106 110 Carbon Dioxide Level 27 27 Anion Gap 8 7 Blood Urea Nitrogen 13 12 Creatinine 0.68 0.55 L Est Glomerular Filtrat Rate mL/min > 60 > 60 Glucose Level 129 115 Calcium Level 8.7 8.5 Total Bilirubin 0.2 0.1 L Direct Bilirubin 0.00 0.00 Indirect Bilirubin 0.2 0.1 Aspartate Amino Transf (AST/SGOT) 48 H 44 Alanine Aminotransferase (ALT/SGPT) 47 50 Alkaline Phosphatase 58 56 Troponin I < 0.012 Total Protein 7.0 6.0 #L Albumin 3.9 3.3 Globulin 3.10 2.70 Albumin/Globulin Ratio 1.25 1.22 Lipase 340 H Salicylates Level < 1.0 L Urine Opiates Screen Negative Acetaminophen Level < 10.0 L Urine Barbiturates Negative Urine Amphetamines Screen Negative Urine Benzodiazepines Screen Negative Urine Cocaine Screen Negative Urine Cannabinoids Negative Ethyl Alcohol Level < 10.0 H Iron Level 90 Total Iron Binding Capacity 227 L Percent Iron Saturation 40 Ferritin 207.0 Magnesium Level 1.9 Exam/Review of Systems Exam Vitals Vital Signs Date Temp Pulse Resp B/P (MAP) Pulse Ox O2 O2 Flow FiO2 Time Delivery Rate 08/27/18 94 16:00 08/27/18 97.9 18 93/41 (58) 98 14:59 08/27/18 Room Air 04:22 Intake and Output 08/26/18 08/26/18 08/27/18 1515:00 23:00 07:00 IntakeIntake Total 1000 ml BalanceBalance 1000 ml Results Results 24hrs Laboratory Tests Test 08/26/18 20:20 08/27/18 04:05 08/27/18 04:06 White Blood Count 7.2 # 7.4 Red Blood Count 3.19 L 3.03 L Hemoglobin 9.6 L 9.1 L Hematocrit 29.6 L 27.9 L Mean Corpuscular Volume 92.8 92.1 Mean Corpuscular Hemoglobin 30.1 30.0 Mean Corpuscular Hemoglobin Concent 32.4 32.6 Red Cell Distribution Width 13.7 13.9 Platelet Count 231 # 216 Mean Platelet Volume 11.0 H 10.4 Immature Granulocytes % 0.700 H 0.700 H Neutrophils % 59.7 58.7 Lymphocytes % 31.3 31.0 Monocytes % 6.4 7.4 Eosinophils % 1.8 1.9 Basophils % 0.1 0.3 Nucleated Red Blood Cells % 0.0 0.0 Immature Granulocytes # 0.050 H 0.050 H Neutrophils # 4.3 4.4 Lymphocytes # 2.2 2.3 Monocytes # 0.5 0.6 Eosinophils # 0.1 0.1 Basophils # 0.0 0.0 Nucleated Red Blood Cells # 0.0 0.0 Prothrombin Time 12.4 Prothrombin Time Ratio 1.0 INR International Normalized Ratio 0.91 Activated Partial Thromboplast Time 28.5 Urine Color YELLOW Urine Clarity CLEAR Urine pH 5.0 Urine Specific [place] 1.020 Urine Ketones NEGATIVE Urine Nitrite NEGATIVE Urine Bilirubin NEGATIVE Urine Urobilinogen NEGATIVE Urine Leukocyte Esterase NEGATIVE Urine Hemoglobin NEGATIVE Urine Glucose NEGATIVE Urine Total Protein NEGATIVE Sodium Level 141 144 Potassium Level 3.7 3.7 Chloride Level 106 110 Carbon Dioxide Level 27 27 Anion Gap 8 7 Blood Urea Nitrogen 13 12 Creatinine 0.68 0.55 L Est Glomerular Filtrat Rate mL/min > 60 > 60 Glucose Level 129 115 Calcium Level 8.7 8.5 Total Bilirubin 0.2 0.1 L Direct Bilirubin 0.00 0.00 Indirect Bilirubin 0.2 0.1 Aspartate Amino Transf (AST/SGOT) 48 H 44 Alanine Aminotransferase (ALT/SGPT) 47 50 Alkaline Phosphatase 58 56 Troponin I < 0.012 Total Protein 7.0 6.0 #L Albumin 3.9 3.3 Globulin 3.10 2.70 Albumin/Globulin Ratio 1.25 1.22 Lipase 340 H Salicylates Level < 1.0 L Urine Opiates Screen Negative Acetaminophen Level < 10.0 L Urine Barbiturates Negative Urine Amphetamines Screen Negative Urine Benzodiazepines Screen Negative Urine Cocaine Screen Negative Urine Cannabinoids Negative Ethyl Alcohol Level < 10.0 H Iron Level 90 Total Iron Binding Capacity 227 L Percent Iron Saturation 40 Ferritin 207.0 Magnesium Level 1.9 Medications Medication Current Medications IV Flush (NS 3 ml) 3 ml PER PROTOCOL IV ; Start 08/27/18 at 02:00 Lorazepam (Ativan) 0.5 mg Q8H PRN PO .ANXIETY; Start 08/27/18 at 02:00 Ondansetron HCl (Zofran Inj) 4 mg Q6H PRN IV NAUSEA/VOMITING; Start 08/27/18 at 02:00 Acetaminophen (Tylenol Tab) 650 mg Q6H PRN PO .PAIN 1-3 OR TEMP; Start 08/27/18 at 02:00 Heparin Sodium (Porcine) (Heparin (5000 Units/1ml)) 5,000 unit Q12 SC ; Start 08/27/18 at 09:00 Albuterol/ Ipratropium (Duoneb) 3 ml Q2H RESP THERAPY PRN HHN SHORTNESS OF BREATH; Start 08/27/18 at 02:00 Diphenhydramine HCl (Benadryl) 25 mg Q6 PO Last administered on 08/27/18at 11:27; Admin Dose 25 MG; Start 08/27/18 at 06:00 Ibuprofen (Motrin) 600 mg Q6H PRN PO MILD PAIN(1-3)OR ELEVATED TEMP; Start 08/27/18 at 02:00 Olanzapine (Zyprexa) 5 mg QPM PO ; Start 08/27/18 at 21:00 REYES HOLBROOK MD Aug 27, 2018 17:11
[2018-08-27] MEDS ORDERED: BENZ0.5T41 PO (17:40)
[2018-08-27] MEDS ORDERED: MIRT7.5T8 PO (17:40)
[2018-08-27] MEDS ORDERED: OLAN7.5T5 PO (17:40)
[2018-08-27] MEDS ORDERED: SERT20OR PO (17:42)
[2018-08-27] MEDS ORDERED: GABA100C14 PO (17:43)
[2018-08-27] MEDS: LORAZEPAM 0.5 MG TAB PO PRN (18:16)
[2018-08-27] MEDS: OLANZAPINE 5 MG TAB PO SCH (20:34)
[2018-08-28] VITALS (10 sets, daily range): BP systolic 96–102; BP diastolic 50–72; PULSE 75–129; RESP 16–18
[2018-08-28] MEDS: DIPHENHYDRAMINE 25 MG CAP PO SCH ×4 (05:58→17:18)
[2018-08-28] MEDS: HEPARIN 5,000 UNIT/1 ML VIAL SC SCH ×2 (08:17→20:58)
[2018-08-28] MEDS: LORAZEPAM 0.5 MG TAB PO PRN (09:12)
--- NOTE | 2018-08-28 11:58 | PN ---
Date/Time of Note Date/Time of Note DATE: 08/28/18 TIME: 11:56 Assessment/Plan VTE Prophylaxis Risk score (from [facility])>0 risk: 0 SCD applied (from [facility]): No SCD contraindicated: other Pharmacological prophylaxis: NA/contraindicated Pharm contraindication: low risk/ambulating Lines/Catheters [facility] Saline Lock Assessment/Plan Hospital Course Assessment plan 1. Acute dystonia. Suspect secondary to psychiatric medications? Psych consult follow. Neurologist was consulted. Follow-up with evaluations. 2. Suspect medication nonadherence. Medication adherence was advised to 3. Anemia. Suspect secondary to psych medication but she marked H&H remained stable. Monitor for now. Disposition plan. Awaiting psychiatric and neuro evaluations. Monitor in-house for now. Anticipate discharge within the next 24 hours if medically stable. Discussed POC with Dr. Huang Result Diagram: 08/28/18 0530 08/28/18 0530 Results 24hrs Laboratory Tests Test 08/28/18 05:30 White Blood Count 7.7 Red Blood Count 3.04 L Hemoglobin 9.1 L Hematocrit 28.3 L Mean Corpuscular Volume 93.1 Mean Corpuscular Hemoglobin 29.9 Mean Corpuscular Hemoglobin Concent 32.2 Red Cell Distribution Width 13.6 Platelet Count 222 Mean Platelet Volume 10.6 H Immature Granulocytes % 1.600 H Neutrophils % 58.6 Lymphocytes % 30.4 Monocytes % 7.0 Eosinophils % 2.0 Basophils % 0.4 Nucleated Red Blood Cells % 0.0 Immature Granulocytes # 0.120 H Neutrophils # 4.5 Lymphocytes # 2.3 Monocytes # 0.5 Eosinophils # 0.2 Basophils # 0.0 Nucleated Red Blood Cells # 0.0 Sodium Level 143 Potassium Level 3.8 Chloride Level 107 Carbon Dioxide Level 27 Anion Gap 9 Blood Urea Nitrogen 13 Creatinine 0.53 L Est Glomerular Filtrat Rate mL/min > 60 Glucose Level 88 Calcium Level 9.0 Phosphorus Level 4.4 Magnesium Level 2.2 Subjective 24 Hr Interval Summary Free Text/Dictation No further reports of dystonia. Comfortable present. Reports having some anxiety. Exam/Review of Systems Exam Vitals Vital Signs Date Temp Pulse Resp B/P (MAP) Pulse Ox O2 O2 Flow FiO2 Time Delivery Rate 08/28/18 97.8 110 16 96/50 (65) 100 11:21 08/27/18 Room Air 04:22 Intake and Output 08/27/18 08/27/18 08/28/18 1515:00 23:00 07:00 IntakeIntake Total 400 ml 800 ml 250 ml OutputOutput Total 4 ml BalanceBalance 400 ml 796 ml 250 ml Constitutional: alert, oriented Psych: anxiety Neck: supple, non-tender Respiratory: clear to auscultation Cardiovascular: regular rate and rhythm Gastrointestinal: non-tender Neurological: [place]ICK[place] II-XII intact, nl mental status, nl speech Results Results 24hrs Laboratory Tests Test 08/28/18 05:30 White Blood Count 7.7 Red Blood Count 3.04 L Hemoglobin 9.1 L Hematocrit 28.3 L Mean Corpuscular Volume 93.1 Mean Corpuscular Hemoglobin 29.9 Mean Corpuscular Hemoglobin Concent 32.2 Red Cell Distribution Width 13.6 Platelet Count 222 Mean Platelet Volume 10.6 H Immature Granulocytes % 1.600 H Neutrophils % 58.6 Lymphocytes % 30.4 Monocytes % 7.0 Eosinophils % 2.0 Basophils % 0.4 Nucleated Red Blood Cells % 0.0 Immature Granulocytes # 0.120 H Neutrophils # 4.5 Lymphocytes # 2.3 Monocytes # 0.5 Eosinophils # 0.2 Basophils # 0.0 Nucleated Red Blood Cells # 0.0 Sodium Level 143 Potassium Level 3.8 Chloride Level 107 Carbon Dioxide Level 27 Anion Gap 9 Blood Urea Nitrogen 13 Creatinine 0.53 L Est Glomerular Filtrat Rate mL/min > 60 Glucose Level 88 Calcium Level 9.0 Phosphorus Level 4.4 Magnesium Level 2.2 Medications Medication Current Medications IV Flush (NS 3 ml) 3 ml PER PROTOCOL IV ; Start 08/27/18 at 02:00 Lorazepam (Ativan) 0.5 mg Q8H PRN PO .ANXIETY Last administered on 08/28/18at 09:12; Admin Dose 0.5 MG; Start 08/27/18 at 02:00 Ondansetron HCl (Zofran Inj) 4 mg Q6H PRN IV NAUSEA/VOMITING; Start 08/27/18 at 02:00 Acetaminophen (Tylenol Tab) 650 mg Q6H PRN PO .PAIN 1-3 OR TEMP; Start 08/27/18 at 02:00 Heparin Sodium (Porcine) (Heparin (5000 Units/1ml)) 5,000 unit Q12 SC ; Start 08/27/18 at 09:00 Albuterol/ Ipratropium (Duoneb) 3 ml Q2H RESP THERAPY PRN HHN SHORTNESS OF BREATH; Start 08/27/18 at 02:00 Diphenhydramine HCl (Benadryl) 25 mg Q6 PO Last administered on 08/27/18at 17:27; Admin Dose 25 MG; Start 08/27/18 at 06:00 Ibuprofen (Motrin) 600 mg Q6H PRN PO MILD PAIN(1-3)OR ELEVATED TEMP; Start 08/27/18 at 02:00 Olanzapine (Zyprexa) 5 mg QPM PO Last administered on 08/27/18at 20:34; Admin Dose 5 MG; Start 08/27/18 at 21:00 TORRIE JACQUES NP Aug 28, 2018 11:58
--- NOTE | 2018-08-28 16:12 | CONSI ---
Assessment/Plan Assessment/Plan Assessment/Plan (Recall) 27 M c/ multiple psychiatric comorbidities, who presents for evaluation of recurrent dystonia.. Clinically consistent w/ a recurrent antipsychotic medication adverse effect.. Recent Head CT is unremarkable. P: Psychotropic medication titration per psychiatry Agree w/ standing anticholinergics, and prn Other management and supportive care per primary Consultation Date/Type/Reason Admit Date/Time Aug 26, 2018 at 21:38 Type of Consult Neurology Reason for Consultation dystonia Requesting Provider: REYES HOLBROOK MD Date/Time of Note DATE: 08/28/18 TIME: 16:08 Hx of Present Illness Patient is a 27-year-old male with a history of depression, psychosis, anxiety, catatonia was brought to the ER complaining of neck stiffness/rigidity as well as shoulder and upper extremity rigidity. To some extent he also was having some facial spasm. Patient was seen in our ER a few days ago for similar symptoms and was treated with IV Benadryl and Ativan was resolution of symptoms. Symptoms recurred and as such she came back for evaluation. Patient had been admitted here multiple times including by myself related to major depression, failure to thrive and catatonia. Previously has had brain MRI, EEG and lab workups, which were negative. He is without complaints today...stating that he wishes to go home. o/w neg Objective Exam Vitals Vital Signs Date Temp Pulse Resp B/P (MAP) Pulse Ox O2 O2 Flow FiO2 Time Delivery Rate 08/28/18 98.1 118 17 98/55 (69) 98 15:34 08/27/18 Room Air 04:22 Intake and Output 08/27/18 08/27/18 08/28/18 1515:00 23:00 07:00 IntakeIntake Total 400 ml 800 ml 250 ml OutputOutput Total 4 ml BalanceBalance 400 ml 796 ml 250 ml Exam PE: Gen Appearance: No Apparent Distress HEENT: Normocephalic Cardiovascular: Regular rate Lungs: Clear bilaterally Abdomen: Soft Extremities: Dry NE: The patient was alert and oriented. Language was normal. Fund of knowledge was normal. Pupils were equal and reactive to light. There was no afferent pupillary defect. Visual deng were normal. Funduscopic examination was limited. Extra-ocular movements were full. Ptosis was absent. There was no nystagmus. Facial sensation was normal. Face was symmetric with normal strength. Hearing was intact. Palate movements were normal. Neck strength was normal. There was normal tongue bulk and speed of movement. Tone was normal. Muscle bulk was normal. I did not see fasciculations. Arms and legs were strong. Vibration sensation was normal. Temperature and pinprick sensation was normal. Rapid alternating movements were normal. There was no dysmetria. There was no intention tremor. Gait was deferred due to bedrest. Arm and leg reflexes were symmetric. Peacock's sign was absent. Plantar responses were flexor. Results Result Diagram: 08/28/18 0530 08/28/18 0530 Results 24hrs Laboratory Tests Test 08/28/18 05:30 White Blood Count 7.7 Red Blood Count 3.04 L Hemoglobin 9.1 L Hematocrit 28.3 L Mean Corpuscular Volume 93.1 Mean Corpuscular Hemoglobin 29.9 Mean Corpuscular Hemoglobin Concent 32.2 Red Cell Distribution Width 13.6 Platelet Count 222 Mean Platelet Volume 10.6 H Immature Granulocytes % 1.600 H Neutrophils % 58.6 Lymphocytes % 30.4 Monocytes % 7.0 Eosinophils % 2.0 Basophils % 0.4 Nucleated Red Blood Cells % 0.0 Immature Granulocytes # 0.120 H Neutrophils # 4.5 Lymphocytes # 2.3 Monocytes # 0.5 Eosinophils # 0.2 Basophils # 0.0 Nucleated Red Blood Cells # 0.0 Sodium Level 143 Potassium Level 3.8 Chloride Level 107 Carbon Dioxide Level 27 Anion Gap 9 Blood Urea Nitrogen 13 Creatinine 0.53 L Est Glomerular Filtrat Rate mL/min > 60 Glucose Level 88 Calcium Level 9.0 Phosphorus Level 4.4 Magnesium Level 2.2 Past Medical History Medical History: other (See HPI) Home Meds Active Scripts Diphenhydramine Hcl* (Benadryl*) 25 Mg Cap, 25 MG PO Q6, #10 CAP Prov:JAMARI ROSALES MD 08/24/18 Ibuprofen* (Motrin*) 600 Mg Tab, 600 MG PO Q6H PRN for PAIN AND OR ELEVATED TEMP, #30 TAB Prov:JAMARI ROSALES MD 08/24/18 Olanzapine* (Zyprexa*) 5 Mg Tablet, 5 MG PO QPM, #30 TAB Prov:ILENE LUTZ 05/28/18 Reported Medications Gabapentin* (Gabapentin*) 100 Mg Capsule, 100 MG PO TID, #90 CAP 08/27/18 Sertraline HCl (Zoloft) 20 Mg/1 Ml Oral.conc, 50 MG PO DAILY 08/27/18 Mirtazapine* (Mirtazapine*) 7.5 Mg Tablet, 10.75 MG PO HS, TAB 08/27/18 Olanzapine* (Olanzapine*) 7.5 Mg Tablet, 5 MG PO BID, #30 TAB 08/27/18 Benztropine Mesylate* (Benztropine Mesylate*) 0.5 Mg Tablet, 0.5 MG PO BID, TAB 08/27/18 Lorazepam* (Lorazepam*) 1 Mg Tablet, 2 MG PO Q8, #60 TAB 07/22/18 Olanzapine* (Zyprexa*) 10 Mg Tablet, 10 MG PO BID, #30 TAB 07/22/18 Clonazepam* (Clonazepam*) 2 Mg Tablet, 3 MG PO BID, TAB 07/22/18 Medications Current Medications IV Flush (NS 3 ml) 3 ml PER PROTOCOL IV ; Start 08/27/18 at 02:00 Lorazepam (Ativan) 0.5 mg Q8H PRN PO .ANXIETY Last administered on 08/28/18at 09:12; Admin Dose 0.5 MG; Start 08/27/18 at 02:00 Ondansetron HCl (Zofran Inj) 4 mg Q6H PRN IV NAUSEA/VOMITING; Start 08/27/18 at 02:00 Acetaminophen (Tylenol Tab) 650 mg Q6H PRN PO .PAIN 1-3 OR TEMP; Start 08/27/18 at 02:00 Heparin Sodium (Porcine) (Heparin (5000 Units/1ml)) 5,000 unit Q12 SC ; Start 08/27/18 at 09:00 Albuterol/ Ipratropium (Duoneb) 3 ml Q2H RESP THERAPY PRN HHN SHORTNESS OF [place] ATH; Start 08/27/18 at 02:00 Diphenhydramine HCl (Benadryl) 25 mg Q6 PO Last administered on 08/28/18at 11:59; Admin Dose 25 MG; Start 08/27/18 at 06:00 Ibuprofen (Motrin) 600 mg Q6H PRN PO MILD PAIN(1-3)OR ELEVATED TEMP; Start 08/27/18 at 02:00 Olanzapine (Zyprexa) 5 mg QPM PO Last administered on 08/27/18at 20:34; Admin Dose 5 MG; Start 08/27/18 at 21:00 Allergies: Coded Allergies: No Known Allergy (Unverified , 05/17/18) Past Surgical History Past Surgical Hx: no surgical history Social History Alcohol Use: none Smoking Status: Never smoker Drug Use: none FIDEL CHAVEZ Aug 28, 2018 16:12
[2018-08-28] MEDS ORDERED: clonAZEPAM 0.5 MG TAB PO SCH (17:00)
--- NOTE | 2018-08-28 17:06 | PSY ---
Date/Time of Note Date/Time of Note DATE: 08/28/18 TIME: 17:00 Psychiatric Subjective Eval Consent Pt consented to telemedicine: No Subjective Evaluation Patient location: inpatient Chief Complaint: catatonic even on meds; advised to come back x further Psych eval History of present illness Patient is a 27 year old male with history is catatonia, and currently on the telemetry unit. On a [id number] evaluation, patient is Occitan-speaking only, translation done by staff. Patient denies suicidal ideation, but admits having occasional AH before catatonia set in. Patient has poor coping skills. Explai amalia risk and benefits of his antidepressant antipsychotic antianxiety medication and he verbalized understanding. Past psychiatric history Provide supportive therapy Hospitalization: other Medical history Problems Medical Problems: (1) Acute dehydration Status: Acute (2) Acute dystonic reaction due to drugs Status: Acute (3) Balanitis Status: Acute (4) Balanitis Status: Acute (5) Catatonia Status: Acute (6) Catatonia Status: Acute (7) Depression Status: Acute (8) Dystonic drug reaction Status: Acute (9) Failure to thrive in adult Status: Acute (10) Hypoglycemia Status: Acute (11) Hypokalemia Status: Acute (12) Hypokalemia Status: Acute (13) Neck pain Status: Acute (14) Severe dehydration Status: Acute Allergies: Coded Allergies: No Known Allergy (Unverified , 05/17/18) Substance Abuse Substance abuse history: No Prior substance abuse treatmen: No Social History Marital status: other DPA/Conservatorship: No Psychiatric Objective Eval Physical Examination: Appetite: Decreased Energy: Adequate Interest: Adequate Mental Status Examination: Appearance: Poor Hygiene Eye Contact: Fair Psychomotor Activity: Slow Behavior: Cooperative Speech: Soft AFFECT: Constricted Mood: Anxious Though Process: Other Thought Content: Hallucinations Suicidal: No Homicidal: No On 72 hour hold: No Orientation: x4 Cognition: Alert Insight: Moderate Judgement: Moderate Attention Span: Distractible Laboratory Results Laboratory Tests Test 08/26/18 20:20 08/27/18 04:05 08/27/18 04:06 08/28/18 05:30 White Blood 7.2 10^3/ul 7.4 10^3/ul 7.7 10^3/ul Count Red Blood Count 3.19 10^6/ul 3.03 10^6/ul 3.04 10^6/ul Hemoglobin 9.6 g/dl 9.1 g/dl 9.1 g/dl Hematocrit 29.6 % 27.9 % 28.3 % Mean Corpuscular 92.8 fl 92.1 fl 93.1 fl Volume Mean Corpuscular 30.1 pg 30.0 pg 29.9 pg Hemoglobin Mean Corpuscular 32.4 g/dl 32.6 g/dl 32.2 g/dl Hemoglobin Aruna nt Red Cell 13.7 % 13.9 % 13.6 % Distribution Width Platelet Count 231 10^3/UL 216 10^3/UL 222 10^3/UL Mean Platelet 11.0 fl 10.4 fl 10.6 fl Volume Immature 0.700 % 0.700 % 1.600 % Granulocytes % Neutrophils % 59.7 % 58.7 % 58.6 % Lymphocytes % 31.3 % 31.0 % 30.4 % Monocytes % 6.4 % 7.4 % 7.0 % Eosinophils % 1.8 % 1.9 % 2.0 % Basophils % 0.1 % 0.3 % 0.4 % Nucleated Red 0.0 /100WBC 0.0 /100WBC 0.0 /100WBC Blood Cells % Immature 0.050 10^3/ul 0.050 10^3/ul 0.120 10^3/ul Granulocytes # Neutrophils # 4.3 10^3/ul 4.4 10^3/ul 4.5 10^3/ul Lymphocytes # 2.2 10^3/ul 2.3 10^3/ul 2.3 10^3/ul Monocytes # 0.5 10^3/ul 0.6 10^3/ul 0.5 10^3/ul Eosinophils # 0.1 10^3/ul 0.1 10^3/ul 0.2 10^3/ul Basophils # 0.0 10^3/ul 0.0 10^3/ul 0.0 10^3/ul Nucleated Red 0.0 10^3/ul 0.0 10^3/ul 0.0 10^3/ul Blood Cells # Prothrombin Time 12.4 Sec Prothrombin Time 1.0 Ratio INR 0.91 International Normalized Ratio Activated 28.5 Sec Partial Thrombop last Time Urine Color YELLOW Urine Clarity CLEAR Urine pH 5.0 Urine Specific 1.020 Snook Urine Ketones NEGATIVE mg/dL Urine Nitrite NEGATIVE mg/dL Urine Bilirubin NEGATIVE mg/dL Urine NEGATIVE mg/dL Urobilinogen Urine Leukocyte NEGATIVE Luis Fernando/ul Esterase Urine Hemoglobin NEGATIVE mg/dL Urine Glucose NEGATIVE mg/dL Urine Total NEGATIVE mg/dl Protein Sodium Level 141 mmol/L 144 mmol/L 143 mmol/L Potassium Level 3.7 mmol/L 3.7 mmol/L 3.8 mmol/L Chloride Level 106 mmol/L 110 mmol/L 107 mmol/L Carbon Dioxide 27 mmol/L 27 mmol/L 27 mmol/L Level Anion Gap 8 7 9 Blood Urea 13 mg/dl 12 mg/dl 13 mg/dl Nitrogen Creatinine 0.68 mg/dl 0.55 mg/dl 0.53 mg/dl Est Glomerular > 60 mL/min > 60 mL/min > 60 mL/min Filtrat Rate mL/min Glucose Level 129 mg/dl 115 mg/dl 88 mg/dl Calcium Level 8.7 mg/dl 8.5 mg/dl 9.0 mg/dl Total Bilirubin 0.2 mg/dl 0.1 mg/dl Direct Bilirubin 0.00 mg/dl 0.00 mg/dl Indirect 0.2 mg/dl 0.1 mg/dl Bilirubin Aspartate Amino 48 IU/L 44 IU/L Transf (AST/SGOT ) Alanine 47 IU/L 50 IU/L Aminotransferase (ALT/SGPT) Alkaline 58 IU/L 56 IU/L Phosphatase Troponin I < 0.012 ng/ml Total Protein 7.0 g/dl 6.0 g/dl Albumin 3.9 g/dl 3.3 g/dl Globulin 3.10 g/dl 2.70 g/dl Albumin/Globulin 1.25 1.22 Ratio Lipase 340 U/L Salicylates < 1.0 mg/dl Level Urine Opiates Negative Screen Acetaminophen < 10.0 ug/ml Level Urine Negative Barbiturates Urine Negative Amphetamines Screen Urine Negative Benzodiazepines Screen Urine Cocaine Negative Screen Urine Negative Cannabinoids Ethyl Alcohol < 10.0 mg/dl Level Iron Level 90 ug/dl Total Iron 227 ug/dl Binding Capacity Percent Iron 40 % SAT Saturation Ferritin 207.0 ng/ml Magnesium Level 1.9 mg/dl 2.2 mg/dl Phosphorus Level 4.4 mg/dl Assessment and Plan Assessment/Diagnosis Diagnosis History Conversion disorder Recommendation/Plan Medication Management Klonopin 1 mg 3 times a day, Zyprexa 5 mg daily, 7.5 mg at bedtime Multiple antipsychotics: No Psychotherapy Provide supportive therapy Discharge Disposition: Other Legal Status: Voluntary (Patient does not meet criteria for 5150 hold.) KAREN MCINTOSH NP Aug 28, 2018 17:06
[2018-08-28] MEDS ORDERED: clonAZEPAM 0.5 MG TAB PO ONE (18:00)
[2018-08-28] MEDS: OLANZAPINE 5 MG TAB PO SCH (20:58)
[2018-08-28] MEDS: clonAZEPAM 0.5 MG TAB PO SCH (20:58)
[2018-08-28] MEDS ORDERED: MIRTAZAPINE 15 MG TAB PO SCH (21:00)
[2018-08-29] VITALS: BP 103/48; PULSE 106; PULSE 108; RESP 18
[2018-08-29] MEDS: DIPHENHYDRAMINE 25 MG CAP PO SCH ×4 (00:50→12:00)
[2018-08-29] MEDS ORDERED: LORAZEPAM 2 MG INJ IV PRN (02:00)
[2018-08-29 04:00] VITALS: BP 92/46; PULSE 109; PULSE 96; RESP 18
[2018-08-29] MEDS: clonAZEPAM 0.5 MG TAB PO SCH ×3 (05:50→14:00)
[2018-08-29 07:19] VITALS: BP 101/50; PULSE 97; RESP 16
[2018-08-29] MEDS: HEPARIN 5,000 UNIT/1 ML VIAL SC SCH (08:21)
[2018-08-29 08:39] VITALS: PULSE 104
[2018-08-29] MEDS ORDERED: OLAN5TAB5 PO (09:13)
[2018-08-29] MEDS ORDERED: CLON0.5T14 PO (09:14)
[2018-08-29] MEDS ORDERED: MIRT15TA5 PO (09:14)
--- NOTE | 2018-08-29 09:15 | PDOCDIS ---
Discharge Instructions DIAGNOSIS Discharge Diagnosis 1. Acute dystonia. 2. Suspect medication nonadherence. 3. Anemia. CONDITION [id number] Patient Condition: [id number] Stable FOLLOW UP/APPOINTMENTS Follow-up Plan 1. Follow up with your psychiatrist in one week 2. Follow up with your primary care doctor in one week TORRIE JACQUES NP Aug 29, 2018 09:15
[2018-08-29 11:26] VITALS: BP 95/51; PULSE 117; PULSE 125; RESP 20
[2018-08-29 12:21] VITALS: PULSE 119
--- NOTE | 2018-08-29 13:33 | CONS ---
Assessment/Plan Assessment/Plan Assessment/Plan (Recall) 27 M c/ multiple psychiatric comorbidities, who presents for evaluation of recurrent dystonia.. Clinically consistent w/ a recurrent antipsychotic medication adverse effect.. Recent Head CT is unremarkable. P: Psychotropic medication titration per psychiatry Agree w/ standing anticholinergics, and prn Other management and supportive care per primary Consultation Date/Type/Reason Admit Date/Time Aug 26, 2018 at 21:38 Type of Consult Neurology Reason for Consultation dystonia Requesting Provider: REYES HOLBROOK MD Date/Time of Note DATE: 08/29/18 TIME: 13:33 24 HR Interval Summary Free Text/Dictation pending d/c Exam/Review of Systems Exam Vitals Vital Signs Date Temp Pulse Resp B/P (MAP) Pulse Ox O2 O2 Flow FiO2 Time Delivery Rate 08/29/18 119 12:21 08/29/18 98.0 20 95/51 (66) 98 11:26 08/27/18 Room Air 04:22 Intake and Output 08/28/18 08/28/18 08/29/18 1515:00 23:00 07:00 IntakeIntake Total 700 ml 350 ml 850 ml BalanceBalance 700 ml 350 ml 850 ml Results Result Diagram: 08/28/18 0530 08/28/18 0530 Medications Medication Current Medications IV Flush (NS 3 ml) 3 ml PER PROTOCOL IV ; Start 08/27/18 at 02:00 Ondansetron HCl (Zofran Inj) 4 mg Q6H PRN IV NAUSEA/VOMITING; Start 08/27/18 at 02:00 Acetaminophen (Tylenol Tab) 650 mg Q6H PRN PO .PAIN 1-3 OR TEMP; Start 08/27/18 at 02:00 Heparin Sodium (Porcine) (Heparin (5000 Units/1ml)) 5,000 unit Q12 SC ; Start 08/27/18 at 09:00 Albuterol/ Ipratropium (Duoneb) 3 ml Q2H RESP THERAPY PRN HHN SHORTNESS OF BREATH; Start 08/27/18 at 02:00 Diphenhydramine HCl (Benadryl) 25 mg Q6 PO Last administered on 08/29/18at 00:50; Admin Dose 25 MG; Start 08/27/18 at 06:00 Ibuprofen (Motrin) 600 mg Q6H PRN PO MILD PAIN(1-3)OR ELEVATED TEMP; Start 08/27/18 at 02:00 Olanzapine (Zyprexa) 5 mg QPM PO Last administered on 08/28/18at 20:58; Admin Dose 5 MG; Start 08/27/18 at 21:00 Mirtazapine (Remeron) 15 mg HS PO Last administered on 08/28/18at 20:58; Admin Dose 15 MG; Start 08/28/18 at 21:00 Clonazepam (Klonopin) 1 mg Q8H PO Last administered on 08/29/18at 05:50; Admin Dose 1 MG; Start 08/28/18 at 21:00 Lorazepam (Ativan) 0.5 mg Q12 PRN IV ANXIETY; Start 08/29/18 at 02:00 FIDEL CHAVEZ Aug 29, 2018 13:33
--- NOTE | 2018-09-02 11:16 | DS ---
Date/Time of Note Date/Time of Note DATE: 09/02/18 TIME: 11:13 Discharge Summary Admission/Discharge Info Admit Date/Time Aug 26, 2018 at 21:38 Discharge Date/Time Aug 29, 2018 at 14:52 Discharge Diagnosis 1. Acute dystonia. 2. Suspect medication nonadherence. 3. Anemia. Patient Condition: Stable Hospital Course This is a 27-year-old male with history of depression, psychosis, anxiety, catatonia, who was brought to the ER complaining of neck stiffness and rigidity as well as shoulder and upper extremity rigidity. There was suspect facial involvement with facial spasm. He reportedly was seen in the ER for similar symptoms and was given IV Benadryl and Ativan for this. Of note his previous MRI and EEG showed no significant findings. He was noted with dystonia suspect secondary to his psychotropic medications. He was seen by neurologist as well as by psych consult. We did have psychiatric medications adjusted and the patient did have good response to this. His dystonia did resolve. He was otherwise optimized medically. He did have suspect medication nonadherence and he was advised for medication adherence. During his course of stay he did improve. The plan of care was discussed with the patient and patient verbalizes understanding. On the day of discharge patient was in stable condition Discussed POC with Dr. [facility] Active Scripts Mirtazapine* (Mirtazapine*) 15 Mg Tablet, 15 MG PO HS, #30 TAB Prov:TORRIE JACQUES [employer]ST[employer] SUPERVISOR 08/29/18 Clonazepam* (Clonazepam*) 0.5 Mg Tablet, 1 MG PO Q8H, #30 TAB Prov:TORRIE JACQUES [employer] SUPERVISOR 08/29/18 Olanzapine* (Zyprexa*) 5 Mg Tablet, 5 MG PO QPM, #30 TAB Prov:TORRIE JACQUES [employer]ST[employer] SUPERVISOR 08/29/18 Discontinued Reported Medications Gabapentin* (Gabapentin*) 100 Mg Capsule, 100 MG PO TID, #90 CAP 08/27/18 Sertraline HCl (Zoloft) 20 Mg/1 Ml Oral.conc, 50 MG PO DAILY 08/27/18 Mirtazapine* (Mirtazapine*) 7.5 Mg Tablet, 10.75 MG PO HS, TAB 08/27/18 Olanzapine* (Olanzapine*) 7.5 Mg Tablet, 5 MG PO BID, #30 TAB 08/27/18 Benztropine Mesylate* (Benztropine Mesylate*) 0.5 Mg Tablet, 0.5 MG PO BID, TAB 08/27/18 Lorazepam* (Lorazepam*) 1 Mg Tablet, 2 MG PO Q8, #60 TAB 07/22/18 Olanzapine* (Zyprexa*) 10 Mg Tablet, 10 MG PO BID, #30 TAB 07/22/18 Clonazepam* (Clonazepam*) 2 Mg Tablet, 3 MG PO BID, TAB 07/22/18 Discontinued Scripts Diphenhydramine Hcl* (Benadryl*) 25 Mg Cap, 25 MG PO Q6, #10 CAP Prov:JAMARI ROSALES MD 08/24/18 Ibuprofen* (Motrin*) 600 Mg Tab, 600 MG PO Q6H PRN for PAIN AND OR ELEVATED TEMP, #30 TAB Prov:JAMARI ROSALES MD 08/24/18 Olanzapine* (Zyprexa*) 5 Mg Tablet, 5 MG PO QPM, #30 TAB Prov:ILENE LUTZ 05/28/18 Follow-up Plan 1. Follow up with your psychiatrist in one week 2. Follow up with your primary care doctor in one week Primary Care Provider Care Physician No Primary Time spent on discharge: > 30 minutes TORRIE JACQUES NP Sep 02, 2018 11:16
== END 2018-08-29 14:52 | disposition home or self-care (01) | DRG 93 ==
LOC: E/R 19:30 → 6WM 21:38
PROVIDERS: ADMIT Internal Medicine; ATTEND Internal Medicine
DX: G24.8 Other dystonia (principal); F06.1 Catatonic disorder due to known physiological condition; D64.9 Anemia, unspecified; F32.9 Major depressive disorder, single episode, unspecified; F41.9 Anxiety disorder, unspecified; F29 Unspecified psychosis not due to a substance or known physiological condition; Z91.14 Patient's other noncompliance with medication regimen; R25.8 Other abnormal involuntary movements; T50.905A Adverse effect of unspecified drugs, medicaments and biological substances, initial encounter
CPT/HCPCS: 36415; 71045; 80048; 80053; 80307; 81003; 82728; 83540; 83690; 83735; 84100; 84484; 85025; 85610; 85730; 87081; 93005; 96360; J1644; J7120